=== PATIENT | male | born 1945 | race Caucasian/White ===

== ENCOUNTER 2016-07-30 14:30 | Emergency (ER) | payer MEDICARE, BC ==
--- NOTE | 2016-07-30 16:21 | ER Document Report ---
ED Medical Screen (RME) - General Chief Complaint: Shortness Of Breath Stated Complaint: SHORT OF BREATH Time Seen by Provider: 07/30/16 16:15 Mode of Arrival: Wheelchair Information source: Patient TRAVEL OUTSIDE OF THE [place] IN LAST 30 DAYS: No - HPI Patient complains to provider of: Breathing, generalized weakness, nausea, headache, shortness of breath Notes: 07/30/16 16:20 Patient is a 70-year-old male who presents to the emergency room complaining of generalized weakness, headache, dizziness, chest tightness, shortness of breath , with nausea, symptoms started this morning, feels as though he was outside working too hard in the sun in the garden yesterday and may have over worked himself - Related Data Allergies/Adverse Reactions: No Known Allergies Allergy (Verified 07/30/16 14:35) Past Medical History - Past Medical History Cardiac Medical History: Reports: Hx Coronary Artery Disease, Hx Heart Attack, Hx Hypercholesterolemia, Hx Hypertension Pulmonary Medical History: Denies: Hx Asthma, Hx Bronchitis, Hx COPD, Hx Pneumonia, Hx Tuberculosis Neurological Medical History: Denies: Hx Cerebrovascular Accident, Hx Seizures Renal/ Medical History: Denies: Hx Peritoneal Dialysis Musculoskeltal Medical History: Reports Hx Arthritis Psychiatric Medical History: Denies: Hx Depression Past Surgical History: Reports: Hx Cardiac Surgery - Stent, Hx Orthopedic Surgery - Left foot, right ear, Hx Tonsillectomy. Denies: Hx Pacemaker - Immunizations Hx Diphtheria, Pertussis, Tetanus Vaccination: Yes Physical Exam - Vital signs Vitals: Temp Pulse Resp BP Pulse Ox 99.0 F 94 18 138/67 H 97 07/30/16 14:35 07/30/16 14:35 07/30/16 14:35 07/30/16 14:35 07/30/16 14:35 Course - Vital Signs Vital signs: Temp Pulse Resp BP Pulse Ox 99.0 F 94 18 138/67 H 97 07/30/16 14:35 07/30/16 14:35 07/30/16 14:35 07/30/16 14:35 07/30/16 14:35
[2016-07-30] MEDS: NORMAL SALINE 1000 ML 1,000 ML IV PRN ×2 (16:46→20:35)
[2016-07-30 16:57] LABS: ABSOLUTE BASOPHILS # (AUTO) 0.1 10^3/uL (0.0-0.2); ABSOLUTE EOSINOPHILS # (AUTO) 0.2 10^3/uL (0.0-0.6); ABSOLUTE LYMPHOCYTES (AUTO) 3.4 10^3/uL (0.5-4.7); ABSOLUTE MONOCYTES (AUTO) 0.9 10^3/uL (0.1-1.4); ABSOLUTE NEUT (AUTO) 6.4 10^3/uL (1.7-8.2); BASOPHILS % (AUTO) 0.9 % (0-2); EOSINOPHILS % (AUTO) 2.2 % (0-6); HEMATOCRIT 38.4 % (37.9-51.0); HEMOGLOBIN 12.7 g/dL (13.5-17.0); HGB HCT DIFFERENCE -0.3; LYMPHOCYTES % (AUTO) 30.7 % (13-45); MEAN CORPUSCULAR HGB CONC 33.1 g/dL (32.0-36.0); MEAN CORPUSCULAR VOLUME 91 fl (80-97); RED BLOOD COUNT 4.23 10^6/uL (4.35-5.55); SEGMENTED NEUTROPHILS % (AUTO) 58.2 % (42-78)
[2016-07-30 17:01] LABS: APPEARANCE,URINE CLEAR; BILIRUBIN,URINE NEGATIVE (NEGATIVE); GLUCOSE, URINE 50 mg/dL (NEGATIVE); KETONES,URINE NEGATIVE (NEGATIVE); LEUKOCYTE ESTERASE,URINE NEGATIVE (NEGATIVE); NITRITE,URINE NEGATIVE (NEGATIVE); PROTEIN,URINE 100 mg/dL (NEGATIVE); URINE SPECIFIC GRAVITY 1.009; UROBILINOGEN,URINE NEGATIVE mg/dL (<2.0)
[2016-07-30 17:22] LABS: ALANINE AMINOTRANSFERASE 31 U/L (21-72); ALBUMIN 4.2 g/dL (3.5-5.0); ALKALINE PHOSPHATASE 71 U/L (38-126); ANION GAP 13 (5-19); ASPARTATE AMINO TRANSFERASE 25 U/L (17-59); BILIRUBIN,DIRECT 0.3 mg/dL (0.0-0.4); BILIRUBIN,TOTAL 0.3 mg/dL (0.2-1.3); BLOOD UREA NITROGEN 26 mg/dL (7-20); CARBON DIOXIDE 25 mmol/L (22-30); CHLORIDE 101 mmol/L (98-107); CREATINE KINASE 122 U/L (55-170); CREATININE RESULT 1.34 mg/dL (0.52-1.25); GLUCOSE 146 mg/dL (75-110); POTASSIUM 4.7 mmol/L (3.6-5.0); SODIUM 138.7 mmol/L (137-145); TOTAL PROTEIN 7.5 g/dL (6.3-8.2)
--- NOTE | 2016-07-30 17:27 | RADIOLOGY REPORT (SQ) ---
EXAM DESCRIPTION: CHEST PA/LAT COMPLETED DATE/TIME: 07/30/2016 5:00 pm REASON FOR STUDY: db COMPARISON: 09/01/2015 EXAM PARAMETERS: NUMBER OF VIEWS: two views TECHNIQUE: Digital Frontal and Lateral radiographic views of the chest acquired. RADIATION DOSE: NA LIMITATIONS: none FINDINGS: LUNGS AND PLEURA: There is some ill-defined opacity in the right lung compared to the left . The heart size is normal. There is mild pulmonary vascular prominence. There is no pleural effus ion. On the lateral view, no infiltrate is appreciated. MEDIASTINUM AND HILAR STRUCTURES: No masses or contour abnormalities. HEART AND VASCULAR STRUCTURES: Heart normal size. No evidence for failure. BONES: No acute findings. HARDWARE: None in the chest. OTHER: No other significant finding. IMPRESSION: A very limited infiltrate in the right lung cannot be ruled out. TECHNICAL DOCUMENTATION: JOB ID: [id number] [employer]- All Rights Reserved
[2016-07-30 17:31] LABS: CREATINE KINASE MB 2.2 ng/mL (<4.55)
[2016-07-30 17:35] LABS: TROPONIN I 0.112 ng/mL
[2016-07-30] MEDS ORDERED: ASPIRIN 325 MG TABLET PO ONE (17:41)
[2016-07-30] MEDS ORDERED: ENOXAPARIN SODIUM INJ 80 MG/0.8 ML DISP.SYRIN SUBCUT SCH (17:45)
--- NOTE | 2016-07-30 17:57 | EKG REPORT ---
SEVERITY:- ABNORMAL ECG - SINUS RHYTHM NONSPECIFIC INTRAVENTRICULAR CONDUCTION DELAY INFERIOR INFARCT, AGE INDETERMINATE : Confirmed by: Chery Meraz MD 30-Jul-2016 17:55:30
[2016-07-30] MEDS ORDERED: ENOXAPARIN SODIUM INJ 80 MG/0.8 ML DISP.SYRIN SUBCUT ONE (18:30)
[2016-07-30 18:41] LABS: PARTIAL THROMBOPLASTIN TIME 28.6 SEC (23.5-35.8); PROTHROMBIN TIME 11.9 SEC (11.4-15.4)
--- NOTE | 2016-07-30 19:29 | ER Document Report ---
ED General - General Chief Complaint: Shortness Of Breath Stated Complaint: SHORT OF BREATH Time Seen by Provider: 07/30/16 16:15 Mode of Arrival: Wheelchair Notes: Patient is a 70-year-old male, past medical history CAD status post one stent "in the ", hypertension, DM, former smoker, CHF w/ EF (30% on 01/04/2015), presents with 1 day of shortness of breath, generalized weakness and a brief episode of chest pain and epigastric abdominal pain yesterday when he was outside working. The chest pain lasted a few minutes and was a left upper chest wall pressure. He denies any current chest pain, leg swelling, nausea, vomiting , abdominal pain, fevers, back pain, numbness or tingling. TRAVEL OUTSIDE OF THE [place] IN LAST 30 DAYS: No - Related Data Allergies/Adverse Reactions: No Known Allergies Allergy (Verified 07/30/16 14:35) Past Medical History - General Information source: Patient - Social History Smoking Status: Former Smoker Chew tobacco use (# tins/day): No Frequency of alcohol use: None Drug Abuse: None Family History: Reviewed & Not Pertinent Patient has suicidal ideation: No Patient has homicidal ideation: No - Past Medical History Cardiac Medical History: Reports: Hx Coronary Artery Disease, Hx Heart Attack, Hx Hypercholesterolemia, Hx Hypertension Pulmonary Medical History: Denies: Hx Asthma, Hx Bronchitis, Hx COPD, Hx Pneumonia, Hx Tuberculosis Neurological Medical History: Denies: Hx Cerebrovascular Accident, Hx Seizures Renal/ Medical History: Denies: Hx Peritoneal Dialysis Musculoskeltal Medical History: Reports Hx Arthritis Psychiatric Medical History: Denies: Hx Depression Past Surgical History: Reports: Hx Cardiac Surgery - Stent, Hx Orthopedic Surgery - Left foot, right ear, Hx Tonsillectomy. Denies: Hx Pacemaker - Immunizations Hx Diphtheria, Pertussis, Tetanus Vaccination: Yes Review of Systems - Review of Systems Notes: REVIEW OF SYSTEMS: CONSTITUTIONAL: -fevers, -chills EENT: -eye pain, -difficulty swallowing, -nasal congestion CARDIOVASCULAR: +chest pain, -syncope. RESPIRATORY: -cough, +SOB GASTROINTESTINAL: -abdominal pain, -nausea, -vomiting, -diarrhea GENITOURINARY: -dysuria, -hematuria MUSCULOSKELETAL: -back pain, -neck pain SKIN: -rash or skin lesions. HEMATOLOGIC: -easy bruising or bleeding. LYMPHATIC: -swollen, enlarged glands. NEUROLOGICAL: -altered mental status or loss of consciousness, -headache, - neurologic symptoms PSYCHIATRIC: -anxiety, -depression. ALL OTHER SYSTEMS REVIEWED AND NEGATIVE. Physical Exam - Vital signs Vitals: Temp Pulse Resp BP Pulse Ox 99.0 F 94 18 138/67 H 97 07/30/16 14:35 07/30/16 14:35 07/30/16 14:35 07/30/16 14:35 07/30/16 14:35 - Notes Notes: PHYSICAL EXAMINATION: GENERAL: Well-appearing, well-nourished and in no acute distress. HEAD: Atraumatic, normocephalic. EYES: Pupils equal round and reactive to light, extraocular movements intact, sclera anicteric, conjunctiva are normal. ENT: nares patent, oropharynx clear without exudates. Moist mucous membranes. NECK: Normal range of motion, supple without lymphadenopathy LUNGS: Breath sounds clear to auscultation bilaterally and equal. No wheezes rales or rhonchi. HEART: Regular rate and rhythm without murmurs ABDOMEN: Soft, nontender, normoactive bowel sounds. No guarding, no rebound. No masses appreciated. EXTREMITIES: Normal range of motion, no pitting or edema. No cyanosis. NEUROLOGICAL: Cranial nerves grossly intact. Normal speech, normal gait. Normal sensory and motor exams. PSYCH: Normal mood, normal affect. SKIN: Warm, Dry, normal turgor, no rashes or lesions noted. Course - Re-evaluation Re-evalutation: Pt with chest pain yesterday, but no chest pain today. He does not appear to be in any respiratory distress. His first troponin is 0.112 and his prior troponins were negative. EKG is unchanged from her EKG 09/02/2015. CTA chest done to assess for presence of PE, but no large PE is seen. Patient provided with aspirin and Lovenox. His network architect is Dr. Garcia at [facility]. Placed call for transfer at 21:00 for evaluation by Interventional Cardiology. Pt is HD stable at this time. 07/30/16 21:[address] George ([facility] Hospitalist) and he has accepted the patient. - Vital Signs Vital signs: Temp Pulse Resp BP Pulse Ox 97.6 F 94 18 162/79 H 99 07/30/16 20:30 07/30/16 14:35 07/30/16 14:35 07/30/16 19:01 07/30/16 19:01 - Laboratory Result Diagrams: 07/30/16 16:35 07/30/16 16:35 Laboratory results interpreted by me: 07/30/16 07/30/16 07/30/16 16:35 16:35 16:35 WBC 11.0 H RBC 4.23 L Hgb 12.7 L BUN 26 H Creatinine 1.34 H Est GFR (Non-Af Amer) 52 L Glucose 146 H Urine Protein 100 H Urine Glucose (UA) 50 H - Diagnostic Test Radiology reviewed: Image reviewed, Reports reviewed Radiology results interpreted by me: CXR: NAD CTA Chest: No PE. - EKG Interpretation by Me EKG shows normal: Sinus rhythm, [place], Intervals, QRS Complexes When compared to previous EKG there are: No significant change - 09/02/15 Additional EKG results interpreted by me: ST depressions in inferior leads, unchanged from 09/02/2015 EKG Discharge - Discharge Clinical Impression: NSTEMI (non-ST elevated myocardial infarction) Dyspnea Qualifiers: Dyspnea type: unspecified Qualified Code(s): R06.00 - Dyspnea, unspecified Chest pain Qualifiers: Chest pain type: unspecified Qualified Code(s): R07.9 - Chest pain, unspecified Condition: Stable Disposition: [facility]
--- NOTE | 2016-07-30 20:58 | RADIOLOGY REPORT (SQ) ---
EXAM DESCRIPTION: CTA CHEST COMPLETED DATE/TIME: 07/30/2016 8:37 pm REASON FOR STUDY: SOB, elevated troponin COMPARISON: None. TECHNIQUE: CT scan of the chest performed using helical scanning technique with dynamic intravenous contrast injection. Images reviewed with lung, soft tissue and bone windows. Reconstructed coronal and sagittal MPR images reviewed. Additional 3 dimensional post-processing performed to develop Maximal Intensity Projection images (HI P). All images stored on PACS. All CT scanners at this facility use dose modulation, iterative reconstruction, and/or weight based d osing when appropriate to reduce radiation dose to as low as reasonably achievable (ALARA). [facility]: Dose Right [facility]: CareDose [facility]: Dose Right [facility]: Teradose 4D [facility]: BlogHer CONTRAST TYPE AND DOSE: contrast/concentration: Isovue 370.00 mg/ml; Total Contrast Delivered: 70.0 ml; Total Saline Delivered: 100.0 ml RENAL FUNCTION: GFR > 60. RADIATION DOSE: 27.55 . LIMITATIONS: Systemic phase of the contrast bolus and mild breathing motion artifact. FINDINGS: LUNGS AND PLEURA: No dense consolidation. Bilateral subpleural interstitial thickening an d nodularity. Small fibrotic changes are present in both lung bases. No pneumothorax. No pleural effusions, calcifications. AORTA AND GREAT VESSELS: No aneurysm or dissection. HEART: No pericardial effusion. PULMONARY ARTERIES: No emboli visualized in the main pulmonary arteries. Bolus timing and breathing motion artifact limits evaluation of the segmental branches. HILAR AND MEDIASTINAL STRUCTURES: No identified masses or abnormal nodes. HARDWARE: None in the chest. UPPER ABDOMEN: Right renal cyst. Limited exam. THYROID AND OTHER SOFT TISSUES: No masses. No adenopathy. BONES: No acute or significant finding. 3D MIPS: Confirm above findings. OTHER: No other significant finding. IMPRESSION: No emboli visualized in the main pulmonary arteries. Bolus timing and breathing motion artifact limits evaluation of the segmental branches. No dense consolidation. Bilateral subpleural interstitial thickening and nodularity. Small fibrotic changes are present in both lung bases. No pneumothorax. No pleural effusions. TECHNICAL DOCUMENTATION: JOB ID: [id number] Quality ID # [id number]: Final reports with documentation of one or more dose reduction techniques (e.g., Au tomated exposure control, adjustment of the mA and/or kV according to patient size, use of iterative reconstruction technique) 2010 [employer]- All Rights Reserved
[2016-07-31 01:19] VITALS: BP 169/74
[2016-07-31] MEDS ORDERED: ENOXAPARIN SODIUM INJ 80 MG/0.8 ML DISP.SYRIN SUBCUT SCH (06:00)
== END 2016-07-31 01:18 | disposition short-term general hospital (02) ==
LOC: ER 14:30
DX: I21.4 Non-ST elevation (NSTEMI) myocardial infarction (principal); R07.9 Chest pain, unspecified; R06.00 Dyspnea, unspecified; R06.02 Shortness of breath; I25.10 Atherosclerotic heart disease of native coronary artery without angina pectoris; I10 Essential (primary) hypertension; E11.9 Type 2 diabetes mellitus without complications; Z87.891 Personal history of nicotine dependence; I50.9 Heart failure, unspecified; R53.1 Weakness; R10.13 Epigastric pain
CPT/HCPCS: 93005; 99285; 36415; 87086; 82553; 82550; 85025; 85610; 85730; 80053; 81001; 84484; 83880; 71020; 71275; 93010; A9270; J7030; J1650

== ENCOUNTER 2016-10-28 04:08 | Emergency (ER) | payer MEDICARE, BC ==
--- NOTE | 2016-10-28 04:50 | ER Document Report ---
ED Extremity Problem, Upper - General Chief Complaint: Shoulder Pain Stated Complaint: SHOULDER PAIN Time Seen by Provider: 10/28/16 04:42 Mode of Arrival: Ambulatory Information source: Patient TRAVEL OUTSIDE OF THE [place] IN LAST 30 DAYS: No - HPI Patient complains to provider of: Pain, Right, Left, Shoulder Recent injury: No Quality of pain: Achy Severity of pain: Moderate Pain Level: 3 Associated symptoms: None Exacerbated by: Movement Relieved by: Nothing Notes: Patient is a 70-year-old male presenting to the emergency room complaining of bilateral shoulder pain, the right shoulder has been bothering him for several months and started after he was pulling weeds in the garden, the left shoulder has been bothering him for the past week and he denies any specific injury, he reports that the shoulders are painful to move, he took acetaminophen prior to coming to the emergency room which relieved his pain slightly, he denies any chest pain or shortness of breath - Related Data Allergies/Adverse Reactions: No Known Allergies Allergy (Verified 10/28/16 04:23) Past Medical History - General Information source: Patient - Social History Smoking Status: Former Smoker Family History: Reviewed & Not Pertinent - Past Medical History Cardiac Medical History: Reports: Hx Coronary Artery Disease, Hx Heart Attack, Hx Hypercholesterolemia, Hx Hypertension Pulmonary Medical History: Denies: Hx Asthma, Hx Bronchitis, Hx COPD, Hx Pneumonia, Hx Tuberculosis Neurological Medical History: Denies: Hx Cerebrovascular Accident, Hx Seizures Renal/ Medical History: Denies: Hx Peritoneal Dialysis Musculoskeltal Medical History: Reports Hx Arthritis Psychiatric Medical History: Denies: Hx Depression Past Surgical History: Reports: Hx Cardiac Surgery - Stent, Hx Orthopedic Surgery - Left foot, right ear, Hx Tonsillectomy. Denies: Hx Pacemaker - Immunizations Hx Diphtheria, Pertussis, Tetanus Vaccination: Yes Review of Systems - Review of Systems Constitutional: No symptoms reported EENT: No symptoms reported Cardiovascular: No symptoms reported Respiratory: No symptoms reported Gastrointestinal: No symptoms reported Genitourinary: No symptoms reported Male Genitourinary: No symptoms reported Musculoskeletal: See HPI Skin: No symptoms reported Hematologic/Lymphatic: No symptoms reported Neurological/Psychological: No symptoms reported -: Yes All other systems reviewed and negative Physical Exam - Vital signs Vitals: Temp Pulse Resp BP Pulse Ox 97.6 F 80 21 H 171/77 H 93 10/28/16 04:23 10/28/16 04:10/28/16 04:10/28/16 04:10/28/16 04:23 - Notes Notes: - General General appearance: Appears well, Alert In distress: None - HEENT Head: Normocephalic, Atraumatic Eyes: Normal Conjunctiva: Normal Extraocular movements intact: Yes Eyelashes: Normal Pupils: PERRL - Respiratory Respiratory status: No respiratory distress - Cardiovascular Rhythm: Regular - Abdominal Inspection: Normal - Back Back: Normal - Extremities General upper extremity: Tenderness to palpate in bilateral trapezius muscles radiating down to the deltoids and anteriorly over the biceps, patient reports pain with range of motion testing, distal sensation and motor is intact with 2+ radial pulses bilaterally General lower extremity: Normal inspection - Neurological Neuro grossly intact: Yes Orientation: AAOx4 [place] Coma Scale Eye Opening: Spontaneous [place]na Coma Scale Verbal: Oriented Amna Coma Scale Motor: Obeys Commands [place] Coma Scale Total: 15 - Psychological Associated symptoms: Normal affect, Normal mood - Skin Skin Temperature: Warm Skin Moisture: Dry Skin Color: Normal Course - Re-evaluation Re-evalutation: 10/28/16 05:42 Imaging findings were discussed with patient at bedside which are consistent with tendinitis, he was given a prescription for a small amount of pain medication and advised to follow-up with his primary care provider and an orthopedic surgeon, or return if symptoms worsen, patient acknowledges understanding and agreement with this plan - Vital Signs Vital signs: Temp Pulse Resp BP Pulse Ox 97.6 F 80 21 H 171/77 H 93 10/28/16 04:10/28/16 04:10/28/16 04:10/28/16 04:10/28/16 04:23 - Diagnostic Test Radiology reviewed: Image reviewed, Reports reviewed Discharge - Discharge Clinical Impression: Tendinitis Shoulder pain, bilateral Qualifiers: Chronicity: chronic Qualified Code(s): M25.512 - Pain in left shoulder Condition: Stable Disposition: HOME, SELF-CARE Instructions: Ice Packs ([facility]), Tendonitis ([facility]) Additional Instructions: Follow up with your primary care provider and an orthopedic surgeon in one to 2 days. Return to the emergency room immediately if symptoms worsen or any additional concerns. Prescriptions: Hydrocodone/Acetaminophen [Hydrocodon-Acetaminophen 5-325] 1 each PO Q6 #10 tablet Referrals: EDY NICOLE DO [Primary Care Provider] - Follow up as needed JULIAN DO MD [ACTIVE STAFF] - Follow up as needed
--- NOTE | 2016-10-28 05:34 | RADIOLOGY REPORT (SQ) ---
EXAM DESCRIPTION: SHOULDER BILAT 2 OR MORE VIEWS COMPLETED DATE/TIME: 10/28/2016 5:05 am REASON FOR STUDY: pain . Pain at the bilateral shoulder joints. COMPARISON: None. NUMBER OF VIEWS: Six views. TECHNIQUE: Internal rotation, external rotation, and Y view images acquired of the right and left sh oulders. LIMITATIONS: None. FINDINGS: RIGHT SHOULDER: MINERALIZATION: Normal. BONES: No acute fracture or dislocation. No worrisome bone lesions. JOINTS: No dislocation. Small calcification at the insertion of the supraspinatus tendon. VISUALIZED LUNGS AND RIBS: No pneumothorax. No displaced rib fracture. SOFT TISSUES: No radiopaque foreign body. LEFT SHOULDER: MINERALIZATION: Normal. BONES: No acute fracture or dislocation. No worrisome bone lesions. JOINTS: No dislocation. VISUALIZED LUNGS AND RIBS: No pneumothorax. No displaced rib fracture. SOFT TISSUES: No radiopaque foreign body. IMPRESSION: No radiographic evidence of acute injury. Small calcification at the right supraspinatu s tendon, suggestive of calcific tendinitis. TECHNICAL DOCUMENTATION: JOB ID: [id number] [place]- All Rights Reserved
[2016-10-28] MEDS ORDERED: HYDROCODONE/ACETAMINOPHEN 5-325 MG 6 TAB/DSPK PO PRN (05:40)
[2016-10-28 05:53] VITALS: BP 168/110
== END 2016-10-28 05:55 | disposition home or self-care (01) ==
LOC: ER 04:08
DX: M75.92 Shoulder lesion, unspecified, left shoulder (principal); M25.512 Pain in left shoulder; M25.511 Pain in right shoulder; Z87.891 Personal history of nicotine dependence
CPT/HCPCS: 99283; 73030; A9270

== ENCOUNTER → 2016-11-15 | Outpatient (CLI) | payer MEDICARE, BC ==
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
--- NOTE | 2016-11-15 16:43 | RADIOLOGY REPORT (SQ) ---
EXAM DESCRIPTION: CHEST PA/LATERAL COMPLETED DATE/TIME: 11/15/2016 3:22 pm REASON FOR STUDY: COUGH COMPARISON: 07/30/2016 EXAM PARAMETERS: NUMBER OF VIEWS: two views TECHNIQUE: Digital Frontal and Lateral radiographic views of the chest acquired. RADIATION DOSE: NA LIMITATIONS: none FINDINGS: LUNGS AND PLEURA: Chronic interstitial changes are suggested. There is no acute infiltrat e effusion. There is no mass. MEDIASTINUM AND HILAR STRUCTURES: No masses or contour abnormalities. HEART AND VASCULAR STRUCTURES: Heart normal size. No evidence for failure. BONES: No acute findings. HARDWARE: None in the chest. OTHER: No other significant finding. IMPRESSION: Chronic lung changes with no acute cardiopulmonary disease. TECHNICAL DOCUMENTATION: JOB ID: [id number] [employer]- All Rights Reserved
--- NOTE | 2016-11-15 16:46 | RADIOLOGY REPORT (SQ) ---
EXAM DESCRIPTION: FOOT RIGHT COMPLETE COMPLETED DATE/TIME: 11/15/2016 3:22 pm REASON FOR STUDY: PAIN IN RIGHT FOOT M25.561 PAIN IN RIGHT KNEE M25.562 PAIN IN LEFT KNEE R05 COU GH COMPARISON: None. NUMBER OF VIEWS: Three views. TECHNIQUE: AP, lateral and oblique radiographic images acquired of the right foot. LIMITATIONS: None. FINDINGS: MINERALIZATION: Normal. BONES: No acute fracture or dislocation. No worrisome bone lesions. JOINTS: No effusions. SOFT TISSUES: No soft tissue swelling. No foreign body. OTHER: No other significant finding. IMPRESSION: NEGATIVE STUDY OF THE RIGHT FOOT. NO RADIOGRAPHIC EVIDENCE OF ACUTE INJURY. TECHNICAL DOCUMENTATION: JOB ID: [id number] [employer]- All Rights Reserved
--- NOTE | 2016-11-15 16:46 | RADIOLOGY REPORT (SQ) ---
EXAM DESCRIPTION: FOOT LEFT COMPLETE COMPLETED DATE/TIME: 11/15/2016 3:22 pm REASON FOR STUDY: PAIN IN LEFT FOOT M25.561 PAIN IN RIGHT KNEE M25.562 PAIN IN LEFT KNEE R05 COUG H COMPARISON: 09/30/2011 NUMBER OF VIEWS: Three views. TECHNIQUE: AP, lateral and oblique radiographic images acquired of the left foot. LIMITATIONS: None. FINDINGS: MINERALIZATION: Normal. BONES: No acute fracture or dislocation. No worrisome bone lesions. JOINTS: No effusions. SOFT TISSUES: No soft tissue swelling. No foreign body. OTHER: No other significant finding. IMPRESSION: NEGATIVE STUDY OF THE LEFT FOOT. NO RADIOGRAPHIC EVIDENCE OF ACUTE INJURY. TECHNICAL DOCUMENTATION: JOB ID: [id number] [employer] All Rights Reserved
== END ==
LOC: OD 14:50
PROVIDERS: ATTEND Family Medicine
DX: M25.561 Pain in right knee (principal); M25.562 Pain in left knee; R05 Cough; M79.671 Pain in right foot; M79.672 Pain in left foot
CPT/HCPCS: 71020

== ENCOUNTER 2017-03-26 18:29 | Emergency (ER) | payer MEDICARE, BC ==
[2017-03-26] MEDS ORDERED: NORMAL SALINE 1000 ML 500 ML IV ONE (18:57)
--- NOTE | 2017-03-26 18:59 | ER Document Report ---
ED Medical Screen (RME) - General Chief Complaint: Pain All Over Stated Complaint: WEAKNESS Time Seen by Provider: 03/26/17 18:47 Notes: 71-year-old male here with complaints of generalized weakness and joint pains ongoing for the past few weeks. He states that it has gotten to the point where he is having difficulty getting up and getting around the house. He can normally get up, move, and ambulate fairly well his reports and she states this is unusual for him. He has been eating appropriately but has not been drinking as much as usual. He denies any chest pain shortness of breath cough vomiting diarrhea abdominal pain. He complains of joint pains but denies any falls or traumatic injury. TRAVEL OUTSIDE OF THE [place] IN LAST 30 DAYS: No - Related Data Allergies/Adverse Reactions: No Known Allergies Allergy (Verified 10/28/16 04:23) Past Medical History - Past Medical History Cardiac Medical History: Reports: Hx Coronary Artery Disease, Hx Heart Attack, Hx Hypercholesterolemia, Hx Hypertension Pulmonary Medical History: Denies: Hx Asthma, Hx Bronchitis, Hx COPD, Hx Pneumonia, Hx Tuberculosis Neurological Medical History: Denies: Hx Cerebrovascular Accident, Hx Seizures Renal/ Medical History: Denies: Hx Peritoneal Dialysis Musculoskeltal Medical History: Reports Hx Arthritis Psychiatric Medical History: Denies: Hx Depression Past Surgical History: Reports: Hx Cardiac Surgery - Stent, Hx Orthopedic Surgery - Left foot, right ear, Hx Tonsillectomy. Denies: Hx Pacemaker - Immunizations Hx Diphtheria, Pertussis, Tetanus Vaccination: Yes Physical Exam - Vital signs Vitals: Temp Pulse Resp BP Pulse Ox 97.7 F 84 18 153/73 H 99 03/26/17 18:41 03/26/17 18:41 03/26/17 18:41 03/26/17 18:41 03/26/17 18:41 Course - Vital Signs Vital signs: Temp Pulse Resp BP Pulse Ox 97.7 F 84 18 153/73 H 99 03/26/17 18:41 03/26/17 18:41 03/26/17 18:41 03/26/17 18:41 03/26/17 18:41
[2017-03-26 19:21] LABS: ABSOLUTE BASOPHILS # (AUTO) 0.1 10^3/uL (0.0-0.2); ABSOLUTE EOSINOPHILS # (AUTO) 0.1 10^3/uL (0.0-0.6); ABSOLUTE LYMPHOCYTES (AUTO) 2.5 10^3/uL (0.5-4.7); ABSOLUTE NEUT (AUTO) 14.3 10^3/uL (1.7-8.2); BASOPHILS % (AUTO) 0.6 % (0-2); EOSINOPHILS % (AUTO) 0.7 % (0-6); HEMATOCRIT 34.8 % (37.9-51.0); HEMOGLOBIN 11.7 g/dL (13.5-17.0); LYMPHOCYTES % (AUTO) 13.9 % (13-45); MEAN CORPUSCULAR HEMOGLOBIN 30.1 pg (27.0-33.4); MEAN CORPUSCULAR HGB CONC 33.5 g/dL (32.0-36.0); MEAN CORPUSCULAR VOLUME 90 fl (80-97); MONOCYTES % (AUTO) 5.6 % (3-13); PLATELET COUNT 542 10^3/uL (150-450); RED BLOOD COUNT 3.88 10^6/uL (4.35-5.55); RED CELL DISTRIBUTION WIDTH 13.6 % (11.5-14.0); SEGMENTED NEUTROPHILS % (AUTO) 79.2 % (42-78); TOTAL CELLS COUNTED % (AUTO) 100 %; WHITE BLOOD COUNT 18.1 10^3/uL (4.0-10.5)
--- NOTE | 2017-03-26 19:21 | RADIOLOGY REPORT (SQ) ---
EXAM DESCRIPTION: CHEST PA/LAT COMPLETED DATE/TIME: 03/26/2017 7:14 pm REASON FOR STUDY: weakness; eval for pneumonia COMPARISON: 07/30/2016 EXAM PARAMETERS: NUMBER OF VIEWS: two views TECHNIQUE: Digital Frontal and Lateral radiographic views of the chest acquired. RADIATION DOSE: NA LIMITATIONS: none FINDINGS: LUNGS AND PLEURA: No opacities, masses or pneumothorax. No pleural effusion. MEDIASTINUM AND HILAR STRUCTURES: No masses or contour abnormalities. HEART AND VASCULAR STRUCTURES: Heart normal size. No evidence for failure. BONES: No acute findings. HARDWARE: None in the chest. OTHER: No other significant finding. IMPRESSION: No acute pulmonary disease. TECHNICAL DOCUMENTATION: JOB ID: [id number] [employer]- All Rights Reserved
[2017-03-26 19:32] LABS: APPEARANCE,URINE SLIGHTLY-CLOUDY; BILIRUBIN,URINE NEGATIVE (NEGATIVE); COLOR,URINE YELLOW; GLUCOSE, URINE >=500 mg/dL (NEGATIVE); KETONES,URINE NEGATIVE (NEGATIVE); LEUKOCYTE ESTERASE,URINE NEGATIVE (NEGATIVE); NITRITE,URINE NEGATIVE (NEGATIVE); PROTEIN,URINE >=500 mg/dL (NEGATIVE); URINE SPECIFIC GRAVITY 1.024; UROBILINOGEN,URINE NEGATIVE mg/dL (<2.0)
[2017-03-26 19:39] LABS: ANION GAP 15 (5-19); BLOOD UREA NITROGEN 28 mg/dL (7-20); CARBON DIOXIDE 24 mmol/L (22-30); CHLORIDE 97 mmol/L (98-107); GLUCOSE 309 mg/dL (75-110); MAGNESIUM 1.7 mg/dL (1.6-2.3); PHOSPHORUS 3.6 mg/dL (2.5-4.5); POTASSIUM 5.6 mmol/L (3.6-5.0); SODIUM 135.9 mmol/L (137-145)
[2017-03-26 20:59] LABS: A TYPE INFLUENZA AG NEGATIVE (NEGATIVE)
[2017-03-26 21:00] LABS: B INFLUENZA AG NEGATIVE (NEGATIVE)
[2017-03-26] MEDS ORDERED: HYDROCODONE/ACETAMINOPHEN 5-325 MG TABLET PO ONE (21:01)
--- NOTE | 2017-03-26 21:16 | ER Document Report ---
ED General - General Chief Complaint: Pain All Over Stated Complaint: WEAKNESS Time Seen by Provider: 03/26/17 18:47 Mode of Arrival: Ambulatory Information source: Patient Notes: 71-year-old male presents with complaints of generalized joint pain. Patient notes is worsened over the past 3 weeks, denies any fevers or chills, patient states is only his joints that hurt he has been seen twice for this and was told that it is arthritic patient has follow-up again in a few days TRAVEL OUTSIDE OF THE [place] IN LAST 30 DAYS: No - HPI Onset: Other Onset/Duration: Persistent Quality of pain: Achy Severity: Mild Pain Level: 1 Associated symptoms: Body/muscle aches Exacerbated by: Movement Relieved by: Denies Similar symptoms previously: Yes Recently seen / treated by doctor: Yes - Related Data Allergies/Adverse Reactions: ibuprofen Adverse Reaction (Verified 03/26/17 20:02) Past Medical History - Social History Smoking Status: Never Smoker Cigarette use (# per day): No Chew tobacco use (# tins/day): No Smoking Education Provided: No Family History: Reviewed & Not Pertinent Patient has suicidal ideation: No Patient has homicidal ideation: No - Past Medical History Cardiac Medical History: Reports: Hx Coronary Artery Disease, Hx Heart Attack, Hx Hypercholesterolemia, Hx Hypertension Pulmonary Medical History: Denies: Hx Asthma, Hx Bronchitis, Hx COPD, Hx Pneumonia, Hx Tuberculosis Neurological Medical History: Denies: Hx Cerebrovascular Accident, Hx Seizures Endocrine Medical History: Reports: Hx Diabetes Mellitus Type 2 Renal/ Medical History: Denies: Hx Peritoneal Dialysis Musculoskeltal Medical History: Reports Hx Arthritis Psychiatric Medical History: Denies: Hx Depression Past Surgical History: Reports: Hx Cardiac Surgery - Stent, Hx Orthopedic Surgery - Left foot, right ear, Hx Tonsillectomy. Denies: Hx Pacemaker - Immunizations Hx Diphtheria, Pertussis, Tetanus Vaccination: Yes Review of Systems - Review of Systems Notes: REVIEW OF SYSTEMS: CONSTITUTIONAL : Denies fever, chills, or sweats. Denies recent illness. EENT: Denies eye, ear, throat, or mouth pain or symptoms. Denies nasal or sinus congestion or discharge. Denies throat, tongue, or mouth swelling or difficulty swallowing. CARDIOVASCULAR: Denies chest pain. Denies palpitations or racing or irregular heart beat. Denies ankle edema. RESPIRATORY: Denies cough, cold, or chest congestion. Denies shortness of breath, difficulty breathing, or wheezing. GASTROINTESTINAL: Denies abdominal pain or distention. Denies nausea, vomiting , or diarrhea. Denies blood in vomitus, stools, or per rectum. Denies black, tarry stools. Denies constipation. GENITOURINARY: Denies difficulty urinating, painful urination, burning, frequency, blood in urine, or discharge. MUSCULOSKELETAL: Admits joint pain SKIN: Denies rash, lesions or sores. HEMATOLOGIC : Denies easy bruising or bleeding. LYMPHATIC: Denies swollen, enlarged glands. NEUROLOGICAL: Denies confusion or altered mental status. Denies passing out or loss of consciousness. Denies dizziness or lightheadedness. Denies headache. Denies weakness or paralysis or loss of use of either side. Denies problems with gait or speech. Denies sensory loss, numbness, or tingling. Denies seizures. PSYCHIATRIC: Denies anxiety or stress. Denies depression, suicidal ideation, or homicidal ideation. ALL OTHER SYSTEMS REVIEWED AND NEGATIVE. Dictation was performed using [email or web address] voice recognition software PHYSICAL EXAMINATION: GENERAL: Well-appearing, well-nourished and in no acute distress. HEAD: Atraumatic, normocephalic. EYES: Pupils equal round and reactive to light, extraocular movements intact, sclera anicteric, conjunctiva are normal. ENT: Nares patent, oropharynx clear without exudates. Moist mucous membranes. NECK: Normal range of motion, supple without lymphadenopathy LUNGS: Breath sounds clear to auscultation bilaterally and equal. No wheezes rales or rhonchi. HEART: Regular rate and rhythm without murmurs ABDOMEN: Soft, nontender, nondistended abdomen. No guarding, no rebound. No masses appreciated. Musculoskeletal: Arthritic changes noted in the joints NEUROLOGICAL: Cranial nerves grossly intact. Normal speech, normal gait. Normal sensory, motor exams PSYCH: Normal mood, normal affect. SKIN: Warm, Dry, normal turgor, no rashes or lesions noted. Physical Exam - Vital signs Vitals: Temp Pulse Resp BP Pulse Ox 97.7 F 84 18 153/73 H 99 03/26/17 18:41 03/26/17 18:41 03/26/17 18:41 03/26/17 18:41 03/26/17 18:41 Course - Re-evaluation Re-evalutation: 03/26/17 22:09 Patient upon arrival was noted to be hyperglycemic, he has been made aware of this, insulin givem pt rf was positive, i eugene ltreat with pain control and have pcp do further testing 03/26/17 22:13 Patient is afebrile does have an elevated white count which I believe is secondary to the pain, After performing a Medical Screening Examination, I estimate there is LOW risk for ACUTE CORONARY SYNDROME, PULMONARY EMBOLI, RESPIRATORY FAILURE, SEPSIS OR MENINGITIS, thus I consider the discharge disposition reasonable. I have reevaluated this patient multiple times and no significant life threatening changes are noted. The patient and I have discussed the diagnosis and risks, and we agree with discharging home with close follow-up. We also discussed returning to the Emergency Department immediately if new or worsening symptoms occur. We have discussed the symptoms which are most concerning (e.g., changing or worsening pain, trouble swallowing or breathing, neck stiffness, fever) that necessitate immediate return. - Vital Signs Vital signs: Temp Pulse Resp BP Pulse Ox 97.5 F 76 16 164/74 H 98 03/26/17 20:07 03/26/17 20:07 03/26/17 20:07 03/26/17 20:07 03/26/17 20:07 - Laboratory Result Diagrams: 03/26/17 19:08 03/26/17 19:08 Laboratory results interpreted by me: 03/26/17 03/26/17 03/26/17 19:00 19:08 19:08 WBC 18.1 H RBC 3.88 L Hgb 11.7 L Hct 34.8 L Plt Count 542 H Seg Neutrophils % 79.2 H Absolute Neutrophils 14.3 H Sodium 135.9 L Potassium 5.6 H Chloride 97 L BUN 28 H Glucose 309 H Calcium 11.0 H Urine Protein >=500 H Urine Glucose (UA) >=500 H Rheumatoid Factor 03/26/17 19:08 WBC RBC Hgb Hct Plt Count Seg Neutrophils % Absolute Neutrophils Sodium Potassium Chloride BUN Glucose Calcium Urine Protein Urine Glucose (UA) Rheumatoid Factor POSITIVE 1:256 H - Diagnostic Test Radiology reviewed: Image reviewed, Reports reviewed Discharge - Discharge Clinical Impression: Hyperglycemia Rheumatoid arthritis Qualifiers: Rheumatoid arthritis location: multiple sites Rheumatoid factor presence: with rheumatoid factor Qualified Code(s): M05.79 - Rheumatoid arthritis with rheumatoid factor of multiple sites without organ or systems involvement Joint pain Qualifiers: Joint pain location: unspecified Qualified Code(s): M25.50 - Pain in unspecified joint Hypertension Qualifiers: Hypertension type: essential hypertension Qualified Code(s): I10 - Essential ( primary) hypertension Condition: Stable Disposition: HOME, SELF-CARE Instructions: Rheumatoid Arthritis ([facility]) Prescriptions: Hydrocodone/Acetaminophen [[place] 5-325 mg Tablet] 1 tab PO Q6 #20 tablet Referrals: EYD NICOLE DO [Primary Care Provider] - Follow up tomorrow
--- NOTE | 2017-03-26 22:03 | RADIOLOGY REPORT (SQ) ---
EXAM DESCRIPTION: KNEE LEFT 4 VIEW COMPLETED DATE/TIME: 03/26/2017 9:48 pm REASON FOR STUDY: bony spurs? COMPARISON: None. NUMBER OF VIEWS: Four views. TECHNIQUE: AP, lateral, and both oblique radiographic images acquired of the left knee. LIMITATIONS: None. FINDINGS: MINERALIZATION: Normal. BONES: No acute fracture or dislocation. No worrisome bone lesions. No significant osteophytes. JOINT: No effusion. No chondrocalcinosis. OTHER: Multiple metallic foreign bodies. IMPRESSION: NEGATIVE STUDY OF THE LEFT KNEE. NO EXPLANATION FOR PAIN. TECHNICAL DOCUMENTATION: JOB ID: [id number] [employer]- All Rights Reserved
[2017-03-26] MEDS ORDERED: INSULIN REG, HUMAN 100 UNIT/ML 3 ML VIAL (PYX) SUBCUT ONE (22:09)
[2017-03-26 22:50] VITALS: BP 145/71
== END 2017-03-26 22:54 | disposition home or self-care (01) ==
LOC: ER 18:29
DX: M05.79 Rheumatoid arthritis with rheumatoid factor of multiple sites without organ or systems involvement (principal); E11.65 Type 2 diabetes mellitus with hyperglycemia; D72.829 Elevated white blood cell count, unspecified; I10 Essential (primary) hypertension; I25.10 Atherosclerotic heart disease of native coronary artery without angina pectoris; I25.2 Old myocardial infarction; Z95.5 Presence of coronary angioplasty implant and graft
CPT/HCPCS: 99285; 96360; 36415; 83735; 84100; 85025; 86430; 80048; 81001; 87804; 71046; 73562; A9270 ×2; J7030; J1815

== ENCOUNTER → 2017-05-30 | Outpatient (CLI) | payer MEDICARE, BC ==
--- NOTE | 2017-05-30 15:37 | RADIOLOGY REPORT (SQ) ---
EXAM DESCRIPTION: FOOT RIGHT COMPLETE COMPLETED DATE/TIME: 05/30/2017 12:28 pm REASON FOR STUDY: PAIN IN RIGHT FOOT M79.671 PAIN IN RIGHT FOOT COMPARISON: 11/15/2016 NUMBER OF VIEWS: Three views. TECHNIQUE: AP, lateral and oblique radiographic images acquired of the right foot. LIMITATIONS: None. FINDINGS: MINERALIZATION: Normal. BONES: No acute fracture or dislocation. No worrisome bone lesions. JOINTS: No effusions. SOFT TISSUES: No soft tissue swelling. No foreign body. OTHER: No other significant finding. IMPRESSION: NEGATIVE STUDY OF THE RIGHT FOOT. NO RADIOGRAPHIC EVIDENCE OF ACUTE INJURY. TECHNICAL DOCUMENTATION: JOB ID: [id number] [employer]- All Rights Reserved Reading location - IP/workstation name: [email or web address]
== END ==
LOC: OD 12:02
PROVIDERS: ATTEND Family Medicine
DX: M79.671 Pain in right foot (principal)

== ENCOUNTER 2017-11-12 21:45 | Emergency (ER) | payer MEDICARE, BC ==
--- NOTE | 2017-11-12 22:53 | ER Document Report ---
ED General - General Chief Complaint: Accidental Overdose Stated Complaint: DIFFICULTY BREATHING,DIZZINESS Time Seen by Provider: 11/12/17 22:41 Notes: Patient is a 71-year-old male who presents with complaint of multiple different complaints. Patient says that he has some dizziness. Says sometimes the dizziness is a spinning type sensation. Sometimes it is more just feeling dizzy and lightheaded. He says it is usually when he stands up. He says he has been diagnosed with vertigo in the past but says is a little bit worse now than it has been the past. Patient second complaint is just overall feeling weak. Says he is just felt fatigued. Is also felt that the timeline will be short of breath that is worse when he gets up and walks around. No associated chest pain. Patient's third complaint is of having urinary frequency. Says when he goes to urinate small amount of urine comes out and does not feel that he fully empties his bladder. He says he also has chronic diarrhea. He has had some mild intermittent abdominal pain. No new leg edema. On exam he does have what appears to be petechial lesions in arms and legs but he says these are old from previous bedbug bites. He has some chronic intermittent neck pain and arthritis in his neck. He has some intermittent headaches. He says he thinks headaches are related to his arthritis. 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 He does have a previous history of cardiac stent. He is on Plavix. He has most of his symptoms have been ongoing for a month. Is not yet yet seen his doctor in regards to the symptoms. TRAVEL OUTSIDE OF THE [place] IN LAST 30 DAYS: No - Related Data Allergies/Adverse Reactions: ibuprofen Adverse Reaction (Verified 03/26/17 20:02) Past Medical History - Social History Smoking Status: Never Smoker Frequency of alcohol use: None Drug Abuse: None Family History: Reviewed & Not Pertinent Patient has suicidal ideation: No Patient has homicidal ideation: No - Past Medical History Cardiac Medical History: Reports: Hx Coronary Artery Disease, Hx Heart Attack, Hx Hypercholesterolemia, Hx Hypertension Pulmonary Medical History: Denies: Hx Asthma, Hx Bronchitis, Hx COPD, Hx Pneumonia, Hx Tuberculosis Neurological Medical History: Denies: Hx Cerebrovascular Accident, Hx Seizures Endocrine Medical History: Reports: Hx Diabetes Mellitus Type 2 Renal/ Medical History: Denies: Hx Peritoneal Dialysis Musculoskeletal Medical History: Reports Hx Arthritis Psychiatric Medical History: Denies: Hx Depression Past Surgical History: Reports: Hx Cardiac Surgery - Stent, Hx Orthopedic Surgery - Left foot, right ear, Hx Tonsillectomy. Denies: Hx Pacemaker - Immunizations Hx Diphtheria, Pertussis, Tetanus Vaccination: Yes Review of Systems - Review of Systems Notes: My Normal Review Basic REVIEW OF SYSTEMS: CONSTITUTIONAL : Denies fever, chills, or sweats. Denies recent illness. EENT: Denies eye, ear, throat, or mouth pain or symptoms. Denies nasal or sinus congestion. CARDIOVASCULAR: Denies chest pain. RESPIRATORY: Some shortness of breath is worse with exertion. GASTROINTESTINAL: Denies abdominal pain. Denies nausea, vomiting, or diarrhea. Denies constipation. Last BM: GENITOURINARY: Urinary frequency. MUSCULOSKELETAL: Chronic neck pain. SKIN: No rash and extremities which patient says is chronic from previous bedbug bites. NEUROLOGICAL: Denies altered mental status or loss of consciousness. Intermittent headaches denies weakness or paralysis or loss of use of either side. Denies problems with gait or speech. Denies sensory or motor loss. ALL OTHER SYSTEMS REVIEWED AND NEGATIVE. Physical Exam - Vital signs Vitals: Temp Pulse Resp BP Pulse Ox 98.4 F 86 22 H 162/70 H 97 11/12/17 21:58 11/12/17 21:58 11/12/17 21:58 11/12/17 21:58 11/12/17 21:58 - Notes Notes: General Appearance: Well nourished, alert, cooperative, no acute distress, no obvious discomfort. Vitals: reviewed, See vital signs table. Head: no swelling or tenderness to the head Eyes: PERRL, EOMI, Conjuctiva clear Mouth: No decreasd moisture Throat: No tonsillar inflammation, No airway obstruction, Ears: Large amount of wax in the right ear. Left TM is normal-appearing. Neck: Supple, no neck tenderness, No thyromegaly Lungs: No wheezing, No rales, No rhonci, No accessory muscle use, good air exchange bilaterally. Heart: Normal rate, Regular rythm, No murmur, no rub Abdomen: Normal BS, soft, No rigidity, No abdominal tenderness, No guarding, no rebound, no abdominal masses, no organomegaly Extremities: strength 5/5 in all extremities, good pulses in all extremities, no swelling or tenderness in the extremities, no edema. Skin: warm, dry, appropriate color, no rash Neuro: speech clear, oriented x 3, normal affect, responds appropriately to questions. Cranial nerves II through XII are intact. Distal sensation intact. Patient moves all extremities without difficulty. Course - Re-evaluation Re-evalutation: 11/13/17 01:57 I used a curette and removed large amounts of hard wax in the patient's right ear. TM is now visualized and is normal-appearing. 11/13/17 05:14 Patient says after removing the wax from his ear he actually feels a lot better. I think a large amount of wax pushing into the eardrum is probably his recurring chronic vertigo even worse. Patient shows no signs of mastoid distress. Lung kinney are clear. His vital signs are normal. His chest x-ray is normal. His cardiac workup is negative. Is not had any chest pain. Feel that he is safe to be discharged home with close follow-up with his primary care doctor. I encouraged her return to ER if he has chest pain, difficulty breathing, worsening dizziness, or she feels that he is worsening in any way. Patient agrees with plan will be discharged home. Dictation of this chart was performed using voice recognition software; therefore, there may be some unintended grammatical errors. - Vital Signs Vital signs: Temp Pulse Resp BP Pulse Ox 98.4 F 86 19 146/81 H 98 11/12/17 21:58 11/12/17 21:58 11/13/17 02:01 11/13/17 02:01 11/13/17 02:01 - Laboratory Result Diagrams: 11/12/17 23:12 11/12/17 23:12 Laboratory results interpreted by me: 11/12/17 11/12/17 11/13/17 23:12 23:12 01:10 RBC 3.80 L Hgb 11.3 L Hct 34.1 L Potassium 5.1 H BUN 43 H Creatinine 1.53 H Est GFR ( Amer) 54 L Est GFR (Non-Af Amer) 45 L Urine Protein >=500 H - EKG Interpretation by Me Additional EKG results interpreted by me: 11/12/17 22:52 EKG is reviewed and interpreted by me. EKG shows sinus rhythm with a rate of [address] segment elevation or depression. No ischemic T wave inversions. ND bolus within normal range. QRS duration and QT intervals are prolonged. Old EKG for comparison is from December 20, 2016. Discharge - Discharge Clinical Impression: Dizziness Dyspnea Qualifiers: Dyspnea type: unspecified Qualified Code(s): R06.00 - Dyspnea, unspecified Condition: Good Disposition: HOME, SELF-CARE Additional Instructions: Please follow up with your doctor this week for reevaluation. Please return to the ER if you have increasing weakness, worsening difficulty breathing, any chest pain, fevers, or if you feel that you are worsening in any way. I have prescribed a medication called Meclizine. take this if you develop dizziness consistent with a spinning sensation. Prescriptions: Meclizine HCl 25 mg PO Q8 PRN #20 tablet PRN Reason: Dizziness Referrals: EDY NICOLE DO [Primary Care Provider] - 11/15/17
[2017-11-12 23:34] LABS: ABSOLUTE BASOPHILS # (AUTO) 0.1 10^3/uL (0.0-0.2); ABSOLUTE EOSINOPHILS # (AUTO) 0.2 10^3/uL (0.0-0.6); ABSOLUTE LYMPHOCYTES (AUTO) 2.6 10^3/uL (0.5-4.7); ABSOLUTE MONOCYTES (AUTO) 0.8 10^3/uL (0.1-1.4); ABSOLUTE NEUT (AUTO) 6.4 10^3/uL (1.7-8.2); BASOPHILS % (AUTO) 0.7 % (0-2); HEMATOCRIT 34.1 % (37.9-51.0); HEMOGLOBIN 11.3 g/dL (13.5-17.0); LYMPHOCYTES % (AUTO) 26.2 % (13-45); MEAN CORPUSCULAR HEMOGLOBIN 29.9 pg (27.0-33.4); MEAN CORPUSCULAR HGB CONC 33.3 g/dL (32.0-36.0); MEAN CORPUSCULAR VOLUME 90 fl (80-97); MONOCYTES % (AUTO) 7.7 % (3-13); PLATELET COUNT 334 10^3/uL (150-450); SEGMENTED NEUTROPHILS % (AUTO) 63.4 % (42-78); TOTAL CELLS COUNTED % (AUTO) 100 %; WHITE BLOOD COUNT 10.1 10^3/uL (4.0-10.5)
[2017-11-12 23:42] LABS: ALANINE AMINOTRANSFERASE 22 U/L (21-72); ALBUMIN 4.3 g/dL (3.5-5.0); ALKALINE PHOSPHATASE 60 U/L (38-126); ANION GAP 13 (5-19); ASPARTATE AMINO TRANSFERASE 20 U/L (17-59); BILIRUBIN,DIRECT 0.3 mg/dL (0.0-0.4); BILIRUBIN,TOTAL 0.3 mg/dL (0.2-1.3); BLOOD UREA NITROGEN 43 mg/dL (7-20); CALCIUM 10.1 mg/dL (8.4-10.2); CARBON DIOXIDE 25 mmol/L (22-30); CHLORIDE 103 mmol/L (98-107); GLUCOSE 98 mg/dL (75-110); POTASSIUM 5.1 mmol/L (3.6-5.0); SODIUM 141.4 mmol/L (137-145); TOTAL PROTEIN 7.5 g/dL (6.3-8.2)
--- NOTE | 2017-11-13 00:35 | RADIOLOGY REPORT (SQ) ---
PROCEDURE: XR CHEST 1 VIEW HISTORY: dyspnea COMPARISON: 03/26/2017 TECHNIQUE: The study was done on 11/13/2017 at 12:21 AM Single projection of the chest was done. FINDINGS: Underlying changes of COPD are noted . There are no discrete airspace infiltrates, pneumothoraces or pleural effusions. The pulmonary vascularity is normal. The cardiomediastinal silhouette is unremarkable for patient's age and sex. IMPRESSION: There is no acute pleural-parenchymal process seen in the imaged lung kinney. Location of Interpretation: [facility]
--- NOTE | 2017-11-13 00:39 | RADIOLOGY REPORT (SQ) ---
CLINICAL DATA: 71-year-old male with intermittent headaches. TECHNICAL DATA: Multiple axial CT images of the brain were performed followed by sagittal and coronal reconstructed images. The CT study is performed according to ALARA (as low as reasonably achievable) or ALARA/IMAGE GENTLY, with automatic adjustment of mA and/or kV according to patient size. Comparisons: Prior head CT performed on 12/20/2016.. FINDINGS: There is no evidence of mass, acute mass effect or midline shift. There are no acute extra-axial fluid collections. There is no evidence of acute intracranial hemorrhage. The cerebral sulci and ventricles are prominent consistent with mild to moderate cerebral volume loss. There are scattered patchy areas of decreased subcortical and periventricular attenuation most consistent with mild chronic microangiopathy.. There are old bilateral lacunar infarcts.. There is no significant mucosal thickening of the paranasal sinuses. There are postsurgical changes of the right mastoid cavity consistent with a mastoidectomy. There is incomplete pneumatization of the left mastoid air cells. The orbital contents are grossly unremarkable. No acute osseous abnormalities are identified. Soft tissues. IMPRESSION: 1. There is no evidence of acute intracranial pathology or significant change since the prior study. 2. Mild to moderate cerebral atrophy with findings compatible with chronic microangiopathy and old bilateral lacunar infarcts. 3. Prior right mastoidectomy.
[2017-11-13 01:27] LABS: APPEARANCE,URINE CLEAR; BILIRUBIN,URINE NEGATIVE (NEGATIVE); COLOR,URINE YELLOW; GLUCOSE, URINE NEGATIVE (NEGATIVE); KETONES,URINE NEGATIVE (NEGATIVE); LEUKOCYTE ESTERASE,URINE NEGATIVE (NEGATIVE); NITRITE,URINE NEGATIVE (NEGATIVE); PROTEIN,URINE >=500 mg/dL (NEGATIVE); URINE SPECIFIC GRAVITY 1.026; UROBILINOGEN,URINE NEGATIVE mg/dL (<2.0)
[2017-11-13] MEDS ORDERED: NORMAL SALINE 500 ML IV ONE (01:38)
[2017-11-13 02:49] VITALS: BP 146/81
--- NOTE | 2017-11-13 11:11 | EKG REPORT ---
SEVERITY:- ABNORMAL ECG - SINUS RHYTHM NONSPECIFIC INTRAVENTRICULAR CONDUCTION DELAY INFERIOR INFARCT, AGE INDETERMINATE : Confirmed by: Pavel Alcocer 13-Nov-2017 11:11:07
== END 2017-11-13 03:02 | disposition home or self-care (01) ==
LOC: ER 21:45
DX: R42 Dizziness and giddiness (principal); R06.00 Dyspnea, unspecified; R35.0 Frequency of micturition; R53.83 Other fatigue; I25.10 Atherosclerotic heart disease of native coronary artery without angina pectoris; I25.2 Old myocardial infarction; E78.00 Pure hypercholesterolemia, unspecified; I10 Essential (primary) hypertension
CPT/HCPCS: 36415; 70450; 71045; 80053; 81001; 84484; 85025; 93005; 93010; 96360; 99285

== ENCOUNTER 2019-03-26 06:45 | Inpatient (IN) | payer MEDICARE, BC ==
[2019-03-26 08:23] LABS: APPEARANCE,URINE CLEAR; BILIRUBIN,URINE NEGATIVE (NEGATIVE); COLOR,URINE YELLOW; GLUCOSE, URINE >=500 mg/dL (NEGATIVE); KETONES,URINE TRACE mg/dL (NEGATIVE); LEUKOCYTE ESTERASE,URINE NEGATIVE (NEGATIVE); NITRITE,URINE NEGATIVE (NEGATIVE); PROTEIN,URINE >=500 mg/dL (NEGATIVE); URINE SPECIFIC GRAVITY 1.014; UROBILINOGEN,URINE NEGATIVE mg/dL (<2.0)
[2019-03-26 08:31] LABS: ABSOLUTE BASOPHILS # (AUTO) 0.1 10^3/uL (0.0-0.2); ABSOLUTE LYMPHOCYTES (AUTO) 1.1 10^3/uL (0.5-4.7); ABSOLUTE MONOCYTES (AUTO) 0.8 10^3/uL (0.1-1.4); ABSOLUTE NEUT (AUTO) 16.3 10^3/uL (1.7-8.2); BASOPHILS % (AUTO) 0.3 % (0-2); EOSINOPHILS % (AUTO) 0.1 % (0-6); HEMATOCRIT 33.7 % (37.9-51.0); LYMPHOCYTES % (AUTO) 6.2 % (13-45); MEAN CORPUSCULAR HGB CONC 32.5 g/dL (32.0-36.0); MEAN CORPUSCULAR VOLUME 89 fl (80-97); MONOCYTES % (AUTO) 4.3 % (3-13); PLATELET COUNT 375 10^3/uL (150-450); RED BLOOD COUNT 3.78 10^6/uL (4.35-5.55); SEGMENTED NEUTROPHILS % (AUTO) 89.1 % (42-78); TOTAL CELLS COUNTED % (AUTO) 100 %; WHITE BLOOD COUNT 18.3 10^3/uL (4.0-10.5)
[2019-03-26 08:39] LABS: INTERNATIONAL RATION (INR) 0.99; PROTHROMBIN TIME 13.1 SEC (11.4-15.4)
[2019-03-26 08:56] LABS: ALBUMIN 4.3 g/dL (3.5-5.0); ALKALINE PHOSPHATASE 66 U/L (38-126); ANION GAP 11 (5-19); ASPARTATE AMINO TRANSFERASE 27 U/L (17-59); BILIRUBIN,TOTAL 0.4 mg/dL (0.2-1.3); BLOOD UREA NITROGEN 23 mg/dL (7-20); CALCIUM 9.6 mg/dL (8.4-10.2); CARBON DIOXIDE 22 mmol/L (22-30); CHLORIDE 105 mmol/L (98-107); CREATINE KINASE 127 U/L (55-170); GLUCOSE 240 mg/dL (75-110); TOTAL PROTEIN 7.6 g/dL (6.3-8.2)
[2019-03-26 09:00] LABS: POTASSIUM 6.1 mmol/L (3.6-5.0)
--- NOTE | 2019-03-26 09:32 | RADIOLOGY REPORT (SQ) ---
EXAM DESCRIPTION: HIP RIGHT AP/LATERAL COMPLETED DATE/TIME: 03/26/2019 9:21 am REASON FOR STUDY: fall and on blood thinners COMPARISON: None. NUMBER OF VIEWS: Two views. TECHNIQUE: AP pelvis and additional frog-leg view of the right hip. LIMITATIONS: None. FINDINGS: MINERALIZATION: Normal. RIGHT HIP: Mild irregularity of the femoral neck. LEFT HIP: No fracture or dislocation. No worrisome bone lesions. PUBIS AND ISCHIUM: No fracture. PELVIS: No fracture. SACRUM: No fracture or dislocation. No worrisome bone lesions. LOWER LUMBAR SPINE: No fracture or dislocation. No worrisome bone lesions. No significant disc disea se. SOFT TISSUES: Numerous metallic fragments in the soft tissues of the upper right leg. OTHER: No other significant finding. IMPRESSION: MILD IRREGULARITY OF THE RIGHT FEMORAL NECK, SUSPICIOUS FOR MINIMALLY DISPLACED FRACTURE . TECHNICAL DOCUMENTATION: JOB ID: [id number] 2011 [employer]- All Rights Reserved Reading location - IP/workstation name: [email or web address]
--- NOTE | 2019-03-26 10:01 | RADIOLOGY REPORT (SQ) ---
EXAM DESCRIPTION: SHOULDER RIGHT 2 OR MORE VIEWS COMPLETED DATE/TIME: 03/26/2019 9:52 am REASON FOR STUDY: fall and on blood thinners COMPARISON: None. NUMBER OF VIEWS: Three views. TECHNIQUE: Internal rotation, external rotation, and Y view images acquired of the right shoulder. LIMITATIONS: None. FINDINGS: MINERALIZATION: Normal. BONES: No acute fracture. No worrisome bone lesions. JOINTS: No dislocation. VISUALIZED LUNGS AND RIBS: No pneumothorax. No rib fracture. SOFT TISSUES: No radiopaque foreign body. OTHER: No other significant finding. IMPRESSION: NEGATIVE STUDY OF THE RIGHT SHOULDER. NO RADIOGRAPHIC EVIDENCE OF ACUTE INJURY. TECHNICAL DOCUMENTATION: JOB ID: [id number] 2010 [employer]- All Rights Reserved Reading location - IP/workstation name: [email or web address]
[2019-03-26] MEDS ORDERED: NORMAL SALINE 1000 ML 500 ML IV ONE (11:41)
[2019-03-26] MEDS ORDERED: FENTANYL CITRATE INJ/PF 100 MCG/2 ML AMPUL IV ONE ×2 (11:42→16:00)
--- NOTE | 2019-03-26 12:58 | RADIOLOGY REPORT (SQ) ---
EXAM DESCRIPTION: CT CERVICAL SPINE WITHOUT COMPLETED DATE/TIME: 03/26/2019 12:28 pm REASON FOR STUDY: fall, neck pain COMPARISON: None. TECHNIQUE: Axial images acquired through the cervical spine without intravenous contrast. Images re viewed with lung, soft tissue and bone windows. Reconstructed coronal and sagittal MPR images review ed. Images stored on PACS. All CT scanners at this facility use dose modulation, iterative reconstruction, and/or weight based d osing when appropriate to reduce radiation dose to as low as reasonably achievable (ALARA). [facility]: Dose Right [facility]: CareDose [facility]: Dose Right [facility]: Teradose 4D [facility]: Phraxis RADIATION DOSE: CT Rad equipment meets quality standard of care and radiation dose reduction techniq ues were employed. CTDIvol: 21.7 mGy. DLP: 430 mGy-cm. mGy. LIMITATIONS: None. FINDINGS: ALIGNMENT: Anatomic. MINERALIZATION: Normal. VERTEBRAL BODIES: No fractures or dislocation. DISCS: Multilevel disc space narrowing with osteophytes. FACETS, LATERAL MASSES, POSTERIOR ELEMENTS: Facet arthropathy. No fractures. No dislocation. No ac niraj findings. HARDWARE: None in the spine. VISUALIZED RIBS: No fractures. LUNG APICES AND SOFT TISSUES: No significant or acute findings. OTHER: No other significant finding. IMPRESSION: CHRONIC DEGENERATIVE CHANGES. NO ACUTE FINDINGS. TECHNICAL DOCUMENTATION: JOB ID: [id number] Quality ID # [id number]: Final reports with documentation of one or more dose reduction techniques (e.g., Au tomated exposure control, adjustment of the mA and/or kV according to patient size, use of iterative reconstruction technique) 2010 [employer]- All Rights Reserved Reading location - IP/workstation name: [email or web address]
--- NOTE | 2019-03-26 13:01 | RADIOLOGY REPORT (SQ) ---
EXAM DESCRIPTION: CT RT LOWER EXTREMITY WITHOUT COMPLETED DATE/TIME: 03/26/2019 12:28 pm REASON FOR STUDY: r/o hip fx COMPARISON: X-ray dated 03/26/2019. TECHNIQUE: CT scan of the right hip performed without intravenous or oral contrast. Images reviewed with soft tissue and bone windows. Reconstructed coronal and sagittal MPR images reviewed. All erika ges stored on PACS. All CT scanners at this facility use dose modulation, iterative reconstruction, and/or weight based d osing when appropriate to reduce radiation dose to as low as reasonably achievable (ALARA). [facility]: Dose Right [facility]: CareDose [facility]: Dose Right [facility]: Teradose 4D [facility]: [employer] RADIATION DOSE: CT Rad equipment meets quality standard of care and radiation dose reduction techniq ues were employed. CTDIvol: 4.1 mGy. DLP: 116 mGy-cm. mGy. LIMITATIONS: None. FINDINGS: VISUALIZED PELVIC BONES: No acute fracture. No worrisome bone lesions. RIGHT HIP: Impacted fracture of the femoral neck. PELVIC SOFT TISSUES: No significant findings. EXTRAPELVIC SOFT TISSUES: No significant findings. OTHER: No other significant finding. IMPRESSION: IMPACTED FRACTURE OF THE RIGHT FEMORAL NECK. TECHNICAL DOCUMENTATION: JOB ID: [id number] Quality ID # [id number]: Final reports with documentation of one or more dose reduction techniques (e.g., Au tomated exposure control, adjustment of the mA and/or kV according to patient size, use of iterative reconstruction technique) 2010 [employer]- All Rights Reserved Reading location - IP/workstation name: [email or web address]
--- NOTE | 2019-03-26 13:29 | EKG REPORT ---
SEVERITY:- ABNORMAL ECG - SINUS RHYTHM NONSPECIFIC INTRAVENTRICULAR CONDUCTION DELAY PROBABLE INFERIOR INFARCT, AGE INDETERMINATE : Confirmed by: Vijay Galaviz MD 26-Mar-2019 13:28:38
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
[2019-03-26] MEDS ORDERED: ONDANSETRON HCL INJ/PF 4 MG/2 ML SDV IV PRN (15:18)
[2019-03-26] MEDS ORDERED: GLUCAGON,HUMAN RECOMB 1 MG INJ SUBCUT PRN (15:18)
[2019-03-26] MEDS ORDERED: DEXTROSE 40% GEL 15 GM TUBE PO PRN ×2 (15:18)
[2019-03-26] MEDS ORDERED: DEXTROSE 50%-WATER 25 GM/50 ML DISP.SYRIN IV PRN ×2 (15:18)
[2019-03-26] MEDS ORDERED: MAG HYDROX/AL HYDROX/SIMETH SUSP 30 ML UDCUP PO PRN (15:18)
[2019-03-26] MEDS ORDERED: PROMETHAZINE HCL INJ 25 MG/1 ML VIAL IV PRN (15:18)
--- NOTE | 2019-03-26 15:39 | RADIOLOGY REPORT (SQ) ---
EXAM DESCRIPTION: CHEST SINGLE VIEW COMPLETED DATE/TIME: 03/26/2019 2:31 pm REASON FOR STUDY: Fall, right rib pain COMPARISON: 03/26/2017 EXAM PARAMETERS: NUMBER OF VIEWS: One view. TECHNIQUE: Single frontal radiographic view of the chest acquired. RADIATION DOSE: NA LIMITATIONS: None. FINDINGS: LUNGS AND PLEURA: No opacities, masses or pneumothorax. No pleural effusion. MEDIASTINUM AND HILAR STRUCTURES: No masses. Contour normal. HEART AND VASCULAR STRUCTURES: The heart size is borderline. There is no pulmonary edema. BONES: No acute findings. HARDWARE: None in the chest. OTHER: No other significant finding. IMPRESSION: Borderline cardiomegaly without pulmonary edema. TECHNICAL DOCUMENTATION: JOB ID: [id number] 2010 [employer]- All Rights Reserved Reading location - IP/workstation name: [email or web address]
[2019-03-26 16:34] LABS: ANION GAP 12 (5-19); BLOOD UREA NITROGEN 21 mg/dL (7-20); CALCIUM 9.4 mg/dL (8.4-10.2); CARBON DIOXIDE 21 mmol/L (22-30); CHLORIDE 102 mmol/L (98-107); GLUCOSE 203 mg/dL (75-110)
[2019-03-26] MEDS: INSULIN LISPRO 100 UNIT/ML 3 ML VIAL SUBCUT SCH ×2 (16:59→21:19)
[2019-03-26] MEDS ORDERED: FUROSEMIDE INJ/PF 20 MG/2 ML SDV IV ONE (17:07)
[2019-03-26] MEDS ORDERED: LACTULOSE SYRUP 20 GM/30 ML UDCUP PO ONE (17:07)
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
[2019-03-26] MEDS: NORMAL SALINE 1000 ML 1,000 ML IV PRN (18:41)
[2019-03-26] MEDS: PATIROMER 8.4 GM SUSP PACKET PO SCH (19:47)
[2019-03-26] MEDS: HEPARIN SOD (PORCINE) 5,000 UNIT/ML 1 ML VIAL SUBCUT SCH (21:14)
[2019-03-26] MEDS ORDERED: FAMOTIDINE 20 MG TABLET PO SCH (22:00)
[2019-03-26] MEDS: ACETAMINOPHEN 325 MG TABLET PO PRN (22:12)
[2019-03-27] MEDS: MORPHINE SULFATE 10 MG/ML INJ IV PRN ×3 (02:36→22:14)
[2019-03-27] MEDS: NORMAL SALINE 1000 ML 1,000 ML IV PRN (04:45)
[2019-03-27] MEDS: HEPARIN SOD (PORCINE) 5,000 UNIT/ML 1 ML VIAL SUBCUT SCH ×2 (05:10→15:59)
[2019-03-27] MEDS: PANTOPRAZOLE SODIUM 40 MG TABLET.DR PO SCH (05:10)
[2019-03-27 05:40] LABS: HEMOGLOBIN 10.5 g/dL (13.5-17.0); MEAN CORPUSCULAR HEMOGLOBIN 29.1 pg (27.0-33.4); MEAN CORPUSCULAR HGB CONC 32.7 g/dL (32.0-36.0); MEAN CORPUSCULAR VOLUME 89 fl (80-97); PLATELET COUNT 355 10^3/uL (150-450); RED CELL DISTRIBUTION WIDTH 14.1 % (11.5-14.0); WHITE BLOOD COUNT 14.2 10^3/uL (4.0-10.5)
[2019-03-27 05:57] LABS: ANION GAP 10 (5-19); BLOOD UREA NITROGEN 18 mg/dL (7-20); CALCIUM 9.3 mg/dL (8.4-10.2); CARBON DIOXIDE 21 mmol/L (22-30); CHLORIDE 105 mmol/L (98-107); GLUCOSE 186 mg/dL (75-110); POTASSIUM 5.2 mmol/L (3.6-5.0)
[2019-03-27] MEDS ORDERED: (PENDING PHARMACY ID) (Sertraline Hcl [Zoloft] 25 MG) PO SCH (10:00)
[2019-03-27] MEDS: INSULIN LISPRO 100 UNIT/ML 3 ML VIAL SUBCUT SCH ×4 (10:42→22:15)
[2019-03-27] MEDS: DOCUSATE SODIUM 100 MG CAPSULE PO SCH (10:43)
--- NOTE | 2019-03-27 10:48 | XCELERA REPORT ---
[address] [address] Transthoracic Echocardiogram Report Name: FLORENTINO HAMEED JR, JR Age: 73 yrs Gender: Male : 1945 Patient Status: Inpatient Patient Location: [facility]^A Study Date: 03/26/2019 06:46 PM History: CHF Pre-op PAH Height: 72 in Weight: 169 lb BSA: 2.0 m2 Procedure: A complete two-dimensional transthoracic echocardiogram was performed (2D, M-mode, spectral and color flow Doppler). The study was technically difficult with many images being suboptimal in quality. Reason For Study: CHF, Pulm HTN. (Pre-Op) Previous Evaluation: No previous studies were available. History: CHF. Ordering Physician: SMITA SCHUSTER Performed By: Nancy Negrete Interpretation Summary The study was technically difficult with many images being suboptimal in quality. Left ventricular systolic function is mildly reduced. The Ejection Fraction estimate is 40-45% The right ventricle is normal in size and function. There is a trace amount of mitral regurgitation There is no aortic valve stenosis There is a mild amount of tricuspid regurgitation There is mild pulmonary hypertension by echo There is no pericardial effusion. MMode/2D Measurements & Calculations RVDd: 2.4 cm LVIDd: 5.4 cm FS: 25.8 % Ao root diam: IVSd: 1.0 cm LVIDs: 4.0 cm EDV(Teich): 2.3 cm LVPWd: 1.2 cm 142.7 ml Ao root area: ESV(Teich): 4.2 cm2 70.9 ml LA dimension: EF(Teich): 50.3 % 4.4 cm LVLd ap4: 8.7 cm SV(MOD-sp4): 60.0 ml EDV(MOD-sp4): 114.0 ml LVLs ap4: 7.5 cm ESV(MOD-sp4): 54.0 ml EF(MOD-sp4): 52.6 % Doppler Measurements & Calculations MV E max leslie: MV P1/2t max leslie: Ao V2 max: LV V1 max P.2 cm/sec 71.2 cm/sec 152.0 cm/sec 3.2 mmHg MV A max leslie: MV P1/2t: 40.2 msec Ao max PG: LV V1 max: 119.0 cm/sec MVA(P1/2t): 5.5 cm2 9.2 mmHg 89.9 cm/sec MV E/A: 0.45 MV dec slope: 518.4 cm/sec2 MV dec time: 0.13 sec PA V2 max: PI end-d leslie: TR max leslie: MV P1/2t-pr_phl: 110.2 cm/sec 122.7 cm/sec 283.7 cm/sec 40.2 msec PA max P.9 mmHg TR max P.2 mmHg Left Ventricle The left ventricle is grossly normal size. There is mild concentric left ventricular hypertrophy. Left ventricular systolic function is mildly reduced. The Ejection Fraction estimate is 40-45%. Doppler measurements suggest impaired left ventricular relaxation, which is associated with grade I/IV or mild diastolic dysfunction. Regional wall motion abnormalities cannot be excluded due to limited visualization. Right Ventricle The right ventricle is normal in size and function. Atria The left atrium is mildly dilated. Mitral Valve The mitral valve is grossly normal. There is a trace amount of mitral regurgitation. Aortic Valve The aortic valve opens well. There is no aortic valve stenosis. No aortic regurgitation is present. Tricuspid Valve The tricuspid valve is normal in structure and function. There is a mild amount of tricuspid regurgitation. Right ventricular systolic pressure is estimated to be elevated at 40-50mmHg. There is mild pulmonary hypertension by echo. Pulmonic Valve The pulmonic valve is not well visualized. There is a mild amount of pulmonic regurgitation. Great Vessels The aortic root is normal size. The inferior vena cava appeared normal and decreased > 50% with respiration (RAP 5-10 mmHg). Effusions There is no pericardial effusion. : SMITA SCHUSTER Anil
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
--- NOTE | 2019-03-27 14:49 | PDOC PROGRESS REPORT ---
Subjective Progress Note for:: 03/27/19 Subjective:: FLORENTINO HAMEED JR is a 73 year old male with a past medical history of hypertension, non-STEMI, CHF, pulmonary hypertension, hyperlipidemia, DM 2, TIA, weakness with frequent falls at home who was admitted 03/26/2019 with right hip fracture. Patient was seen on morning rounds. He is found resting in bed, comfortably, on room air. He reports that his pain is well controlled with pain medication regiment; he is actually pain-free if he is now moving. Otherwise, he reports fatigue; did not sleep well due to pain in hospital environment. He has no other complaints today. He denies fever, chills, chest pain, palpitations, dyspnea, orthopnea, cough, abdominal pain, nausea vomiting and diarrhea. He has no questions or concerns at this time. No concerns per nursing. Reason For Visit: RT HIP FRACTURE Physical Exam Vital Signs: Temp Pulse Resp BP Pulse Ox 98.2 F 82 16 164/68 H 85 L 03/27/19 11:22 03/27/19 14:08 03/27/19 14:08 03/27/19 11:22 03/27/19 14:08 Intake & Output 03/26/19 03/27/19 03/28/19 06:59 06:59 06:59 Intake Total 1770 Output Total 975 150 Balance 795 -150 Weight 82 kg 82 kg General appearance: PRESENT: no acute distress, cooperative, well-developed, well-nourished Head exam: PRESENT: atraumatic, normocephalic Eye exam: PRESENT: conjunctiva pink, EOMI, PERRLA. ABSENT: scleral icterus Mouth exam: PRESENT: moist, tongue midline Respiratory exam: PRESENT: clear to auscultation blank, symmetrical, unlabored. ABSENT: rales, rhonchi, wheezes Cardiovascular exam: PRESENT: RRR, +S1, +S2. ABSENT: diastolic murmur, rubs, systolic murmur Pulses: PRESENT: normal dorsalis pedis pul Vascular exam: PRESENT: normal capillary refill GI/Abdominal exam: PRESENT: normal bowel sounds, soft. ABSENT: distended, guarding, mass, organolmegaly, rebound, tenderness Rectal exam: PRESENT: deferred Extremities exam: PRESENT: tenderness - RLE. ABSENT: calf tenderness, clubbing, full ROM, pedal edema Neurological exam: PRESENT: alert, awake, oriented to person, oriented to place, oriented to time, oriented to situation, CN II-XII grossly intact. ABSENT: motor sensory deficit Psychiatric exam: PRESENT: appropriate affect, normal mood. ABSENT: homicidal ideation, suicidal ideation Skin exam: PRESENT: dry, intact, warm. ABSENT: cyanosis, rash Results Laboratory Results: 03/27/19 04:37 03/27/19 04:37 03/26/19 03/27/19 03/27/19 16:05 04:37 04:37 WBC 14.2 H RBC 3.60 L Hgb 10.5 L Hct 32.0 L MCV 89 MCH 29.1 MCHC 32.7 RDW 14.1 H Plt Count 355 Sodium 135.4 L 136.0 L Potassium 6.0 H* 5.2 H Chloride 102 105 Carbon Dioxide 21 L 21 L Anion Gap 12 10 BUN 21 H 18 Creatinine 1.14 1.19 Est GFR ( Amer) > 60 > 60 Glucose 203 H 186 H Calcium 9.4 9.3 03/26/19 03/26/19 07:06 07:06 Creatine Kinase 127 Troponin I < 0.012 Impressions: Hip/Pelvis X-Ray 03/26/19 00:00 IMPRESSION: MILD IRREGULARITY OF THE RIGHT FEMORAL NECK, SUSPICIOUS FOR MINIMALLY DISPLACED FRACTURE. Shoulder X-Ray 03/26/19 00:00 IMPRESSION: NEGATIVE STUDY OF THE RIGHT SHOULDER. NO RADIOGRAPHIC EVIDENCE OF ACUTE INJURY. Cervical Spine CT 03/26/19 11:43 IMPRESSION: CHRONIC DEGENERATIVE CHANGES. NO ACUTE FINDINGS. Lower Extremity CT 03/26/19 11:43 IMPRESSION: IMPACTED FRACTURE OF THE RIGHT FEMORAL NECK. Chest X-Ray 03/26/19 14:13 IMPRESSION: Borderline cardiomegaly without pulmonary edema. Assessment and Plan - Diagnosis (1) Hip fracture, right Qualifiers: Encounter type: initial encounter Is this a current diagnosis for this admission?: Yes Plan: Following mechanical fall at home. CT imaging reveals impacted right femoral hip fracture. Patient is admitted to the medical floor. Currently n.p.o. for planned surgical repair today Analgesics as needed. Orthopedics is consulted; appreciate Dr. Kate's assistance. Postoperative prophylaxis per orthopedics expertise. Holding his daily aspirin and Plavix therapy. Patient is a home ambulator utilizing a walker. He reports he is able to walk from one end of the house to the other without dyspnea, palpitations, or chest pain. He does occasionally have to rest but states this is due to frequent loss of balance. Echocardiogram revealed LVEF 40 to 45% with mild pulmonary hypertension. On exam today, the patient appears to be well compensated. There are no immediately modifiable risk factors that would prohibit operative intervention at this time. (2) CHF (congestive heart failure) Qualifiers: Heart failure type: combined systolic and diastolic Heart failure chronicity: chronic Qualified Code(s): I50.42 - Chronic combined systolic (congestive) and diastolic (congestive) heart failure Is this a current diagnosis for this admission?: Yes Plan: Not in exacerbation. CXR is negative for pulmonary edema. Echocardiogram revealed LVEF 40 to 45% with mild pulmonary hypertension. Lung sounds are clear. Maintaining oxygen saturations at rest on room air. He does not have any dependent edema. We will continue the patient's home medication regiment of isosorbide, losartan, Toprol-XL, amlodipine. Holding home dose aspirin and Plavix due to surgical needs. Daily weights, strict I&O's. (3) Diabetes mellitus type 2 in nonobese Is this a current diagnosis for this admission?: Yes Plan: Holding oral antihyperglycemic medications. Patient is placed on Accu-Cheks before meals and at bedtime with Humalog for sliding scale coverage. Hypoglycemia protocol in place. (4) Hypertension Qualifiers: Hypertension type: essential hypertension Qualified Code(s): I10 - Essential (primary) hypertension Is this a current diagnosis for this admission?: Yes Plan: Continuing home medication regiment. (5) Hyperkalemia Is this a current diagnosis for this admission?: Yes Plan: Possibly related to prolonged time on the floor after the patient's fall. Improved; 6.1-> 6.0-> 5.2 Continue IV fluids He received 1 time dose of IV furosemide, veltassa, and lactulose yesterday. Follow-up chemistry in the morning. EKG is reviewed; he is not found to have peaked T waves. We will continue to monitor on telemetry. - Time Time Spent with patient: 25-34 minutes Medications reviewed and adjusted accordingly: Yes Anticipated discharge: SNF Within: within 72 hours
[2019-03-27] MEDS ORDERED: BUPIVACAINE HCL 0.5 % INJ/PF 30 ML SDV ONE (15:08)
[2019-03-27] MEDS ORDERED: ONDANSETRON HCL INJ/PF 4 MG/2 ML SDV ONE (15:25)
[2019-03-27] MEDS ORDERED: LIDOCAINE 2% INJ-PF (20 MG/ML) 10 ML AMPUL ONE (15:25)
[2019-03-27] MEDS ORDERED: PROPOFOL INJ 200 MG/20 ML VIAL IV ONE (15:26)
[2019-03-27] MEDS: LOSARTAN POTASSIUM 25 MG TABLET PO SCH (15:51)
[2019-03-27] MEDS: TAMSULOSIN HCL 0.4 MG CAP.SR.24H PO SCH (15:52)
[2019-03-27] MEDS: METOPROLOL SUCCINATE 25 MG TAB.SR.24H PO SCH (15:52)
[2019-03-27] MEDS: AMLODIPINE BESYLATE 5 MG TABLET PO SCH (15:52)
[2019-03-27] MEDS: ISOSORBIDE MONONITRATE 60 MG TAB.ER.24H PO SCH (15:52)
[2019-03-27] MEDS: CETIRIZINE 10 MG TABLET PO SCH (15:53)
[2019-03-27] MEDS: SERTRALINE HCL 50 MG TABLET PO SCH (15:53)
[2019-03-27] MEDS ORDERED: CEFAZOLIN INJ 1 GM VIAL ONE (16:16)
[2019-03-27] MEDS ORDERED: DIPHENHYDRAMINE HCL 50 MG/ML VIAL IV PRN (17:01)
[2019-03-27] MEDS ORDERED: ONDANSETRON HCL INJ/PF 4 MG/2 ML SDV IV PRN (17:01)
[2019-03-27] MEDS ORDERED: OXYCODONE-ACETAMINOPHEN 5-325 MG TABLET PO PRN ×2 (17:01)
[2019-03-27] MEDS ORDERED: FENTANYL CITRATE INJ/PF 100 MCG/2 ML AMPUL IV PRN ×2 (17:01)
[2019-03-27] MEDS ORDERED: MORPHINE SULFATE 10 MG/ML INJ IV PRN (17:01)
[2019-03-27] MEDS ORDERED: ESMOLOL HCL INJ/PF 100 MG/10 ML SDV IV ONE (17:19)
--- NOTE | 2019-03-27 17:36 | Operative Report ---
Operative Report DATE OF SURGERY: 03/27/19 PREOPERATIVE DIAGNOSIS: Valgus impacted right femoral neck fracture POSTOPERATIVE DIAGNOSIS: Same OPERATION: Closed reduction percutaneous pinning right femoral neck fracture SURGEON: PATRICK MCKEON ANESTHESIA: Spinal COMPLICATIONS: None ESTIMATED BLOOD LOSS: Minimal PROCEDURE: Indication for above procedure: 73-year-old male who sustained a fall onto his right hip. Patient was later found by the family and brought to the emergency room. CT and radiographs were obtained demonstrating impacted femoral neck fracture. At that point decision was made to proceed with operative intervention. Risks and benefits were explained patient verbalized understanding consented for surgical procedure. Procedure In Detail: Patient was seen and evaluated in the preoperative holding area. The RIGHT lower extremity was initialized and marked. Patient received 2g of Ancef IV for bacterial prophylaxis. Patient was taken back to the operative room where transferred to the operative table and placed under general anesthesia. Once they were adequately anesthetized the right lower extremity is placed in a flexed adducted external rotated position and carefully padded. The left lower extremity was placed in traction. A surgical team debriefing was performed ensuring all instrumentation was available, the surgical procedure was discussed with possible concerns reviewed. Traction, adduction and internal rotation of the lower extremity was done C-arm fluoroscopy was used confirming anatomic red uction of the femoral neck fracture. The lower extremity was prepped with ChloraPrep and draped in a sterile fashion. A timeout was done identifying correct patient, procedure and extremity everyone in attendance agree with this and verbalized no concerns. Surgical incision was made careful dissection was done through the fascia down to the lateral cortex of the femur. With the use of a threaded K wire I drilled along the more superior anterior aspect of the neck crossing the fracture line. Lateral projection was then done confirming an anterior superior placed wire. I then used the aiming device and placed a second wire posterior and superior and lastly a wire was placed along the inferior aspect of the neck along the calcar. This gave me a inverse triangular configuration. AP and lateral projections were done confirming appropriate placement of my guidewires. I then placed 3 partially-threaded 6.5 mm cannulated screws lengths being in 95, 100, 110 I got adequate fixation across the fracture into the subchondral bone. AP lateral radiographs were done demonstrating no evidence of interarticular screw penetration. Then under live fluoroscopy the hip was ranged to confirm there is no evidence of intra-articular penetration. I then copiously irrigated the wound with normal saline. A peripheral vasculature was carefully coagulated. The deep fascia was closed with interrupted 0 Vicryl suture. Skin was closed with a running subcuticular 3-0 Monocryl suture which was reinforced with Dermabond and Steri-Strips. A OpSite dressing was then placed. Postoperative plan: Patient will follow in the office in 10-14 days which point we will obtain radiographs. Patient will begin 50% WB right lower extremity postoperatively. Patient will be started on Lovenox postoperative day begin Plavix immediately additional DVT prophylaxis as per hospitalist discretion
[2019-03-27] MEDS: FENTANYL CITRATE INJ/PF 100 MCG/2 ML AMPUL IV PRN ×2 (17:47→18:02)
[2019-03-27] MEDS ORDERED: FENTANYL CITRATE INJ/PF 100 MCG/2 ML AMPUL ONE (17:50)
[2019-03-27] MEDS ORDERED: ACETAMINOPHEN 1,000 MG/100 ML RTUPB IV ONE (17:50)
[2019-03-27] MEDS: PATIROMER 8.4 GM SUSP PACKET PO SCH (22:32)
[2019-03-28] MEDS: MORPHINE SULFATE 10 MG/ML INJ IV PRN (04:28)
[2019-03-28] MEDS: NORMAL SALINE 1000 ML 1,000 ML IV PRN ×2 (04:35→23:51)
[2019-03-28 05:37] LABS: HEMATOCRIT 26.7 % (37.9-51.0); HEMOGLOBIN 8.9 g/dL (13.5-17.0); MEAN CORPUSCULAR HEMOGLOBIN 29.7 pg (27.0-33.4); MEAN CORPUSCULAR HGB CONC 33.4 g/dL (32.0-36.0); MEAN CORPUSCULAR VOLUME 89 fl (80-97); PLATELET COUNT 286 10^3/uL (150-450); RED BLOOD COUNT 3.01 10^6/uL (4.35-5.55)
[2019-03-28 06:03] LABS: ANION GAP 12 (5-19); BLOOD UREA NITROGEN 19 mg/dL (7-20); CALCIUM 8.4 mg/dL (8.4-10.2); CARBON DIOXIDE 20 mmol/L (22-30); CHLORIDE 101 mmol/L (98-107); GLUCOSE 232 mg/dL (75-110); POTASSIUM 4.8 mmol/L (3.6-5.0)
[2019-03-28] MEDS: PANTOPRAZOLE SODIUM 40 MG TABLET.DR PO SCH (06:39)
--- NOTE | 2019-03-28 08:06 | RADIOLOGY REPORT (SQ) ---
EXAM DESCRIPTION: NO CHG FLUORO; HIP RIGHT AP/LATERAL COMPLETED DATE/TIME: 03/27/2019 7:59 pm REASON FOR STUDY: CANNULATED SCREWS COMPARISON: Recent radiographs. FLUOROSCOPY TIME: 1 minutes 4 images saved to PACS. TECHNIQUE: Intra-operative images acquired during surgical procedure to evaluate progress. NUMBER OF IMAGES: 4 LIMITATIONS: None. FINDINGS: Images reveal open reduction internal fixation of hip fracture. IMPRESSION: IMAGE(S) OBTAINED DURING PROCEDURE. COMMENT: Quality ID 145: Final reports for procedures using fluoroscopy that document radiation exp osure indices, or exposure time and number of fluorographic images (if radiation exposure indices are not available) Please consult full operative report of the attending physician for description of the procedure. TECHNICAL DOCUMENTATION: JOB ID: [id number] 2010 [employer]- All Rights Reserved Reading location - IP/workstation name: [email or web address]
--- NOTE | 2019-03-28 08:06 | RADIOLOGY REPORT (SQ) ---
EXAM DESCRIPTION: NO CHG FLUORO; HIP RIGHT AP/LATERAL COMPLETED DATE/TIME: 03/27/2019 7:59 pm REASON FOR STUDY: CANNULATED SCREWS COMPARISON: Recent radiographs. FLUOROSCOPY TIME: 1 minutes 4 images saved to PACS. TECHNIQUE: Intra-operative images acquired during surgical procedure to evaluate progress. NUMBER OF IMAGES: 4 LIMITATIONS: None. FINDINGS: Images reveal open reduction internal fixation of hip fracture. IMPRESSION: IMAGE(S) OBTAINED DURING PROCEDURE. COMMENT: Quality ID 145: Final reports for procedures using fluoroscopy that document radiation exp osure indices, or exposure time and number of fluorographic images (if radiation exposure indices are not available) Please consult full operative report of the attending physician for description of the procedure. TECHNICAL DOCUMENTATION: JOB ID: [id number] 2010 [employer]- All Rights Reserved Reading location - IP/workstation name: [email or web address]
--- NOTE | 2019-03-28 09:32 | PDOC PROGRESS REPORT ---
Subjective Progress Note for:: 03/28/19 Reason For Visit: RT HIP FRACTURE 73-year-old white male now postop day 1 status post percutaneous internal fixation of a valgus impacted right femoral neck fracture. The patient sitting up in bed this morning alert and oriented. He is complaining of contralateral hip pain. Physical Exam Vital Signs: Temp Pulse Resp BP Pulse Ox 37.2 C 107 H 18 146/80 H 98 03/28/19 07:56 03/28/19 07:56 03/28/19 07:56 03/28/19 07:56 03/28/19 07:56 Intake & Output 03/27/19 03/28/19 03/29/19 06:59 06:59 06:59 Intake Total 1770 2360 Output Total 975 1775 Balance 795 585 Weight 82 kg 84.5 kg General appearance: PRESENT: no acute distress, mild distress Head exam: PRESENT: normocephalic - Amenorrhea Respiratory exam: PRESENT: unlabored - Doing the grind Cardiovascular exam: PRESENT: RRR Pulses: PRESENT: +1 pedal pulses bilateral Vascular exam: PRESENT: normal capillary refill Extremities exam: PRESENT: other - Right hip dressing clean dry and intact. Leg lengths equal. Distal neurovascular examination is intact. Neurological exam: PRESENT: alert, awake, oriented to person, oriented to place, oriented to time, oriented to situation. ABSENT: motor sensory deficit Psychiatric exam: PRESENT: appropriate affect, normal mood. ABSENT: homicidal ideation, suicidal ideation Skin exam: PRESENT: dry, intact, warm. ABSENT: cyanosis, rash Results Laboratory Results: 03/28/19 05:06 03/28/19 05:06 03/28/19 03/28/19 05:06 05:06 WBC 13.0 H RBC 3.01 L Hgb 8.9 L Hct 26.7 L MCV 89 MCH 29.7 MCHC 33.4 RDW 14.0 Plt Count 286 Sodium 132.8 L Potassium 4.8 Chloride 101 Carbon Dioxide 20 L Anion Gap 12 BUN 19 Creatinine 1.24 Est GFR ( Amer) > 60 Glucose 232 H Calcium 8.4 03/26/19 03/26/19 07:06 07:06 Creatine Kinase 127 Troponin I < 0.012 Impressions: Shoulder X-Ray 03/26/19 00:00 IMPRESSION: NEGATIVE STUDY OF THE RIGHT SHOULDER. NO RADIOGRAPHIC EVIDENCE OF ACUTE INJURY. Cervical Spine CT 03/26/19 11:43 IMPRESSION: CHRONIC DEGENERATIVE CHANGES. NO ACUTE FINDINGS. Lower Extremity CT 03/26/19 11:43 IMPRESSION: IMPACTED FRACTURE OF THE RIGHT FEMORAL NECK. Chest X-Ray 03/26/19 14:13 IMPRESSION: Borderline cardiomegaly without pulmonary edema. Fluoroscopy 03/27/19 00:00 IMPRESSION: IMAGE(S) OBTAINED DURING PROCEDURE. Hip/Pelvis X-Ray 03/27/19 00:00 IMPRESSION: IMAGE(S) OBTAINED DURING PROCEDURE. Status: Imported from PACS Assessment & Plan - Diagnosis (1) Closed displaced fracture of right femoral neck Is this a current diagnosis for this admission?: Yes Plan: Mobilized with physical therapy on a touchdown weightbearing restriction on the right lower extremity. Anticipate the need for fdc facility placement. - Time Time Spent with patient: 15-24 minutes Anticipated discharge: SNF Within: when bed available
[2019-03-28] MEDS: INSULIN LISPRO 100 UNIT/ML 3 ML VIAL SUBCUT SCH ×4 (09:51→23:40)
[2019-03-28] MEDS: ISOSORBIDE MONONITRATE 60 MG TAB.ER.24H PO SCH (09:56)
[2019-03-28] MEDS: SERTRALINE HCL 50 MG TABLET PO SCH (09:56)
[2019-03-28] MEDS: TAMSULOSIN HCL 0.4 MG CAP.SR.24H PO SCH (09:57)
[2019-03-28] MEDS: DOCUSATE SODIUM 100 MG CAPSULE PO SCH (09:57)
[2019-03-28] MEDS: LOSARTAN POTASSIUM 25 MG TABLET PO SCH (09:57)
[2019-03-28] MEDS: AMLODIPINE BESYLATE 5 MG TABLET PO SCH (09:57)
[2019-03-28] MEDS: CETIRIZINE 10 MG TABLET PO SCH (09:57)
[2019-03-28] MEDS: ENOXAPARIN SODIUM INJ 30 MG/0.3 ML DISP.SYRIN SUBCUT SCH (09:57)
[2019-03-28] MEDS: METOPROLOL SUCCINATE 25 MG TAB.SR.24H PO SCH (09:57)
[2019-03-28] MEDS ORDERED: OXYCODONE-ACETAMINOPHEN 5-325 MG TABLET PO PRN (12:17)
--- NOTE | 2019-03-28 13:45 | PDOC PROGRESS REPORT ---
Subjective Progress Note for:: 03/28/19 Subjective:: FLORENTINO HAMEED JR is a 73 year old male with a past medical history of hypertension, non-STEMI, CHF, pulmonary hypertension, hyperlipidemia, DM 2, TIA, weakness with frequent falls at home who was admitted 03/26/2019 with right hip fracture. Patient was seen on morning rounds. He is found resting in bed, comfortably, on supplemental oxygen via nasal cannula. He reports that his pain is well controlled with pain medication regiment; he is actually pain-free if he is now moving. He reports that he did work with physical therapy; was able to stand briefly today with assistance. He denies fever, chills, chest pain, palpitations, dyspnea, orthopnea, cough, abdominal pain, nausea vomiting and diarrhea. He has no questions or concerns at this time. Per nursing, patient had reported that he was seeing small black dots on the floor (visual hallucination). Otherwise he has had normal mentation and remains oriented x4. Reason For Visit: RT HIP FRACTURE Physical Exam Vital Signs: Temp Pulse Resp BP Pulse Ox 97.9 F 101 H 18 138/64 H 93 03/28/19 11:40 03/28/19 11:40 03/28/19 11:40 03/28/19 11:40 03/28/19 11:40 Intake & Output 03/27/19 03/28/19 03/29/19 06:59 06:59 06:59 Intake Total 1770 2360 120 Output Total 975 1775 200 Balance 795 585 -80 Weight 82 kg 84.5 kg General appearance: PRESENT: no acute distress, cooperative, well-developed, well-nourished Head exam: PRESENT: atraumatic, normocephalic Eye exam: PRESENT: conjunctiva pink, EOMI, PERRLA. ABSENT: scleral icterus Ear exam: PRESENT: normal external ear exam Mouth exam: PRESENT: moist, tongue midline Respiratory exam: PRESENT: clear to auscultation blank, symmetrical, unlabored. ABSENT: rales, rhonchi, wheezes Cardiovascular exam: PRESENT: RRR, +S1, +S2. ABSENT: diastolic murmur, rubs, systolic murmur Pulses: PRESENT: normal dorsalis pedis pul Vascular exam: PRESENT: normal capillary refill Extremities exam: PRESENT: tenderness - RLE. ABSENT: calf tenderness, clubbing, full ROM - Limited RLE, pedal edema Neurological exam: PRESENT: alert, awake, oriented to person, oriented to place, oriented to time, oriented to situation, CN II-XII grossly intact. ABSENT: motor sensory deficit Psychiatric exam: PRESENT: appropriate affect, normal mood. ABSENT: homicidal ideation, suicidal ideation Skin exam: PRESENT: dry, warm. ABSENT: cyanosis, intact - Right postop dressing, rash Results Laboratory Results: 03/28/19 05:06 03/28/19 05:06 03/28/19 03/28/19 05:06 05:06 WBC 13.0 H RBC 3.01 L Hgb 8.9 L Hct 26.7 L MCV 89 MCH 29.7 MCHC 33.4 RDW 14.0 Plt Count 286 Sodium 132.8 L Potassium 4.8 Chloride 101 Carbon Dioxide 20 L Anion Gap 12 BUN 19 Creatinine 1.24 Est GFR ( Amer) > 60 Glucose 232 H Calcium 8.4 03/26/19 03/26/19 07:06 07:06 Creatine Kinase 127 Troponin I < 0.012 Impressions: Shoulder X-Ray 03/26/19 00:00 IMPRESSION: NEGATIVE STUDY OF THE RIGHT SHOULDER. NO RADIOGRAPHIC EVIDENCE OF ACUTE INJURY. Cervical Spine CT 03/26/19 11:43 IMPRESSION: CHRONIC DEGENERATIVE CHANGES. NO ACUTE FINDINGS. Lower Extremity CT 03/26/19 11:43 IMPRESSION: IMPACTED FRACTURE OF THE RIGHT FEMORAL NECK. Chest X-Ray 03/26/19 14:13 IMPRESSION: Borderline cardiomegaly without pulmonary edema. Fluoroscopy 03/27/19 00:00 IMPRESSION: IMAGE(S) OBTAINED DURING PROCEDURE. Hip/Pelvis X-Ray 03/27/19 00:00 IMPRESSION: IMAGE(S) OBTAINED DURING PROCEDURE. Assessment and Plan - Diagnosis (1) Hip fracture, right Qualifiers: Right postop dressing clean dry and intact Encounter type: initial encounter Is this a current diagnosis for this admission?: Yes Plan: Following mechanical fall at home. CT imaging reveals impacted right femoral hip fracture. Postop day 1 Percutaneous pinning. Patient is admitted to the medical floor. Analgesics as needed. Have discontinued IV morphine; sliding scale oxycodone as needed for pain. Orthopedics is consulted. Postoperative prophylaxis per orthopedics expertise. Holding his daily aspirin and Plavix therapy. PT/OT consulted. Discharge planning consulted. (2) CHF (congestive heart failure) Qualifiers: Heart failure type: combined systolic and diastolic Heart failure chronicity: chronic Qualified Code(s): I50.42 - Chronic combined systolic (congestive) and diastolic (congestive) heart failure Is this a current diagnosis for this admission?: Yes Plan: Not in exacerbation. CXR is negative for pulmonary edema. Echocardiogram revealed LVEF 40 to 45% with mild pulmonary hypertension. Lung sounds are clear. Maintaining oxygen saturations at rest on room air. He does not have any dependent edema. We will continue the patient's home medication regiment of isosorbide, losartan, Toprol-XL, amlodipine. Holding home dose aspirin and Plavix due to surgical needs. Daily weights, strict I&O's. (3) Diabetes mellitus type 2 in nonobese Is this a current diagnosis for this admission?: Yes Plan: Holding oral antihyperglycemic medications. Patient is placed on Accu-Cheks before meals and at bedtime with Humalog for sliding scale coverage. Hypoglycemia protocol in place. We will check A1c with a.m. lab work due to frequent blood sugars in the 300s. (4) Hypertension Qualifiers: Hypertension type: essential hypertension Qualified Code(s): I10 - Essential (primary) hypertension Is this a current diagnosis for this admission?: Yes Plan: Continuing home medication regiment. (5) Hyperkalemia Is this a current diagnosis for this admission?: Yes Plan: Resolved. Possibly related to prolonged time on the floor after the patient's fall. Improved; 6.1-> 6.0-> 5.2->4.8 He received 1 time dose of IV furosemide, veltassa, and lactulose Follow-up chemistry. - Time Time Spent with patient: 25-34 minutes Medications reviewed and adjusted accordingly: Yes Anticipated discharge: SNF Within: within 72 hours
[2019-03-28] MEDS: OXYCODONE-ACETAMINOPHEN 5-325 MG TABLET PO PRN ×2 (15:49→23:41)
[2019-03-28] MEDS: PATIROMER 8.4 GM SUSP PACKET PO SCH (17:44)
[2019-03-29] MEDS: PANTOPRAZOLE SODIUM 40 MG TABLET.DR PO SCH (05:20)
[2019-03-29] MEDS: OXYCODONE-ACETAMINOPHEN 5-325 MG TABLET PO PRN ×2 (05:20→22:05)
[2019-03-29 05:57] LABS: HEMATOCRIT 28.1 % (37.9-51.0); HEMOGLOBIN 9.2 g/dL (13.5-17.0); MEAN CORPUSCULAR HEMOGLOBIN 29.3 pg (27.0-33.4); MEAN CORPUSCULAR HGB CONC 32.9 g/dL (32.0-36.0); MEAN CORPUSCULAR VOLUME 89 fl (80-97); PLATELET COUNT 285 10^3/uL (150-450); RED BLOOD COUNT 3.15 10^6/uL (4.35-5.55); WHITE BLOOD COUNT 12.9 10^3/uL (4.0-10.5)
[2019-03-29 06:17] LABS: ANION GAP 13 (5-19); BLOOD UREA NITROGEN 24 mg/dL (7-20); CALCIUM 8.5 mg/dL (8.4-10.2); CARBON DIOXIDE 20 mmol/L (22-30); CHLORIDE 98 mmol/L (98-107); GLUCOSE 328 mg/dL (75-110); POTASSIUM 4.7 mmol/L (3.6-5.0)
[2019-03-29] MEDS: INSULIN LISPRO 100 UNIT/ML 3 ML VIAL SUBCUT SCH ×4 (08:06→22:06)
[2019-03-29] MEDS: LOSARTAN POTASSIUM 25 MG TABLET PO SCH (10:06)
[2019-03-29] MEDS: TAMSULOSIN HCL 0.4 MG CAP.SR.24H PO SCH (10:06)
[2019-03-29] MEDS: CETIRIZINE 10 MG TABLET PO SCH (10:06)
[2019-03-29] MEDS: DOCUSATE SODIUM 100 MG CAPSULE PO SCH (10:06)
[2019-03-29] MEDS: SERTRALINE HCL 50 MG TABLET PO SCH (10:06)
[2019-03-29] MEDS: METOPROLOL SUCCINATE 25 MG TAB.SR.24H PO SCH (10:06)
[2019-03-29] MEDS: AMLODIPINE BESYLATE 5 MG TABLET PO SCH (10:07)
[2019-03-29] MEDS: ISOSORBIDE MONONITRATE 60 MG TAB.ER.24H PO SCH (10:07)
[2019-03-29] MEDS: ENOXAPARIN SODIUM INJ 30 MG/0.3 ML DISP.SYRIN SUBCUT SCH (10:07)
[2019-03-29] MEDS: ACETAMINOPHEN 325 MG TABLET PO PRN (11:37)
--- NOTE | 2019-03-29 11:46 | RADIOLOGY REPORT (SQ) ---
EXAM DESCRIPTION: CHEST SINGLE VIEW COMPLETED DATE/TIME: 03/29/2019 11:34 am REASON FOR STUDY: dyspnea COMPARISON: 03/26/2019. EXAM PARAMETERS: NUMBER OF VIEWS: One view. TECHNIQUE: Single frontal radiographic view of the chest acquired. RADIATION DOSE: NA LIMITATIONS: None. FINDINGS: LUNGS AND PLEURA: Chronic interstitial changes. Faint airspace disease in the right upper lobe and possibly left costophrenic angle. MEDIASTINUM AND HILAR STRUCTURES: No masses. Contour normal. HEART AND VASCULAR STRUCTURES: Heart normal in size. Normal vasculature. BONES: No acute findings. HARDWARE: None in the chest. OTHER: No other significant finding. IMPRESSION: CHRONIC INTERSTITIAL CHANGES. POSSIBLE DEVELOPING INFILTRATE/ PNEUMONIA IN THE RIGHT UP PER LOBE. SIMILAR FINDING IN THE LEFT COSTOPHRENIC ANGLE. TECHNICAL DOCUMENTATION: JOB ID: [id number] 2010 [employer]- All Rights Reserved Reading location - IP/workstation name: [email or web address]
--- NOTE | 2019-03-29 12:24 | PDOC PROGRESS REPORT ---
Subjective Progress Note for:: 03/29/19 Subjective:: Patient lying in bed comfortably. No issues overnight. According to his son the pain has been improving and he has seen improvement with therapy. Reason For Visit: RT HIP FRACTURE Physical Exam Vital Signs: Temp Pulse Resp BP Pulse Ox 100.2 F 105 H 19 157/64 H 93 03/29/19 11:24 03/29/19 11:24 03/29/19 11:24 03/29/19 11:24 03/29/19 11:24 Intake & Output 03/28/19 03/29/19 03/30/19 06:59 06:59 06:59 Intake Total 2360 1360 Output Total 1775 600 Balance 585 760 Weight 84.5 kg 84 kg Musculoskeletal exam: PRESENT: other - Right hip: Dressing clean/dry/intact no erythema or drainage. Moderate thigh swelling without change, intact plantarflexion/dorsiflexion. No sensory deficits. No calf tenderness. Results Laboratory Results: 03/29/19 05:40 03/29/19 05:40 03/29/19 03/29/19 05:40 05:40 WBC 12.9 H RBC 3.15 L Hgb 9.2 L Hct 28.1 L MCV 89 MCH 29.3 MCHC 32.9 RDW 14.0 Plt Count 285 Sodium 131.3 L Potassium 4.7 Chloride 98 Carbon Dioxide 20 L Anion Gap 13 BUN 24 H Creatinine 1.86 H Est GFR ( Amer) 43 L Glucose 328 H Calcium 8.5 03/26/19 03/26/19 07:06 07:06 Creatine Kinase 127 Troponin I < 0.012 Impressions: Shoulder X-Ray 03/26/19 00:00 IMPRESSION: NEGATIVE STUDY OF THE RIGHT SHOULDER. NO RADIOGRAPHIC EVIDENCE OF ACUTE INJURY. Cervical Spine CT 03/26/19 11:43 IMPRESSION: CHRONIC DEGENERATIVE CHANGES. NO ACUTE FINDINGS. Lower Extremity CT 03/26/19 11:43 IMPRESSION: IMPACTED FRACTURE OF THE RIGHT FEMORAL NECK. Fluoroscopy 03/27/19 00:00 IMPRESSION: IMAGE(S) OBTAINED DURING PROCEDURE. Hip/Pelvis X-Ray 03/27/19 00:00 IMPRESSION: IMAGE(S) OBTAINED DURING PROCEDURE. Chest X-Ray 03/29/19 00:00 IMPRESSION: CHRONIC INTERSTITIAL CHANGES. POSSIBLE DEVELOPING INFILTRATE/ PNEUMONIA IN THE RIGHT UPPER LOBE. SIMILAR FINDING IN THE LEFT COSTOPHRENIC ANGLE. Assessment & Plan - Diagnosis (1) Closed displaced fracture of right femoral neck Is this a current diagnosis for this admission?: Yes Plan: Postop day #2 status post right hip closed reduction percutaneous pinning 1. Physical therapy weightbearing as tolerated 2. Pain control 3. Lovenox for DVT prophylaxis 4 discharge planning: Patient will require long-term facility when bed available - Time Time Spent with patient: Less than 15 minutes
[2019-03-29] MEDS ORDERED: HYDRALAZINE HCL INJ/PF 20 MG/1 ML SDV IV PRN (12:29)
--- NOTE | 2019-03-29 12:32 | PDOC PROGRESS REPORT ---
Subjective Progress Note for:: 03/29/19 Subjective:: FLORENTINO HAMEED JR is a 73 year old male with a past medical history of hypertension, non-STEMI, CHF, pulmonary hypertension, hyperlipidemia, DM 2, TIA, weakness with frequent falls at home who was admitted 03/26/2019 with right hip fracture. Patient was seen on morning rounds. He is found resting in bed, comfortably, on supplemental oxygen via nasal cannula. He reports that his pain is well controlled with pain medication regimen. However, he is having generalized body aches, fatigue, dyspnea, and nonproductive cough. He denies chest pain, palpitations, orthopnea, abdominal pain, nausea vomiting and diarrhea. He has no other questions or concerns at this time. Nursing reports low grade temperature. Reason For Visit: RT HIP FRACTURE Physical Exam Vital Signs: Temp Pulse Resp BP Pulse Ox 100.2 F 105 H 19 157/64 H 93 03/29/19 11:24 03/29/19 11:24 03/29/19 11:24 03/29/19 11:24 03/29/19 11:24 Intake & Output 03/28/19 03/29/19 03/30/19 06:59 06:59 06:59 Intake Total 2360 1360 Output Total 1775 600 Balance 585 760 Weight 84.5 kg 84 kg General appearance: PRESENT: no acute distress, cooperative, well-developed, well-nourished, other - acutely ill appering Head exam: PRESENT: atraumatic, normocephalic Eye exam: PRESENT: conjunctiva pink, EOMI, PERRLA. ABSENT: scleral icterus Mouth exam: PRESENT: moist, tongue midline Respiratory exam: PRESENT: prolonged expiratory phas, rhonchi - throughout, symmetrical, tachypnea, other - supplemental oxygen via NC. ABSENT: rales, wheezes Cardiovascular exam: PRESENT: RRR, +S1, +S2, tachycardia - HR 80-105. ABSENT: diastolic murmur, rubs, systolic murmur Pulses: PRESENT: normal dorsalis pedis pul Vascular exam: PRESENT: normal capillary refill Extremities exam: PRESENT: tenderness - RLE. ABSENT: calf tenderness, clubbing, pedal edema Neurological exam: PRESENT: alert, awake, oriented to person, oriented to place, oriented to time, oriented to situation, CN II-XII grossly intact. ABSENT: motor sensory deficit Psychiatric exam: PRESENT: appropriate affect, normal mood. ABSENT: homicidal ideation, suicidal ideation Skin exam: PRESENT: dry, warm. ABSENT: cyanosis, rash Results Laboratory Results: 03/29/19 05:40 03/29/19 05:40 03/29/19 03/29/19 05:40 05:40 WBC 12.9 H RBC 3.15 L Hgb 9.2 L Hct 28.1 L MCV 89 MCH 29.3 MCHC 32.9 RDW 14.0 Plt Count 285 Sodium 131.3 L Potassium 4.7 Chloride 98 Carbon Dioxide 20 L Anion Gap 13 BUN 24 H Creatinine 1.86 H Est GFR ( Amer) 43 L Glucose 328 H Calcium 8.5 03/26/19 03/26/19 07:06 07:06 Creatine Kinase 127 Troponin I < 0.012 Impressions: Shoulder X-Ray 03/26/19 00:00 IMPRESSION: NEGATIVE STUDY OF THE RIGHT SHOULDER. NO RADIOGRAPHIC EVIDENCE OF ACUTE INJURY. Cervical Spine CT 03/26/19 11:43 IMPRESSION: CHRONIC DEGENERATIVE CHANGES. NO ACUTE FINDINGS. Lower Extremity CT 03/26/19 11:43 IMPRESSION: IMPACTED FRACTURE OF THE RIGHT FEMORAL NECK. Fluoroscopy 03/27/19 00:00 IMPRESSION: IMAGE(S) OBTAINED DURING PROCEDURE. Hip/Pelvis X-Ray 03/27/19 00:00 IMPRESSION: IMAGE(S) OBTAINED DURING PROCEDURE. Chest X-Ray 03/29/19 00:00 IMPRESSION: CHRONIC INTERSTITIAL CHANGES. POSSIBLE DEVELOPING INFILTRATE/ PNEUMONIA IN THE RIGHT UPPER LOBE. SIMILAR FINDING IN THE LEFT COSTOPHRENIC ANGLE. Assessment and Plan - Diagnosis (1) Hip fracture, right Qualifiers: Encounter type: initial encounter Is this a current diagnosis for this admission?: Yes Plan: Following mechanical fall at home. CT imaging reveals impacted right femoral hip fracture. Postop day 2 Percutaneous pinning. Patient is admitted to the medical floor. Analgesics as needed. Sliding scale oxycodone as needed for pain. Orthopedics is consulted. Postoperative prophylaxis per orthopedics expertise. Holding his daily aspirin and Plavix therapy. PT/OT consulted. Discharge planning consulted. (2) CHF (congestive heart failure) Qualifiers: Heart failure type: combined systolic and diastolic Heart failure chronicity: chronic Qualified Code(s): I50.42 - Chronic combined systolic (congestive) and diastolic (congestive) heart failure Is this a current diagnosis for this admission?: Yes Plan: Not in exacerbation. CXR is negative for pulmonary edema. Echocardiogram revealed LVEF 40 to 45% with mild pulmonary hypertension. Lung sounds are clear. Maintaining oxygen saturations at rest on room air. He does not have any dependent edema. We will continue the patient's home medication regiment of isosorbide, losartan, Toprol-XL, amlodipine. Holding home dose aspirin and Plavix; resume tomorrow. Daily weights, strict I&O's. (3) Diabetes mellitus type 2 in nonobese Is this a current diagnosis for this admission?: Yes Plan: A1C 7.4% Holding oral antihyperglycemic medications. Patient is placed on Accu-Cheks before meals and at bedtime with Humalog for sliding scale coverage. Hypoglycemia protocol in place. Cardiac/consistent carb diet. (4) Hypertension Qualifiers: Hypertension type: essential hypertension Qualified Code(s): I10 - Essential (primary) hypertension Is this a current diagnosis for this admission?: Yes Plan: Continuing home medication regiment. IV hydralazine as needed for BP control. (5) Hyperkalemia Is this a current diagnosis for this admission?: Yes Plan: Resolved. Possibly related to prolonged time on the floor after the patient's fall. Improved; 6.1-> 6.0-> 5.2->4.8 He received 1 time dose of IV furosemide, veltassa, and lactulose Follow-up chemistry. (6) Pneumonia Qualifiers: Pneumonia type: due to unspecified organism Laterality: bilateral Lung location: unspecified part of lung Qualified Code(s): J18.9 - Pneumonia, unspecified organism Is this a current diagnosis for this admission?: Yes Plan: Healthcare associated pneumonia. Patient with low-grade temperature, persistent leukocytosis, increased oxygen ne eds, tachypnea, and adventitious lung sounds. Chest x-ray on admission was clear. Follow-up chest x-ray today shows developing right upper lobe and left lingula consolidations. Continue supplemental oxygen. Scheduled and as needed nebulizer treatments Blood and sputum cultures pending. Empirically placed on IV cefepime and Levaquin. Pulmonary toilet. - Time Time Spent with patient: 35 or more minutes Medications reviewed and adjusted accordingly: Yes Anticipated discharge: SNF Within: within 72 hours
[2019-03-29] MEDS: LEVOFLOXACIN 750 MG/D5W RTU 750 MG/150 ML RTUPB IV SCH (13:11)
[2019-03-29] MEDS: IPRATROPIUM/ALBUTEROL 0.5-2.5 MG/3 ML AMPUL NEB SCH ×2 (16:57→23:51)
[2019-03-29] MEDS: CEFEPIME HCL 2 GM in DEXTROSE 5%-WATER 50 ML IV SCH (17:20)
[2019-03-29] MEDS: PATIROMER 8.4 GM SUSP PACKET PO SCH (17:21)
[2019-03-29] MEDS ORDERED: CEFEPIME 2 GM/D5W RTU 50 ML IV SCH (22:00)
[2019-03-29] MEDS: NORMAL SALINE 1000 ML 1,000 ML IV PRN (23:40)
[2019-03-30] MEDS: OXYCODONE-ACETAMINOPHEN 5-325 MG TABLET PO PRN ×2 (02:41→06:47)
[2019-03-30] MEDS: CEFEPIME HCL 2 GM in DEXTROSE 5%-WATER 50 ML IV SCH ×2 (05:52→17:40)
[2019-03-30] MEDS: PANTOPRAZOLE SODIUM 40 MG TABLET.DR PO SCH (06:47)
[2019-03-30 07:18] LABS: HEMATOCRIT 22.4 % (37.9-51.0); MEAN CORPUSCULAR HEMOGLOBIN 29.6 pg (27.0-33.4); MEAN CORPUSCULAR HGB CONC 33.4 g/dL (32.0-36.0); MEAN CORPUSCULAR VOLUME 89 fl (80-97); PLATELET COUNT 271 10^3/uL (150-450); RED BLOOD COUNT 2.53 10^6/uL (4.35-5.55); RED CELL DISTRIBUTION WIDTH 13.8 % (11.5-14.0); WHITE BLOOD COUNT 11.3 10^3/uL (4.0-10.5)
[2019-03-30 07:24] LABS: HEMOGLOBIN 7.5 g/dL (13.5-17.0)
[2019-03-30 07:44] LABS: ANION GAP 11 (5-19); BLOOD UREA NITROGEN 23 mg/dL (7-20); CALCIUM 8.2 mg/dL (8.4-10.2); CARBON DIOXIDE 19 mmol/L (22-30); CHLORIDE 100 mmol/L (98-107); GLUCOSE 290 mg/dL (75-110); POTASSIUM 5.1 mmol/L (3.6-5.0)
[2019-03-30] MEDS: INSULIN LISPRO 100 UNIT/ML 3 ML VIAL SUBCUT SCH ×4 (08:16→21:48)
[2019-03-30] MEDS: IPRATROPIUM/ALBUTEROL 0.5-2.5 MG/3 ML AMPUL NEB SCH ×2 (08:59→16:03)
[2019-03-30] MEDS: LOSARTAN POTASSIUM 25 MG TABLET PO SCH (10:07)
[2019-03-30] MEDS: DOCUSATE SODIUM 100 MG CAPSULE PO SCH (10:07)
[2019-03-30] MEDS: TAMSULOSIN HCL 0.4 MG CAP.SR.24H PO SCH (10:07)
[2019-03-30] MEDS: SERTRALINE HCL 50 MG TABLET PO SCH (10:07)
[2019-03-30] MEDS: AMLODIPINE BESYLATE 5 MG TABLET PO SCH (10:07)
[2019-03-30] MEDS: METOPROLOL SUCCINATE 25 MG TAB.SR.24H PO SCH (10:07)
[2019-03-30] MEDS: ISOSORBIDE MONONITRATE 60 MG TAB.ER.24H PO SCH (10:07)
[2019-03-30] MEDS: CETIRIZINE 10 MG TABLET PO SCH (10:07)
[2019-03-30] MEDS: ENOXAPARIN SODIUM INJ 30 MG/0.3 ML DISP.SYRIN SUBCUT SCH (10:08)
--- NOTE | 2019-03-30 11:43 | PDOC PROGRESS REPORT ---
Subjective Progress Note for:: 03/30/19 Subjective:: Patient lying in bed comfortably. No issues overnight. Patient states pain is currently controlled. Denies chest pain or shortness of breath. Reason For Visit: RT HIP FRACTURE Physical Exam Vital Signs: Temp Pulse Resp BP Pulse Ox 99.0 F 106 H 20 149/71 H 89 L 03/30/19 08:09 03/30/19 09:02 03/30/19 09:02 03/30/19 08:09 03/30/19 09:02 Intake & Output 03/29/19 03/30/19 03/31/19 06:59 06:59 06:59 Intake Total 1360 1901 Output Total 600 1250 Balance 760 651 Weight 84 kg 165.1 kg Musculoskeletal exam: PRESENT: other - Right hip: Dressing clean/dry/intact no erythema or drainage. Moderate thigh swelling without change, intact plantarflexion/dorsiflexion. No sensory deficits. No calf tenderness. Results Laboratory Results: 03/30/19 06:46 03/30/19 06:46 03/30/19 03/30/19 06:46 06:46 WBC 11.3 H RBC 2.53 L Hgb 7.5 L Hct 22.4 L MCV 89 MCH 29.6 MCHC 33.4 RDW 13.8 Plt Count 271 Sodium 129.8 L Potassium 5.1 H Chloride 100 Carbon Dioxide 19 L Anion Gap 11 BUN 23 H Creatinine 1.43 H Est GFR ( Amer) 58 L Glucose 290 H Calcium 8.2 L 03/26/19 03/26/19 07:06 07:06 Creatine Kinase 127 Troponin I < 0.012 Impressions: Shoulder X-Ray 03/26/19 00:00 IMPRESSION: NEGATIVE STUDY OF THE RIGHT SHOULDER. NO RADIOGRAPHIC EVIDENCE OF ACUTE INJURY. Cervical Spine CT 03/26/19 11:43 IMPRESSION: CHRONIC DEGENERATIVE CHANGES. NO ACUTE FINDINGS. Lower Extremity CT 03/26/19 11:43 IMPRESSION: IMPACTED FRACTURE OF THE RIGHT FEMORAL NECK. Fluoroscopy 03/27/19 00:00 IMPRESSION: IMAGE(S) OBTAINED DURING PROCEDURE. Hip/Pelvis X-Ray 03/27/19 00:00 IMPRESSION: IMAGE(S) OBTAINED DURING PROCEDURE. Chest X-Ray 03/29/19 00:00 IMPRESSION: CHRONIC INTERSTITIAL CHANGES. POSSIBLE DEVELOPING INFILTRATE/ PNEUMONIA IN THE RIGHT UPPER LOBE. SIMILAR FINDING IN THE LEFT COSTOPHRENIC ANGLE. Assessment & Plan - Diagnosis (1) Closed displaced fracture of right femoral neck Is this a current diagnosis for this admission?: Yes Plan: Postop day #3 status post right hip closed reduction percutaneous pinning 1. Physical therapy weightbearing as tolerated 2. Pain control 3. Lovenox for DVT prophylaxis 4 discharge planning: Patient will require senior living facility when bed available - Time Time Spent with patient: Less than 15 minutes
[2019-03-30] MEDS: LEVOFLOXACIN 750 MG/D5W RTU 750 MG/150 ML RTUPB IV SCH (12:15)
[2019-03-30] MEDS: NORMAL SALINE 1000 ML 1,000 ML IV PRN (12:16)
[2019-03-30 13:18] LABS: HEMATOCRIT 26.7 % (37.9-51.0); HEMOGLOBIN 8.8 g/dL (13.5-17.0); MEAN CORPUSCULAR HEMOGLOBIN 29.3 pg (27.0-33.4); MEAN CORPUSCULAR HGB CONC 32.8 g/dL (32.0-36.0); MEAN CORPUSCULAR VOLUME 89 fl (80-97); PLATELET COUNT 339 10^3/uL (150-450); RED BLOOD COUNT 2.99 10^6/uL (4.35-5.55); RED CELL DISTRIBUTION WIDTH 13.8 % (11.5-14.0); WHITE BLOOD COUNT 15.2 10^3/uL (4.0-10.5)
--- NOTE | 2019-03-30 15:09 | PDOC PROGRESS REPORT ---
Subjective Progress Note for:: 03/30/19 Subjective:: FLORENTINO HAMEED JR is a 73 year old male with a past medical history of hypertension, non-STEMI, CHF, pulmonary hypertension, hyperlipidemia, DM 2, TIA, weakness with frequent falls at home who was admitted 03/26/2019 with right hip fracture. Patient was seen on morning rounds. He is found resting in bed, comfortably, on supplemental oxygen via nasal cannula. He reports that his pain is well controlled with pain medication regimen. He is very tired at the moment; just finished working with physical therapy. He reports his dyspnea and cough are improved. He denies chest pain, palpitations, orthopnea, abdominal pain, nausea vomiting and diarrhea. He has no other questions or concerns at this time. Reason For Visit: RT HIP FRACTURE Physical Exam Vital Signs: Temp Pulse Resp BP Pulse Ox 98.9 F 102 H 17 162/74 H 96 03/30/19 10:53 03/30/19 10:53 03/30/19 10:53 03/30/19 10:53 03/30/19 10:53 Intake & Output 03/29/19 03/30/19 03/31/19 06:59 06:59 06:59 Intake Total 1360 1901 585 Output Total 600 1250 350 Balance 760 651 235 Weight 84 kg 165.1 kg General appearance: PRESENT: no acute distress, cooperative, well-developed, well-nourished Head exam: PRESENT: atraumatic, normocephalic Eye exam: PRESENT: conjunctiva pink, EOMI, PERRLA. ABSENT: scleral icterus Mouth exam: PRESENT: moist, tongue midline Respiratory exam: PRESENT: clear to auscultation blank, symmetrical, unlabored, other - Supplemental oxygen via nasal cannula. ABSENT: rales, rhonchi, wheezes Cardiovascular exam: PRESENT: RRR, +S1, +S2. ABSENT: diastolic murmur, rubs, systolic murmur Pulses: PRESENT: normal dorsalis pedis pul Vascular exam: PRESENT: normal capillary refill Extremities exam: PRESENT: tenderness - Right hip. ABSENT: calf tenderness, clubbing, pedal edema Neurological exam: PRESENT: alert, awake, oriented to person, oriented to place, oriented to time, oriented to situation, CN II-XII grossly intact, other - Fatigued. ABSENT: motor sensory deficit Psychiatric exam: PRESENT: appropriate affect, normal mood. ABSENT: homicidal ideation, suicidal ideation Skin exam: PRESENT: dry, warm. ABSENT: cyanosis, rash Results Laboratory Results: 03/30/19 12:53 03/30/19 06:46 03/30/19 03/30/19 03/30/19 06:46 06:46 12:53 WBC 11.3 H 15.2 H RBC 2.53 L 2.99 L Hgb 7.5 L 8.8 L Hct 22.4 L 26.7 L MCV 89 89 MCH 29.6 29.3 MCHC 33.4 32.8 RDW 13.8 13.8 Plt Count 271 339 Sodium 129.8 L Potassium 5.1 H Chloride 100 Carbon Dioxide 19 L Anion Gap 11 BUN 23 H Creatinine 1.43 H Est GFR ( Amer) 58 L Glucose 290 H Calcium 8.2 L 03/26/19 03/26/19 07:06 07:06 Creatine Kinase 127 Troponin I < 0.012 Impressions: Shoulder X-Ray 03/26/19 00:00 IMPRESSION: NEGATIVE STUDY OF THE RIGHT SHOULDER. NO RADIOGRAPHIC EVIDENCE OF ACUTE INJURY. Cervical Spine CT 03/26/19 11:43 IMPRESSION: CHRONIC DEGENERATIVE CHANGES. NO ACUTE FINDINGS. Lower Extremity CT 03/26/19 11:43 IMPRESSION: IMPACTED FRACTURE OF THE RIGHT FEMORAL NECK. Fluoroscopy 03/27/19 00:00 IMPRESSION: IMAGE(S) OBTAINED DURING PROCEDURE. Hip/Pelvis X-Ray 03/27/19 00:00 IMPRESSION: IMAGE(S) OBTAINED DURING PROCEDURE. Chest X-Ray 03/29/19 00:00 IMPRESSION: CHRONIC INTERSTITIAL CHANGES. POSSIBLE DEVELOPING INFILTRATE/ PNEUMONIA IN THE RIGHT UPPER LOBE. SIMILAR FINDING IN THE LEFT COSTOPHRENIC ANGLE. Assessment and Plan - Diagnosis (1) Hip fracture, right Qualifiers: Encounter type: initial encounter Is this a current diagnosis for this admission?: Yes Plan: Following mechanical fall at home. CT imaging reveals impacted right femoral hip fracture. Postop day 3 Percutaneous pinning. Patient is admitted to the medical floor. Analgesics as needed. Oxycodone as needed for pain. Orthopedics is consulted. Postoperative prophylaxis per orthopedics expertise. PT/OT consulted. Discharge planning consulted. (2) CHF (congestive heart failure) Qualifiers: Heart failure type: combined systolic and diastolic Heart failure chronicity: chronic Qualified Code(s): I50.42 - Chronic combined systolic (congestive) and diastolic (congestive) heart failure Is this a current diagnosis for this admission?: Yes Plan: Not in exacerbation. CXR is negative for pulmonary edema. Echocardiogram revealed LVEF 40 to 45% with mild pulmonary hypertension. We will continue the patient's home medication regiment of isosorbide, losartan, Toprol-XL, amlodipine. Resuming home dose aspirin and Plavix today Daily weights, strict I&O's. (3) Diabetes mellitus type 2 in nonobese Is this a current diagnosis for this admission?: Yes Plan: A1C 7.4% Holding oral antihyperglycemic medications. Lantus 6 units nightly Patient is placed on Accu-Cheks before meals and at bedtime with Humalog for sliding scale coverage. Hypoglycemia protocol in place. Cardiac/consistent carb diet. (4) Hypertension Qualifiers: Hypertension type: essential hypertension Qualified Code(s): I10 - Essential (primary) hypertension Is this a current diagnosis for this admission?: Yes Plan: Continuing home medication regiment. IV hydralazine as needed for BP control. (5) Hyperkalemia Is this a current diagnosis for this admission?: Yes Plan: Improved; 6.1-> 6.0-> 5.2->4.8-> 5.1 Resume home dose furosemide Continue daily [place] Follow-up chemistry. (6) Pneumonia Qualifiers: Pneumonia type: due to unspecified organism Laterality: bilateral Lung location: unspecified part of lung Qualified Code(s): J18.9 - Pneumonia, unspecified organism Is this a current diagnosis for this admission?: Yes Plan: Healthcare associated pneumonia. Patient with low-grade temperature, persistent leukocytosis, increased oxygen needs, tachypnea, and adventitious lung sounds. Chest x-ray on admission was clear. Follow-up chest x-ray shows developing right upper lobe and left lingula consolidations. Blood cultures have no growth at 24 hours. Sputum cultures pending. Continue supplemental oxygen. Scheduled and as needed nebulizer treatments Empirically placed on IV cefepime and Levaquin. Pulmonary toilet. (7) Hyponatremia Is this a current diagnosis for this admission?: Yes Plan: Sodium trending down; 137-> 135-> 131.3-> 129.9 Urine Na and Osmo pending. Continue IVF; decreased rate today Resumed home dose furosemide Follow up chemistry - Time Time Spent with patient: 25-34 minutes Medications reviewed and adjusted accordingly: Yes Anticipated discharge: SNF Within: within 48 hours
[2019-03-30] MEDS: PATIROMER 8.4 GM SUSP PACKET PO SCH (17:40)
[2019-03-30] MEDS: CLOPIDOGREL BISULFATE 75 MG TABLET PO SCH (17:40)
[2019-03-30 18:10] LABS: URINE SODIUM 55 mmol/L (30-90)
[2019-03-30 18:24] LABS: OSMOLALITY,URINE 523 mOsm/kg (300-900)
[2019-03-30] MEDS: INSULIN GLARGINE,HUM.REC.ANLOG 1,000 UNIT/10 ML VIAL SUBCUT SCH (21:48)
[2019-03-31] MEDS: IPRATROPIUM/ALBUTEROL 0.5-2.5 MG/3 ML AMPUL NEB SCH ×3 (00:53→16:40)
[2019-03-31] MEDS: OXYCODONE-ACETAMINOPHEN 5-325 MG TABLET PO PRN ×5 (01:45→22:06)
[2019-03-31] MEDS: NORMAL SALINE 1000 ML 1,000 ML IV PRN ×2 (01:46→05:36)
[2019-03-31] MEDS: LEVALBUTEROL HCL NEB 0.63 MG/3 ML AMPUL NEB PRN ×2 (03:13→20:17)
[2019-03-31] MEDS ORDERED: METOPROLOL TARTRATE PF/INJ 5 MG/5 ML SDV IV ONE ×2 (03:44→03:51)
[2019-03-31 04:20] LABS: CREATINE KINASE MB 1.03 ng/mL (<4.55)
[2019-03-31 04:26] LABS: TROPONIN I 0.342 ng/mL
--- NOTE | 2019-03-31 04:38 | RADIOLOGY REPORT (SQ) ---
AP Portable chest: 03/31/2019 3:36 AM RECREATIONAL SPECIALIST History: 73-year old patient with dyspnea. Comparison: Chest radiograph performed 03/31/2019. Findings: The cardiomediastinal silhouette is enlarged. No pneumothorax is seen. There are asymmetric airspace opacities at the apices, left greater than right. Airspace opacities are also seen at the left lung base. There is blunting of both costophrenic angles, suggestive of trace effusions. Atherosclerotic calcifications are seen at the aortic arch. Impression: There are increasing bilateral airspace opacities, most pronounced within the apices and left lung base. These may reflect edema or infection.
[2019-03-31] MEDS ORDERED: NORMAL SALINE 250 ML IV PRN ×2 (04:39)
[2019-03-31] MEDS: PANTOPRAZOLE SODIUM 40 MG TABLET.DR PO SCH (05:35)
[2019-03-31] MEDS: CEFEPIME HCL 2 GM in DEXTROSE 5%-WATER 50 ML IV SCH ×2 (06:08→17:26)
[2019-03-31 06:13] LABS: CREATINE KINASE MB 1.23 ng/mL (<4.55); TROPONIN I 0.376 ng/mL
[2019-03-31] MEDS ORDERED: INSULIN LISPRO 100 UNIT/ML 3 ML VIAL SUBCUT ONE (06:30)
[2019-03-31 09:05] LABS: ABSOLUTE LYMPHOCYTES (AUTO) 1.1 10^3/uL (0.5-4.7); ABSOLUTE MONOCYTES (AUTO) 1.3 10^3/uL (0.1-1.4); ABSOLUTE NEUT (AUTO) 10.6 10^3/uL (1.7-8.2); BASOPHILS % (AUTO) 0.2 % (0-2); EOSINOPHILS % (AUTO) 0.1 % (0-6); HEMATOCRIT 22.6 % (37.9-51.0); LYMPHOCYTES % (AUTO) 8.3 % (13-45); MEAN CORPUSCULAR HEMOGLOBIN 29.2 pg (27.0-33.4); MEAN CORPUSCULAR HGB CONC 32.9 g/dL (32.0-36.0); MEAN CORPUSCULAR VOLUME 89 fl (80-97); MONOCYTES % (AUTO) 10.2 % (3-13); PLATELET COUNT 331 10^3/uL (150-450); RED BLOOD COUNT 2.55 10^6/uL (4.35-5.55); SEGMENTED NEUTROPHILS % (AUTO) 81.2 % (42-78); TOTAL CELLS COUNTED % (AUTO) 100 %; WHITE BLOOD COUNT 13.1 10^3/uL (4.0-10.5)
[2019-03-31 09:10] LABS: HEMOGLOBIN 7.5 g/dL (13.5-17.0)
[2019-03-31 09:15] LABS: ANION GAP 13 (5-19); BLOOD UREA NITROGEN 28 mg/dL (7-20); CALCIUM 8.4 mg/dL (8.4-10.2); CARBON DIOXIDE 17 mmol/L (22-30); CHLORIDE 99 mmol/L (98-107); GLUCOSE 302 mg/dL (75-110)
[2019-03-31] MEDS: DOCUSATE SODIUM 100 MG CAPSULE PO SCH (09:30)
[2019-03-31] MEDS: INSULIN LISPRO 100 UNIT/ML 3 ML VIAL SUBCUT SCH ×4 (09:35→22:07)
[2019-03-31] MEDS: AMLODIPINE BESYLATE 5 MG TABLET PO SCH (09:36)
[2019-03-31] MEDS: CETIRIZINE 10 MG TABLET PO SCH (09:36)
[2019-03-31] MEDS: ENOXAPARIN SODIUM INJ 30 MG/0.3 ML DISP.SYRIN SUBCUT SCH (09:36)
[2019-03-31] MEDS: LOSARTAN POTASSIUM 25 MG TABLET PO SCH ×2 (09:37→22:06)
[2019-03-31] MEDS: CLOPIDOGREL BISULFATE 75 MG TABLET PO SCH ×2 (09:38→17:25)
[2019-03-31] MEDS: TAMSULOSIN HCL 0.4 MG CAP.SR.24H PO SCH (09:38)
[2019-03-31] MEDS: SERTRALINE HCL 50 MG TABLET PO SCH (09:38)
[2019-03-31] MEDS: FUROSEMIDE 20 MG TABLET PO SCH (09:38)
[2019-03-31] MEDS: METOPROLOL SUCCINATE 25 MG TAB.SR.24H PO SCH ×2 (09:38→22:06)
[2019-03-31] MEDS ORDERED: INSULIN LISPRO 100 UNIT/ML 3 ML VIAL ONE (11:08)
[2019-03-31 11:15] LABS: INTERNATIONAL RATION (INR) 1.21; PROTHROMBIN TIME 15.4 SEC (11.4-15.4)
[2019-03-31] MEDS: ISOSORBIDE MONONITRATE 60 MG TAB.ER.24H PO SCH (11:20)
--- NOTE | 2019-03-31 11:38 | EKG REPORT ---
SEVERITY:- ABNORMAL ECG - SINUS TACHYCARDIA NONSPECIFIC INTRAVENTRICULAR CONDUCTION DELAY BORDERLINE INFERIOR Q WAVES MINIMAL ST DEPRESSION, LATERAL LEADS : Confirmed by: Pavel Alcocer 31-Mar-2019 11:37:00
[2019-03-31 11:43] LABS: CREATINE KINASE MB 1.36 ng/mL (<4.55); TROPONIN I 0.301 ng/mL
[2019-03-31] MEDS: LEVOFLOXACIN 750 MG/D5W RTU 750 MG/150 ML RTUPB IV SCH (13:36)
--- NOTE | 2019-03-31 15:17 | PDOC PROGRESS REPORT ---
Subjective Progress Note for:: 03/31/19 Reason For Visit: STEMI Patient admitted to the hospital on 26 March for right hip pain secondary to a fall that resulted in impacted fracture of the right femoral neck Physical Exam Vital Signs: Temp Pulse Resp BP Pulse Ox 97.8 F 104 H 24 H 133/66 H 94 03/31/19 11:55 03/31/19 14:00 03/31/19 11:55 03/31/19 11:55 03/31/19 11:55 Intake & Output 03/30/19 03/31/19 04/01/19 06:59 06:59 06:59 Intake Total 1901 2422 540 Output Total 1250 1900 Balance 651 522 540 Weight 165.1 kg 93.8 kg General appearance: PRESENT: no acute distress Respiratory exam: PRESENT: clear to auscultation blank. ABSENT: rales, rhonchi, wheezes Cardiovascular exam: PRESENT: RRR. ABSENT: diastolic murmur, rubs, systolic murmur Neurological exam: PRESENT: alert, awake, oriented to person, oriented to place, oriented to time, oriented to situation, CN II-XII grossly intact. ABSENT: motor sensory deficit Psychiatric exam: PRESENT: appropriate affect, normal mood. ABSENT: homicidal ideation, suicidal ideation Results Laboratory Results: 03/31/19 05:20 03/31/19 05:20 03/30/19 03/30/19 03/31/19 06:46 17:23 05:20 WBC RBC Hgb Hct MCV MCH MCHC RDW Plt Count Seg Neutrophils % Sodium Potassium Chloride Carbon Dioxide Anion Gap BUN Creatinine Est GFR ( Amer) Glucose Serum Osmolality 281 Calcium Urine Osmolality 523 Blood Type B NEGATIVE Antibody Screen NEGATIVE 03/31/19 03/31/19 05:20 05:20 WBC 13.1 H RBC 2.55 L Hgb 7.5 L Hct 22.6 L MCV 89 MCH 29.2 MCHC 32.9 RDW 14.0 Plt Count 331 Seg Neutrophils % 81.2 H Sodium 129.1 L Potassium 5.0 Chloride 99 Carbon Dioxide 17 L Anion Gap 13 BUN 28 H Creatinine 1.48 H Est GFR ( Amer) 56 L Glucose 302 H Serum Osmolality Calcium 8.4 Urine Osmolality Blood Type Antibody Screen 03/26/19 03/26/19 03/31/19 07:06 07:06 03:31 Creatine Kinase 127 164 CK-MB (CK-2) Troponin I < 0.012 03/31/19 03/31/19 03/31/19 03:31 05:20 05:20 Creatine Kinase 162 CK-MB (CK-2) 1.03 1.23 Troponin I 0.342 0.376 03/31/19 03/31/19 10:39 10:39 Creatine Kinase 157 CK-MB (CK-2) 1.36 Troponin I 0.301 Impressions: Shoulder X-Ray 03/26/19 00:00 IMPRESSION: NEGATIVE STUDY OF THE RIGHT SHOULDER. NO RADIOGRAPHIC EVIDENCE OF ACUTE INJURY. Cervical Spine CT 03/26/19 11:43 IMPRESSION: CHRONIC DEGENERATIVE CHANGES. NO ACUTE FINDINGS. Lower Extremity CT 03/26/19 11:43 IMPRESSION: IMPACTED FRACTURE OF THE RIGHT FEMORAL NECK. Fluoroscopy 03/27/19 00:00 IMPRESSION: IMAGE(S) OBTAINED DURING PROCEDURE. Hip/Pelvis X-Ray 03/27/19 00:00 IMPRESSION: IMAGE(S) OBTAINED DURING PROCEDURE. Assessment and Plan - Diagnosis (1) Closed displaced fracture of right femoral neck Is this a current diagnosis for this admission?: Yes (2) Shoulder contusion Qualifiers: Encounter type: initial encounter Laterality: right Qualified Code(s): S40.011A - Contusion of right shoulder, initial encounter Is this a current diagnosis for this admission?: Yes (3) CAD (coronary artery disease) Qualifiers: Coronary Disease-Associated Artery/Lesion type: [place] artery [place] vs. transplanted heart: [place] heart Associated angina: with stable angina Qualified Code(s): I25.118 - Atherosclerotic heart disease of [place] coronary artery with other forms of angina pectoris Is this a current diagnosis for this admission?: Yes (4) Hypertension Qualifiers: Hypertension type: essential hypertension Qualified Code(s): I10 - Essential (primary) hypertension Is this a current diagnosis for this admission?: Yes (5) Elevated troponin Is this a current diagnosis for this admission?: Yes - Plan Summary Summary: 03/31/2019 Temperature 97.6 pulse 100 blood pressure 122/67 oxygen saturation 93% on 3 L nasal cannula Chest x-ray shows probable edema left lower lobe Patient underwent a hip pinning on 03/26 he is postop day #5. He working with physical therapy. Weight bearing as tolerated On 213 on admission his troponin was normal however early this morning troponin was elevated at 0.342 then it went up to .376 and most recently is started trending down to 0.301. CK-MB indexes are normal. Patient is currently on Plavix, aspirin, Lovenox, well as nitrates and beta-blockers. I will order a st atin Patient is also currently on antibiotics Cardiology has seen the patient and ordered a cardiac study rule out ischemia. The patient is a high risk for any type of catheterization or stenting process. Patient is not having any chest pain. Will follow cardiology's recommendations. Continue physical therapy as tolerated. - Time Time Spent with patient: 35 or more minutes
--- NOTE | 2019-03-31 17:12 | PDOC PROGRESS REPORT ---
Subjective Progress Note for:: 03/31/19 Subjective:: Patient lying in bed comfortably. Patient states pain is currently controlled. Patient had episode of chest pain this morning but no issues since then according to the nursing staff. Reason For Visit: STEMI Physical Exam Vital Signs: Temp Pulse Resp BP Pulse Ox 97.8 F 104 H 24 H 133/66 H 94 03/31/19 11:55 03/31/19 14:00 03/31/19 11:55 03/31/19 11:55 03/31/19 11:55 Intake & Output 03/30/19 03/31/19 04/01/19 06:59 06:59 06:59 Intake Total 1901 2422 540 Output Total 1250 1900 Balance 651 522 540 Weight 165.1 kg 93.8 kg Musculoskeletal exam: PRESENT: other - Right hip: Dressing clean/dry/intact no erythema or drainage. Moderate thigh swelling without change, intact plantarflexion/dorsiflexion. No sensory deficits. No calf tenderness. Neurological exam: PRESENT: alert, awake Results Laboratory Results: 03/31/19 05:20 03/31/19 05:20 03/30/19 03/31/19 03/31/19 17:23 05:20 05:20 WBC RBC Hgb Hct MCV MCH MCHC RDW Plt Count Seg Neutrophils % Sodium 129.1 L Potassium 5.0 Chloride 99 Carbon Dioxide 17 L Anion Gap 13 BUN 28 H Creatinine 1.48 H Est GFR ( Amer) 56 L Glucose 302 H Calcium 8.4 Urine Osmolality 523 Blood Type B NEGATIVE Antibody Screen NEGATIVE 03/31/19 05:20 WBC 13.1 H RBC 2.55 L Hgb 7.5 L Hct 22.6 L MCV 89 MCH 29.2 MCHC 32.9 RDW 14.0 Plt Count 331 Seg Neutrophils % 81.2 H Sodium Potassium Chloride Carbon Dioxide Anion Gap BUN Creatinine Est GFR ( Amer) Glucose Calcium Urine Osmolality Blood Type Antibody Screen 03/26/19 03/26/19 03/31/19 07:06 07:06 03:31 Creatine Kinase 127 164 CK-MB (CK-2) Troponin I < 0.012 03/31/19 03/31/19 03/31/19 03:31 05:20 05:20 Creatine Kinase 162 CK-MB (CK-2) 1.03 1.23 Troponin I 0.342 0.376 03/31/19 03/31/19 10:39 10:39 Creatine Kinase 157 CK-MB (CK-2) 1.36 Troponin I 0.301 Impressions: Shoulder X-Ray 03/26/19 00:00 IMPRESSION: NEGATIVE STUDY OF THE RIGHT SHOULDER. NO RADIOGRAPHIC EVIDENCE OF ACUTE INJURY. Cervical Spine CT 03/26/19 11:43 IMPRESSION: CHRONIC DEGENERATIVE CHANGES. NO ACUTE FINDINGS. Lower Extremity CT 03/26/19 11:43 IMPRESSION: IMPACTED FRACTURE OF THE RIGHT FEMORAL NECK. Fluoroscopy 03/27/19 00:00 IMPRESSION: IMAGE(S) OBTAINED DURING PROCEDURE. Hip/Pelvis X-Ray 03/27/19 00:00 IMPRESSION: IMAGE(S) OBTAINED DURING PROCEDURE. Assessment & Plan - Diagnosis (1) Closed displaced fracture of right femoral neck Is this a current diagnosis for this admission?: Yes Plan: Status post closed reduction percutaneous pinning right femoral neck fracture 1. Physical therapy with partial weightbearing 2. Pain control 3. DVT prophylaxis at discretion of the hospitalist. 4. Patient follow-up in the office as an outpatient in 2 weeks for wound check. - Time Time Spent with patient: Less than 15 minutes
[2019-03-31] MEDS: PATIROMER 8.4 GM SUSP PACKET PO SCH (17:25)
[2019-03-31 17:26] LABS: CREATINE KINASE MB 1.31 ng/mL (<4.55); TROPONIN I 0.323 ng/mL
--- NOTE | 2019-03-31 18:48 | EKG REPORT ---
SEVERITY:- ABNORMAL ECG - SINUS RHYTHM NONSPECIFIC INTRAVENTRICULAR CONDUCTION DELAY BORDERLINE INFERIOR Q WAVES : Confirmed by: Pavel Alcocer 31-Mar-2019 18:47:11
--- NOTE | 2019-03-31 19:12 | PDOC CONSULTATION ---
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 CK-MB (CK-2) Troponin I Total Protein Albumin Urine Color Urine Appearance Urine pH Ur Specific [place] Urine Protein Urine Glucose (UA) Urine Ketones Urine Blood Urine Nitrite Urine Bilirubin Urine Urobilinogen Ur Leukocyte Esterase Urine WBC (Auto) Urine RBC (Auto) U Hyaline Cast (Auto) Squamous Epi Cells Auto Urine Mucus (Auto) Urine Osmolality Urine Sodium Urine Ascorbic Acid Blood Type Blood Type Confirm Antibody Screen Crossmatch 03/29/19 03/29/19 03/29/19 05:40 06:34 11:27 WBC RBC Hgb Hct MCV MCH MCHC RDW Plt Count Lymph % (Auto) [place] % (Auto) Eos % (Auto) Baso % (Auto) Absolute Neuts (auto) Absolute Lymphs (auto) Absolute Monos (auto) Absolute Eos (auto) Absolute Basos (auto) Seg Neutrophils % PT INR APTT Sodium Potassium Chloride Carbon Dioxide Anion Gap BUN Creatinine Est GFR ( Amer) Est GFR (MDRD) Non-Af Glucose POC Glucose 344 H 370 H Hemoglobin A1c % 7.4 H Serum Osmolality Calcium Total Bilirubin Direct Bilirubin Neonat Total Bilirubin Neonat Direct Bilirubin Neonat Indirect Bili AST ALT Alkaline Phosphatase Creatine Kinase CK-MB (CK-2) Troponin I Total Protein Albumin Urine Color Urine Appearance Urine pH Ur Specific [place] Urine Protein Urine Glucose (UA) Urine Ketones Urine Blood Urine Nitrite Urine Bilirubin Urine Urobilinogen Ur Leukocyte Esterase Urine WBC (Auto) Urine RBC (Auto) U Hyaline Cast (Auto) Squamous Epi Cells Auto Urine Mucus (Auto) Urine Osmolality Urine Sodium Urine Ascorbic Acid Blood Type Blood Type Confirm Antibody Screen Crossmatch 03/29/19 03/29/19 03/30/19 15:53 22:02 06:46 WBC 11.3 H RBC 2.53 L Hgb 7.5 L Hct 22.4 L MCV 89 MCH 29.6 MCHC 33.4 RDW 13.8 Plt Count 271 Lymph % (Auto) [place] % (Auto) Eos % (Auto) Baso % (Auto) Absolute Neuts (auto) Absolute Lymphs (auto) Absolute Monos (auto) Absolute Eos (auto) Absolute Basos (auto) Seg Neutrophils % PT INR APTT Sodium Potassium Chloride Carbon Dioxide Anion Gap BUN Creatinine Est GFR ( Amer) Est GFR (MDRD) Non-Af Glucose POC Glucose 345 H 271 H Hemoglobin A1c % Serum Osmolality Calcium Total Bilirubin Direct Bilirubin Neonat Total Bilirubin Neonat Direct Bilirubin Neonat Indirect Bili AST ALT Alkaline Phosphatase Creatine Kinase CK-MB (CK-2) Troponin I Total Protein Albumin Urine Color Urine Appearance Urine pH Ur Specific [place] Urine Protein Urine Glucose (UA) Urine Ketones Urine Blood Urine Nitrite Urine Bilirubin Urine Urobilinogen Ur Leukocyte Esterase Urine WBC (Auto) Urine RBC (Auto) U Hyaline Cast (Auto) Squamous Epi Cells Auto Urine Mucus (Auto) Urine Osmolality Urine Sodium Urine Ascorbic Acid Blood Type Blood Type Confirm Antibody Screen Crossmatch 03/30/19 03/30/19 03/30/19 06:46 06:46 06:51 WBC RBC Hgb Hct MCV MCH MCHC RDW Plt Count Lymph % (Auto) [place] % (Auto) Eos % (Auto) Baso % (Auto) Absolute Neuts (auto) Absolute Lymphs (auto) Absolute Monos (auto) Absolute Eos (auto) Absolute Basos (auto) Seg Neutrophils % PT INR APTT Sodium 129.8 L Potassium 5.1 H Chloride 100 Carbon Dioxide 19 L Anion Gap 11 BUN 23 H Creatinine 1.43 H Est GFR ( Amer) 58 L Est GFR (MDRD) Non-Af 48 L Glucose 290 H POC Glucose 322 H Hemoglobin A1c % Serum Osmolality 281 Calcium 8.2 L Total Bilirubin Direct Bilirubin Neonat Total Bilirubin Neonat Direct Bilirubin Neonat Indirect Bili AST ALT Alkaline Phosphatase Creatine Kinase CK-MB (CK-2) Troponin I Total Protein Albumin Urine Color Urine Appearance Urine pH Ur Specific [place] Urine Protein Urine Glucose (UA) Urine Ketones Urine Blood Urine Nitrite Urine Bilirubin Urine Urobilinogen Ur Leukocyte Esterase Urine WBC (Auto) Urine RBC (Auto) U Hyaline Cast (Auto) Squamous Epi Cells Auto Urine Mucus (Auto) Urine Osmolality Urine Sodium Urine Ascorbic Acid Blood Type Blood Type Confirm Antibody Screen Crossmatch 03/30/19 03/30/19 03/30/19 10:54 12:53 15:49 WBC 15.2 H RBC 2.99 L Hgb 8.8 L Hct 26.7 L MCV 89 MCH 29.3 MCHC 32.8 RDW 13.8 Plt Count 339 Lymph % (Auto) [place] % (Auto) Eos % (Auto) Baso % (Auto) Absolute Neuts (auto) Absolute Lymphs (auto) Absolute Monos (auto) Absolute Eos (auto) Absolute Basos (auto) Seg Neutrophils % PT INR APTT Sodium Potassium Chloride Carbon Dioxide Anion Gap BUN Creatinine Est GFR ( Amer) Est GFR (MDRD) Non-Af Glucose POC Glucose 377 H 341 H Hemoglobin A1c % Serum Osmolality Calcium Total Bilirubin Direct Bilirubin Neonat Total Bilirubin Neonat Direct Bilirubin Neonat Indirect Bili AST ALT Alkaline Phosphatase Creatine Kinase CK-MB (CK-2) Troponin I Total Protein Albumin Urine Color Urine Appearance Urine pH Ur Specific [place] Urine Protein Urine Glucose (UA) Urine Ketones Urine Blood Urine Nitrite Urine Bilirubin Urine Urobilinogen Ur Leukocyte Esterase Urine WBC (Auto) Urine RBC (Auto) U Hyaline Cast (Auto) Squamous Epi Cells Auto Urine Mucus (Auto) Urine Osmolality Urine Sodium Urine Ascorbic Acid Blood Type Blood Type Confirm Antibody Screen Crossmatch 03/30/19 03/30/19 03/31/19 17:23 21:07 03:31 WBC RBC Hgb Hct MCV MCH MCHC RDW Plt Count Lymph % (Auto) [place] % (Auto) Eos % (Auto) Baso % (Auto) Absolute Neuts (auto) Absolute Lymphs (auto) Absolute Monos (auto) Absolute Eos (auto) Absolute Basos (auto) Seg Neutrophils % PT INR APTT Sodium Potassium Chloride Carbon Dioxide Anion Gap BUN Creatinine Est GFR ( Amer) Est GFR (MDRD) Non-Af Glucose POC Glucose 353 H Hemoglobin A1c % Serum Osmolality Calcium Total Bilirubin Direct Bilirubin Neonat Total Bilirubin Neonat Direct Bilirubin Neonat Indirect Bili AST ALT Alkaline Phosphatase Creatine Kinase 164 CK-MB (CK-2) Troponin I Total Protein Albumin Urine Color Urine Appearance Urine pH Ur Specific [place] Urine Protein Urine Glucose (UA) Urine Ketones Urine Blood Urine Nitrite Urine Bilirubin Urine Urobilinogen Ur Leukocyte Esterase Urine WBC (Auto) Urine RBC (Auto) U Hyaline Cast (Auto) Squamous Epi Cells Auto Urine Mucus (Auto) Urine Osmolality 523 Urine Sodium 55 Urine Ascorbic Acid Blood Type Blood Type Confirm Antibody Screen Crossmatch 03/31/19 03/31/19 03/31/19 03:31 05:20 05:20 WBC RBC Hgb Hct MCV MCH MCHC RDW Plt Count Lymph % (Auto) [place] % (Auto) Eos % (Auto) Baso % (Auto) Absolute Neuts (auto) Absolute Lymphs (auto) Absolute Monos (auto) Absolute Eos (auto) Absolute Basos (auto) Seg Neutrophils % PT INR APTT Sodium Potassium Chloride Carbon Dioxide Anion Gap BUN Creatinine Est GFR ( Amer) Est GFR (MDRD) Non-Af Glucose POC Glucose Hemoglobin A1c % Serum Osmolality Calcium Total Bilirubin Direct Bilirubin Neonat Total Bilirubin Neonat Direct Bilirubin Neonat Indirect Bili AST ALT Alkaline Phosphatase Creatine Kinase 162 CK-MB (CK-2) 1.03 Troponin I 0.342 Total Protein Albumin Urine Color Urine Appearance Urine pH Ur Specific [place] Urine Protein Urine Glucose (UA) Urine Ketones Urine Blood Urine Nitrite Urine Bilirubin Urine Urobilinogen Ur Leukocyte Esterase Urine WBC (Auto) Urine RBC (Auto) U Hyaline Cast (Auto) Squamous Epi Cells Auto Urine Mucus (Auto) Urine Osmolality Urine Sodium Urine Ascorbic Acid Blood Type B NEGATIVE Blood Type Confirm Antibody Screen NEGATIVE Crossmatch See Detail 03/31/19 03/31/19 03/31/19 05:20 05:20 05:20 WBC 13.1 H RBC 2.55 L Hgb 7.5 L Hct 22.6 L MCV 89 MCH 29.2 MCHC 32.9 RDW 14.0 Plt Count 331 Lymph % (Auto) 8.3 L [place] % (Auto) 10.2 Eos % (Auto) 0.1 Baso % (Auto) 0.2 Absolute Neuts (auto) 10.6 H Absolute Lymphs (auto) 1.1 Absolute Monos (auto) 1.3 Absolute Eos (auto) 0.0 Absolute Basos (auto) 0.0 Seg Neutrophils % 81.2 H PT INR APTT Sodium 129.1 L Potassium 5.0 Chloride 99 Carbon Dioxide 17 L Anion Gap 13 BUN 28 H Creatinine 1.48 H Est GFR ( Amer) 56 L Est GFR (MDRD) Non-Af 46 L Glucose 302 H POC Glucose Hemoglobin A1c % Serum Osmolality Calcium 8.4 Total Bilirubin Direct Bilirubin Neonat Total Bilirubin Neonat Direct Bilirubin Neonat Indirect Bili AST ALT Alkaline Phosphatase Creatine Kinase CK-MB (CK-2) 1.23 Troponin I 0.376 Total Protein Albumin Urine Color Urine Appearance Urine pH Ur Specific [place] Urine Protein Urine Glucose (UA) Urine Ketones Urine Blood Urine Nitrite Urine Bilirubin Urine Urobilinogen Ur Leukocyte Esterase Urine WBC (Auto) Urine RBC (Auto) U Hyaline Cast (Auto) Squamous Epi Cells Auto Urine Mucus (Auto) Urine Osmolality Urine Sodium Urine Ascorbic Acid Blood Type Blood Type Confirm Antibody Screen Crossmatch 03/31/19 03/31/19 03/31/19 05:25 05:48 07:31 WBC RBC Hgb Hct MCV MCH MCHC RDW Plt Count Lymph % (Auto) [place] % (Auto) Eos % (Auto) Baso % (Auto) Absolute Neuts (auto) Absolute Lymphs (auto) Absolute Monos (auto) Absolute Eos (auto) Absolute Basos (auto) Seg Neutrophils % PT INR APTT Sodium Potassium Chloride Carbon Dioxide Anion Gap BUN Creatinine Est GFR ( Amer) Est GFR (MDRD) Non-Af Glucose POC Glucose 361 H 325 H Hemoglobin A1c % Serum Osmolality Calcium Total Bilirubin Direct Bilirubin Neonat Total Bilirubin Neonat Direct Bilirubin Neonat Indirect Bili AST ALT Alkaline Phosphatase Creatine Kinase CK-MB (CK-2) Troponin I Total Protein Albumin Urine Color Urine Appearance Urine pH Ur Specific [place] Urine Protein Urine Glucose (UA) Urine Ketones Urine Blood Urine Nitrite Urine Bilirubin Urine Urobilinogen Ur Leukocyte Esterase Urine WBC (Auto) Urine RBC (Auto) U Hyaline Cast (Auto) Squamous Epi Cells Auto Urine Mucus (Auto) Urine Osmolality Urine Sodium Urine Ascorbic Acid Blood Type Blood Type Confirm B NEGATIVE Antibody Screen Crossmatch 03/31/19 03/31/19 03/31/19 10:39 10:39 10:39 WBC RBC Hgb Hct MCV MCH MCHC RDW Plt Count Lymph % (Auto) [place] % (Auto) Eos % (Auto) Baso % (Auto) Absolute Neuts (auto) Absolute Lymphs (auto) Absolute Monos (auto) Absolute Eos (auto) Absolute Basos (auto) Seg Neutrophils % PT 15.4 INR 1.21 APTT 32.0 Sodium Potassium Chloride Carbon Dioxide Anion Gap BUN Creatinine Est GFR ( Amer) Est GFR (MDRD) Non-Af Glucose POC Glucose Hemoglobin A1c % Serum Osmolality Calcium Total Bilirubin Direct Bilirubin Neonat Total Bilirubin Neonat Direct Bilirubin Neonat Indirect Bili AST ALT Alkaline Phosphatase Creatine Kinase 157 CK-MB (CK-2) 1.36 Troponin I 0.301 Total Protein Albumin Urine Color Urine Appearance Urine pH Ur Specific [place] Urine Protein Urine Glucose (UA) Urine Ketones Urine Blood Urine Nitrite Urine Bilirubin Urine Urobilinogen Ur Leukocyte Esterase Urine WBC (Auto) Urine RBC (Auto) U Hyaline Cast (Auto) Squamous Epi Cells Auto Urine Mucus (Auto) Urine Osmolality Urine Sodium Urine Ascorbic Acid Blood Type Blood Type Confirm Antibody Screen Crossmatch 03/31/19 03/31/19 03/31/19 10:59 15:42 16:38 WBC RBC Hgb Hct MCV MCH MCHC RDW Plt Count Lymph % (Auto) [place] % (Auto) Eos % (Auto) Baso % (Auto) Absolute Neuts (auto) Absolute Lymphs (auto) Absolute Monos (auto) Absolute Eos (auto) Absolute Basos (auto) Seg Neutrophils % PT INR APTT Sodium Potassium Chloride Carbon Dioxide Anion Gap BUN Creatinine Est GFR ( Amer) Est GFR (MDRD) Non-Af Glucose POC Glucose 329 H 298 H Hemoglobin A1c % Serum Osmolality Calcium Total Bilirubin Direct Bilirubin Neonat Total Bilirubin Neonat Direct Bilirubin Neonat Indirect Bili AST ALT Alkaline Phosphatase Creatine Kinase 115 CK-MB (CK-2) Troponin I Total Protein Albumin Urine Color Urine Appearance Urine pH Ur Specific [place] Urine Protein Urine Glucose (UA) Urine Ketones Urine Blood Urine Nitrite Urine Bilirubin Urine Urobilinogen Ur Leukocyte Esterase Urine WBC (Auto) Urine RBC (Auto) U Hyaline Cast (Auto) Squamous Epi Cells Auto Urine Mucus (Auto) Urine Osmolality Urine Sodium Urine Ascorbic Acid Blood Type Blood Type Confirm Antibody Screen Crossmatch 03/31/19 16:38 WBC RBC Hgb Hct MCV MCH MCHC RDW Plt Count Lymph % (Auto) [place] % (Auto) Eos % (Auto) Baso % (Auto) Absolute Neuts (auto) Absolute Lymphs (auto) Absolute Monos (auto) Absolute Eos (auto) Absolute Basos (auto) Seg Neutrophils % PT INR APTT Sodium Potassium Chloride Carbon Dioxide Anion Gap BUN Creatinine Est GFR ( Amer) Est GFR (MDRD) Non-Af Glucose POC Glucose Hemoglobin A1c % Serum Osmolality Calcium Total Bilirubin Direct Bilirubin Neonat Total Bilirubin Neonat Direct Bilirubin Neonat Indirect Bili AST ALT Alkaline Phosphatase Creatine Kinase CK-MB (CK-2) 1.31 Troponin I 0.323 Total Protein Albumin Urine Color Urine Appearance Urine pH Ur Specific [place] Urine Protein Urine Glucose (UA) Urine Ketones Urine Blood Urine Nitrite Urine Bilirubin Urine Urobilinogen Ur Leukocyte Esterase Urine WBC (Auto) Urine RBC (Auto) U Hyaline Cast (Auto) Squamous Epi Cells Auto Urine Mucus (Auto) Urine Osmolality Urine Sodium Urine Ascorbic Acid Blood Type Blood Type Confirm Antibody Screen Crossmatch Hip/Pelvis X-Ray 03/26/19 00:00 IMPRESSION: MILD IRREGULARITY OF THE RIGHT FEMORAL NECK, SUSPICIOUS FOR MINIMALLY DISPLACED FRACTURE. Shoulder X-Ray 03/26/19 00:00 IMPRESSION: NEGATIVE STUDY OF THE RIGHT SHOULDER. NO RADIOGRAPHIC EVIDENCE OF ACUTE INJURY. Cervical Spine CT 03/26/19 11:43 IMPRESSION: CHRONIC DEGENERATIVE CHANGES. NO ACUTE FINDINGS. Lower Extremity CT 03/26/19 11:43 IMPRESSION: IMPACTED FRACTURE OF THE RIGHT FEMORAL NECK. Chest X-Ray 03/26/19 14:13 IMPRESSION: Borderline cardiomegaly without pulmonary edema. Fluoroscopy 03/27/19 00:00 IMPRESSION: IMAGE(S) OBTAINED DURING PROCEDURE. Hip/Pelvis X-Ray 03/27/19 00:00 IMPRESSION: IMAGE(S) OBTAINED DURING PROCEDURE. Chest X-Ray 03/29/19 00:00 IMPRESSION: CHRONIC INTERSTITIAL CHANGES. POSSIBLE DEVELOPING INFILTRATE/ PNEUMONIA IN THE RIGHT UPPER LOBE. SIMILAR FINDING IN THE LEFT COSTOPHRENIC ANGLE. EKG: Shows sinus tachycardia. Nonspecific IVCD. Diffuse minor nonspecific nondiagnostic ST-T changes. IMPRESSION/RECOMMENDATION: 1. Elevated troponin I: This is a type II supply demand mismatch [place] secondary to the patient's acute anemia, acute renal insufficiency and pneumonia. No definite evidence of non-ST elevation AK. Hence we will treat underlying causs 2. Bibasilar pneumonia: Continue antibiotics. 3. Acute anemia: Most likely secondary to the patient's hip surgery/hip fracture. Agree with blood transfusion to keep the hemoglobin 10 or above. 4. Coronary artery disease and history of old myocardial infarction: No evidence of angina. No definite evidence of nondistention AK. Continue current anti-CAD medication. Hence would increase long-acting beta-khanh to 25 mg p.o. twice daily and also increase losartan to 25 mg p.o. every 12 hours.. Continue aspirin and isosorbide mononitrate. The patient also is on Plavix would continue this. 5. Cardiomyopathy with moderately reduced LV ejection fraction: Seems to be compensated no overt evidence of congestive heart failure. 6. Hypertension: Blood pressure is well controlled continue current medications. 7. Mild acute renal failure. This should improve 8. Diabetes mellitus type 2 [id number]. 9. Status post surgery for right fracture due to accidental falls. Note that the patient's physical and comorbidities make him a very high risk candidate for any interventional or aggressive cardiac approaches. Hence would not recommend cardiac catheterization or percutaneous intervention. Would recommend maximizing the patient's anti-CAD medication. Also would treat the patient's cardiomyopathy. With the hydralazine and Toprol-XL. Discussed the patient's nuclear scan findings with the patient. Try to contact the patient's but no answer. Will try to get in touch with her later on. Medications reviewed. Medical regimen and management plan discussed with attending provider on the case. Medical decision making is of high complexity. Will follow.
[2019-03-31] MEDS: INSULIN GLARGINE,HUM.REC.ANLOG 1,000 UNIT/10 ML VIAL SUBCUT SCH (22:08)
[2019-03-31] MEDS: ATORVASTATIN CALCIUM 20 MG TABLET PO SCH (22:09)
[2019-04-01] MEDS: IPRATROPIUM/ALBUTEROL 0.5-2.5 MG/3 ML AMPUL NEB SCH ×3 (00:01→17:51)
[2019-04-01] MEDS: NORMAL SALINE 1000 ML 1,000 ML IV PRN ×2 (01:54→19:51)
[2019-04-01] MEDS: OXYCODONE-ACETAMINOPHEN 5-325 MG TABLET PO PRN (03:00)
[2019-04-01] MEDS: LEVALBUTEROL HCL NEB 0.63 MG/3 ML AMPUL NEB PRN (04:15)
[2019-04-01] MEDS: PANTOPRAZOLE SODIUM 40 MG TABLET.DR PO SCH (06:55)
[2019-04-01] MEDS: CEFEPIME HCL 2 GM in DEXTROSE 5%-WATER 50 ML IV SCH ×2 (06:55→17:43)
[2019-04-01] MEDS ORDERED: FUROSEMIDE INJ/PF 40 MG/4 ML SDV ONE (08:21)
[2019-04-01] MEDS: INSULIN LISPRO 100 UNIT/ML 3 ML VIAL SUBCUT SCH ×4 (08:26→22:52)
[2019-04-01] MEDS: AMLODIPINE BESYLATE 5 MG TABLET PO SCH (10:39)
[2019-04-01] MEDS: ASPIRIN 81 MG TABLET, CHEWABLE PO SCH (10:39)
[2019-04-01] MEDS: SERTRALINE HCL 50 MG TABLET PO SCH (10:40)
[2019-04-01] MEDS: CLOPIDOGREL BISULFATE 75 MG TABLET PO SCH ×2 (10:40→17:43)
[2019-04-01] MEDS: METOPROLOL SUCCINATE 25 MG TAB.SR.24H PO SCH ×2 (10:40→22:52)
[2019-04-01] MEDS: FUROSEMIDE 20 MG TABLET PO SCH ×2 (10:40→17:43)
[2019-04-01] MEDS: CETIRIZINE 10 MG TABLET PO SCH (10:40)
[2019-04-01] MEDS: LEVOFLOXACIN 750 MG TABLET PO SCH (10:40)
[2019-04-01] MEDS: TAMSULOSIN HCL 0.4 MG CAP.SR.24H PO SCH (10:40)
[2019-04-01] MEDS: DOCUSATE SODIUM 100 MG CAPSULE PO SCH (10:40)
[2019-04-01] MEDS: LOSARTAN POTASSIUM 25 MG TABLET PO SCH ×2 (10:41→22:52)
[2019-04-01] MEDS: ISOSORBIDE MONONITRATE 60 MG TAB.ER.24H PO SCH (10:41)
[2019-04-01] MEDS: ENOXAPARIN SODIUM INJ 30 MG/0.3 ML DISP.SYRIN SUBCUT SCH (10:42)
--- NOTE | 2019-04-01 11:41 | PDOC PROGRESS REPORT ---
Subjective Progress Note for:: 04/01/19 Reason For Visit: STEMI 04/01/2019 Admitted to the hospital for right hip pain secondary to fracture of the right femoral neck. Patient has since admission developed probable pneumonia currently on cefepime and Levaquin Physical Exam Vital Signs: Temp Pulse Resp BP Pulse Ox 97.9 F 103 H 18 151/66 H 86 L 04/01/19 06:59 04/01/19 08:27 04/01/19 08:27 04/01/19 06:59 04/01/19 08:27 Intake & Output 03/31/19 04/01/19 04/02/19 06:59 06:59 06:59 Intake Total 2422 1590 50 Output Total 1900 375 Balance 522 1215 50 Weight 93.8 kg 96 kg General appearance: PRESENT: no acute distress, other - Patient seems confused at times Respiratory exam: PRESENT: rales - Primarily both bases Cardiovascular exam: PRESENT: RRR. ABSENT: diastolic murmur, rubs, systolic murmur Extremities exam: PRESENT: other - No peripheral edema Neurological exam: PRESENT: alert, awake, oriented to person, oriented to place, oriented to time, oriented to situation, CN II-XII grossly intact. ABSENT: motor sensory deficit Psychiatric exam: PRESENT: unusual affect, other - Complaining of being in the hospital Results Laboratory Results: 03/31/19 05:20 03/31/19 05:20 03/26/19 03/26/19 03/31/19 07:06 07:06 03:31 Creatine Kinase 127 164 CK-MB (CK-2) Troponin I < 0.012 03/31/19 03/31/19 03/31/19 03:31 05:20 05:20 Creatine Kinase 162 CK-MB (CK-2) 1.03 1.23 Troponin I 0.342 0.376 03/31/19 03/31/19 03/31/19 10:39 10:39 16:38 Creatine Kinase 157 115 CK-MB (CK-2) 1.36 Troponin I 0.301 03/31/19 16:38 Creatine Kinase CK-MB (CK-2) 1.31 Troponin I 0.323 Impressions: Shoulder X-Ray 03/26/19 00:00 IMPRESSION: NEGATIVE STUDY OF THE RIGHT SHOULDER. NO RADIOGRAPHIC EVIDENCE OF ACUTE INJURY. Cervical Spine CT 03/26/19 11:43 IMPRESSION: CHRONIC DEGENERATIVE CHANGES. NO ACUTE FINDINGS. Lower Extremity CT 03/26/19 11:43 IMPRESSION: IMPACTED FRACTURE OF THE RIGHT FEMORAL NECK. Fluoroscopy 03/27/19 00:00 IMPRESSION: IMAGE(S) OBTAINED DURING PROCEDURE. Hip/Pelvis X-Ray 03/27/19 00:00 IMPRESSION: IMAGE(S) OBTAINED DURING PROCEDURE. Assessment and Plan - Diagnosis (1) Closed displaced fracture of right femoral neck Is this a current diagnosis for this admission?: Yes (2) Shoulder contusion Qualifiers: Encounter type: initial encounter Laterality: right Qualified Code(s): S40.011A - Contusion of right shoulder, initial encounter Is this a current diagnosis for this admission?: Yes (3) CAD (coronary artery disease) Qualifiers: Coronary Disease-Associated Artery/Lesion type: [place] artery [place] vs. transplanted heart: [place] heart Associated angina: with stable angina Qualified Code(s): I25.118 - Atherosclerotic heart disease of [place] coronary artery with other forms of angina pectoris Is this a current diagnosis for this admission?: Yes (4) Hypertension Qualifiers: Hypertension type: essential hypertension Qualified Code(s): I10 - Essential (primary) hypertension Is this a current diagnosis for this admission?: Yes (5) Elevated troponin Is this a current diagnosis for this admission?: Yes (6) Pneumonia Is this a current diagnosis for this admission?: Yes - Plan Summary Summary: 03/31/2019 Temperature 97.6 pulse 100 blood pressure 122/67 oxygen saturation 93% on 3 L nasal cannula Chest x-ray shows probable edema left lower lobe Patient underwent a hip pinning on 03/26 he is postop day #5. He working with physical therapy. Weight bearing as tolerated On 213 on admission his troponin was normal however early this morning troponin was elevated at 0.342 then it went up to .376 and most recently is started trending down to 0.301. CK-MB indexes are normal. Patient is currently on Plavix, aspirin, Lovenox, well as nitrates and beta-blockers. I will order a statin Patient is also currently on antibiotics Cardiology has seen the patient and ordered a cardiac study rule out ischemia. The patient is a high risk for any type of catheterization or stenting process. Patient is not having any chest pain. Will follow cardiology's recommendations. Continue physical therapy as tolerated. 04/01/2019 Today's cardiac work-up shows no evidence of acute ischemia secondary to cardiac disease Patient remains afebrile and has had no temperature for 72 hours Heart rate is averaging around 100, however ever since admission his heart rate is been in the mid to upper 90s Patient's oxygen saturations remain in the low 90s, nasal cannula oxygen between 3 and 4 L/min Patient has what sounds to be crackles in both bases but no peripheral edema Glucose levels are still running high, will increase patient's Lantus to 10 units nightly Hest x-ray from yesterday shows increased bilateral opacities, left greater than right Give patient a one-time dose of 40 of Lasix IV and see how much he diuresis from this Still waiting on placement decision - Time Time Spent with patient: 25-34 minutes
[2019-04-01] MEDS: PATIROMER 8.4 GM SUSP PACKET PO SCH (17:43)
[2019-04-01] MEDS: ACETAMINOPHEN 325 MG TABLET PO PRN (19:48)
--- NOTE | 2019-04-01 21:57 | Progress Note ---
Provider Note Provider Note: CARDIOLOGY PROGRESS NOTE by Dr. Chery Meraz on 04/01/2019. SUBJECTIVE: The patient denies any chest pain or discomfort. There is no shortness of breath. There is no leg edema. There is no PND orthopnea. There is no atrial or ventricular arrhythmia seen on the monitor. There is no TIA CVA symptoms. Patient denies cough or sputum production. PHYSICAL EXAMINATION: The patient appears to be chronically ill and is a frail build. Selected Entries 04/01/19 11:40 Temperature 97.8 F Temperature Oral Source Pulse Rate 97 Respiratory 20 Rate Blood Pressure 139/69 H Blood Pressure 92 Mean BP Location Right Arm BP Position Supine Oxygen Flow 4.00 Rate Oxygen Delivery Nasal Cannula Method HEAD: Is atraumatic normocephalic. EYES: Pupils are equal round regular reactive to light accommodation. Extraocular movements are normal. The patient's conjunctiva shows pallor. There is no scleral icterus. EARS: Tympanic membranes are intact. External auditory canals are clear. NOSE: There is no deviated nasal septum. There is no inflammation nasal mucous membrane. MOUTH: Mucous membranes of mouth are moist. Tongue is moist. There is no ulcers. THROAT: There is no redness of the oropharynx. There is no exudates. SKIN: There is no skin rashes. There is no skin lesions. There is no petechia or ecchymosis. NECK: Is supple. There is no JVD. Carotids are equal there is no bruit. There is no lymphadenopathy. LUNGS: Trachea central. There is no accessory muscle respiration use. There is a few dry crackles in the left base greater than right base. No rales of CHF. HEART: S1-S2 is heard. S1 is of normal intensity. There is no S3 gallop. There is no S4 gallop. There is noes rub. There is systolic murmur left sternal border and the apex there is no rub. ABDOMEN: Soft. Nontender. There is no paraspinal megaly. Bowel sounds are well heard. EXTREMITIES: Femorals are diminished. There is no femoral bruits. Leg pulses are diminished. There is no pedal edema. There is no DVT or cellulitis. There is no calf tenderness. There is no cyanosis or clubbing. 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 PSYCHIATRIC: The patient does not appear to be agitated or depressed. Full psychiatric exam not done. Suspect the patient does have a mild degree of underlying dementia. Labs- All tests 24 hr 04/01/19 04/01/19 04/01/19 07:50 11:42 16:20 POC Glucose 239 H 326 H 318 H 04/01/19 21:07 POC Glucose 266 H Hip/Pelvis X-Ray 03/26/19 00:00 IMPRESSION: MILD IRREGULARITY OF THE RIGHT FEMORAL NECK, SUSPICIOUS FOR MINIMALLY DISPLACED FRACTURE. Shoulder X-Ray 03/26/19 00:00 IMPRESSION: NEGATIVE STUDY OF THE RIGHT SHOULDER. NO RADIOGRAPHIC EVIDENCE OF ACUTE INJURY. Cervical Spine CT 03/26/19 11:43 IMPRESSION: CHRONIC DEGENERATIVE CHANGES. NO ACUTE FINDINGS. Lower Extremity CT 03/26/19 11:43 IMPRESSION: IMPACTED FRACTURE OF THE RIGHT FEMORAL NECK. Chest X-Ray 03/26/19 14:13 IMPRESSION: Borderline cardiomegaly without pulmonary edema. Fluoroscopy 03/27/19 00:00 IMPRESSION: IMAGE(S) OBTAINED DURING PROCEDURE. Hip/Pelvis X-Ray 03/27/19 00:00 IMPRESSION: IMAGE(S) OBTAINED DURING PROCEDURE. Chest X-Ray 03/29/19 00:00 IMPRESSION: CHRONIC INTERSTITIAL CHANGES. POSSIBLE DEVELOPING INFILTRATE/ PNEUMONIA IN THE RIGHT UPPER LOBE. SIMILAR FINDING IN THE LEFT COSTOPHRENIC ANGLE. IMPRESSION/RECOMMENDATION: 1. Elevated troponin I: This is a type II supply demand mismatch OR secondary to the patient's acute anemia, acute renal insufficiency and pneumonia. No definite evidence of non-ST elevation OR. Hence we will treat underlying causs 2. Bibasilar pneumonia: Continue antibiotics. 3. Acute anemia: Most likely secondary to the patient's hip surgery/hip fractur e. Agree with blood transfusion to keep the hemoglobin 10 or above. 4. Coronary artery disease and history of old myocardial infarction: No evidence of angina. No definite evidence of nondistention OR. Continue current anti-CAD medication. Hence would increase long-acting beta-khanh to 25 mg p.o. twice daily and also increase losartan to 25 mg p.o. every 12 hours.. Continue aspirin and isosorbide mononitrate. The patient also is on Plavix would continue this. 5. Cardiomyopathy with moderately reduced LV ejection fraction: Seems to be compensated no overt evidence of congestive heart failure. 6. Hypertension: Blood pressure is well controlled continue current medications. 7. Mild acute renal failure. This should improve 8. Diabetes mellitus type 2 [id number]. 9. Status post surgery for right fracture due to accidental falls. Medications reviewed. Medical regimen and management plan discussed with the attending provider on the case. Medical decision making is of moderate complexity. 40 minutes spent with the patient with more than 50% of time spent in direct patient care.
[2019-04-01] MEDS: ATORVASTATIN CALCIUM 20 MG TABLET PO SCH (22:52)
[2019-04-01] MEDS: INSULIN GLARGINE,HUM.REC.ANLOG 1,000 UNIT/10 ML VIAL SUBCUT SCH (22:53)
[2019-04-02] MEDS: IPRATROPIUM/ALBUTEROL 0.5-2.5 MG/3 ML AMPUL NEB SCH ×3 (00:21→16:47)
[2019-04-02] MEDS: LEVALBUTEROL HCL NEB 0.63 MG/3 ML AMPUL NEB PRN (01:55)
[2019-04-02] MEDS: OXYCODONE-ACETAMINOPHEN 5-325 MG TABLET PO PRN (02:07)
[2019-04-02] MEDS: CEFEPIME HCL 2 GM in DEXTROSE 5%-WATER 50 ML IV SCH ×2 (05:40→17:14)
[2019-04-02] MEDS: PANTOPRAZOLE SODIUM 40 MG TABLET.DR PO SCH (06:14)
[2019-04-02] MEDS: INSULIN LISPRO 100 UNIT/ML 3 ML VIAL SUBCUT SCH ×4 (07:49→21:27)
[2019-04-02] MEDS: AMLODIPINE BESYLATE 5 MG TABLET PO SCH (09:17)
[2019-04-02] MEDS: SERTRALINE HCL 50 MG TABLET PO SCH (09:17)
[2019-04-02] MEDS: TAMSULOSIN HCL 0.4 MG CAP.SR.24H PO SCH (09:17)
[2019-04-02] MEDS: LEVOFLOXACIN 750 MG TABLET PO SCH (09:17)
[2019-04-02] MEDS: ISOSORBIDE MONONITRATE 60 MG TAB.ER.24H PO SCH (09:17)
[2019-04-02] MEDS: METOPROLOL SUCCINATE 25 MG TAB.SR.24H PO SCH ×2 (09:17→21:26)
[2019-04-02] MEDS: CLOPIDOGREL BISULFATE 75 MG TABLET PO SCH ×2 (09:18→17:13)
[2019-04-02] MEDS: FUROSEMIDE 20 MG TABLET PO SCH ×2 (09:18→17:13)
[2019-04-02] MEDS: CETIRIZINE 10 MG TABLET PO SCH (09:18)
[2019-04-02] MEDS: DOCUSATE SODIUM 100 MG CAPSULE PO SCH (09:18)
[2019-04-02] MEDS: LOSARTAN POTASSIUM 25 MG TABLET PO SCH ×2 (09:18→21:26)
[2019-04-02] MEDS: ENOXAPARIN SODIUM INJ 30 MG/0.3 ML DISP.SYRIN SUBCUT SCH (09:19)
[2019-04-02] MEDS: ACETAMINOPHEN 325 MG TABLET PO PRN (12:09)
--- NOTE | 2019-04-02 17:00 | Progress Note ---
Provider Note Provider Note: CARDIOLOGY PROGRESS NOTE by Dr. Chery Meraz on 04/02/2019. SUBJECTIVE: The patient denies any chest pain discomfort although he says he is not short of breath he does appear to be short of breath. He does have some orthopnea but no PND or leg edema. There is no arrhythmia seen on the monitor. There is no TIA CVA symptoms. PHYSICAL EXAMINATION: The patient appears to be chronically ill. At present in no acute distress. Selected Entries 04/02/19 06:54 Temperature 97.6 F Temperature Oral Source Pulse Rate 94 Respiratory 22 H Rate Blood Pressure 134/63 H Blood Pressure 86 Mean BP Location Right Arm BP Position Supine O2 Sat by Pulse 90 L Oximetry Oxygen Flow 5.00 Rate Oxygen Delivery Nasal Cannula Method HEAD: Is atraumatic normocephalic. EYES: Pupils are equal round regular reactive to light accommodation. Extraocular movements are normal. The patient's conjunctiva shows pallor. There is no scleral icterus. EARS: Tympanic membranes are intact. External auditory canals are clear. NOSE: There is no deviated nasal septum. There is no inflammation nasal mucous membrane. MOUTH: Mucous membranes of mouth are moist. Tongue is moist. There is no ulcers. THROAT: There is no redness of the oropharynx. There is no exudates. SKIN: There is no skin rashes. There is no skin lesions. There is no petechia or ecchymosis. NECK: Is supple. There is no JVD. Carotids are equal there is no bruit. There is no lymphadenopathy. LUNGS: Trachea central. There is no accessory muscle respiration use. There is a few dry crackles in the left base greater than right base. No rales of CHF. HEART: S1-S2 is heard. S1 is of normal intensity. There is no S3 gallop. There is no S4 gallop. There is noes rub. There is systolic murmur left sternal border and the apex there is no rub. ABDOMEN: Soft. Nontender. There is no paraspinal megaly. Bowel sounds are well heard. EXTREMITIES: Femorals are diminished. There is no femoral bruits. Leg pulses are diminished. There is no pedal edema. There is no DVT or cellulitis. There is no calf tenderness. There is no cyanosis or clubbing. 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 PSYCHIATRIC: The patient does not appear to be agitated or depressed. Full psychiatric exam not done. Suspect the patient does have a mild degree of underlying dementia. Hip/Pelvis X-Ray 03/26/19 00:00 IMPRESSION: MILD IRREGULARITY OF THE RIGHT FEMORAL NECK, SUSPICIOUS FOR MINIMALLY DISPLACED FRACTURE. Shoulder X-Ray 03/26/19 00:00 IMPRESSION: NEGATIVE STUDY OF THE RIGHT SHOULDER. NO RADIOGRAPHIC EVIDENCE OF ACUTE INJURY. Cervical Spine CT 03/26/19 11:43 IMPRESSION: CHRONIC DEGENERATIVE CHANGES. NO ACUTE FINDINGS. Lower Extremity CT 03/26/19 11:43 IMPRESSION: IMPACTED FRACTURE OF THE RIGHT FEMORAL NECK. Chest X-Ray 03/26/19 14:13 IMPRESSION: Borderline cardiomegaly without pulmonary edema. Fluoroscopy 03/27/19 00:00 IMPRESSION: IMAGE(S) OBTAINED DURING PROCEDURE. Hip/Pelvis X-Ray 03/27/19 00:00 IMPRESSION: IMAGE(S) OBTAINED DURING PROCEDURE. Chest X-Ray 03/29/19 00:00 IMPRESSION: CHRONIC INTERSTITIAL CHANGES. POSSIBLE DEVELOPING INFILTRATE/ PNEUMONIA IN THE RIGHT UPPER LOBE. SIMILAR FINDING IN THE LEFT COSTOPHRENIC ANGLE. IMPRESSION/RECOMMENDATION: 1. Elevated troponin I: This is a type II supply demand mismatch NE secondary to the patient's acute anemia, acute renal insufficiency and pneumonia. No definite evidence of non-ST elevation NE. Hence we will treat underlying causs 2. Bibasilar pneumonia: Continue antibiotics. 3. Acute anemia: Most likely secondary to the patient's hip surgery/hip fracture. Agree with blood transfusion to keep the hemoglobin 10 or above. 4. Coronary artery disease and history of old myocardial infarction: No evidence of angina. No definite evidence of nondistention NE. Continue current anti-CAD medication. Hence would continue long-acting beta-khanh to 25 mg p.o. twice daily and continue losartan to 25 mg p.o. every 12 hours.. Continue aspirin and isosorbide mononitrate. The patient also is on Plavix would continue this. 5. Cardiomyopathy with moderately reduced LV ejection fraction: Seems to be compensated no overt evidence of congestive heart failure. 6. Hypertension: Blood pressure is well controlled continue current medications. 7. Mild acute renal failure. This should improve 8. Diabetes mellitus type 2 [id number]. 9. Status post surgery for right fracture due to accidental falls. Medications continued. Medical regimen and management plan discussed with attending provider. Medical decision making is a moderate complexity. 40 minutes spent as patient more than 50% time spent in direct patient care. Will follow
--- NOTE | 2019-04-02 17:03 | PDOC PROGRESS REPORT ---
Subjective Progress Note for:: 04/02/19 Reason For Visit: STEMI 04/02/2019 Right femoral neck fracture, coronary artery disease, hypertension, elevated troponin, generalized weakness, pneumonia Physical Exam Vital Signs: Temp Pulse Resp BP Pulse Ox 98.2 F 92 22 H 137/67 H 87 L 04/02/19 02:45 04/02/19 14:00 04/02/19 09:00 04/02/19 02:45 04/02/19 09:00 Intake & Output 04/01/19 04/02/19 04/03/19 06:59 06:59 06:59 Intake Total 1590 1870 650 Output Total 375 2125 400 Balance 1215 -255 250 Weight 96 kg 95.6 kg General appearance: PRESENT: no acute distress, other - Patient states he feels tired and is ready to get out of the hospital Respiratory exam: PRESENT: clear to auscultation blank. ABSENT: rales, rhonchi, wheezes Cardiovascular exam: PRESENT: RRR. ABSENT: diastolic murmur, rubs, systolic murmur Musculoskeletal exam: PRESENT: other - Deferred Neurological exam: PRESENT: alert, awake, oriented to person, oriented to place, oriented to time, oriented to situation, CN II-XII grossly intact. ABSENT: motor sensory deficit Psychiatric exam: PRESENT: appropriate affect, normal mood. ABSENT: homicidal ideation, suicidal ideation Results Laboratory Results: 03/31/19 05:20 03/31/19 05:20 03/26/19 03/26/19 03/31/19 07:06 07:06 03:31 Creatine Kinase 127 164 CK-MB (CK-2) Troponin I < 0.012 03/31/19 03/31/19 03/31/19 03:31 05:20 05:20 Creatine Kinase 162 CK-MB (CK-2) 1.03 1.23 Troponin I 0.342 0.376 03/31/19 03/31/19 03/31/19 10:39 10:39 16:38 Creatine Kinase 157 115 CK-MB (CK-2) 1.36 Troponin I 0.301 03/31/19 16:38 Creatine Kinase CK-MB (CK-2) 1.31 Troponin I 0.323 Impressions: Shoulder X-Ray 03/26/19 00:00 IMPRESSION: NEGATIVE STUDY OF THE RIGHT SHOULDER. NO RADIOGRAPHIC EVIDENCE OF ACUTE INJURY. Cervical Spine CT 03/26/19 11:43 IMPRESSION: CHRONIC DEGENERATIVE CHANGES. NO ACUTE FINDINGS. Lower Extremity CT 03/26/19 11:43 IMPRESSION: IMPACTED FRACTURE OF THE RIGHT FEMORAL NECK. Fluoroscopy 03/27/19 00:00 IMPRESSION: IMAGE(S) OBTAINED DURING PROCEDURE. Hip/Pelvis X-Ray 03/27/19 00:00 IMPRESSION: IMAGE(S) OBTAINED DURING PROCEDURE. Assessment and Plan - Diagnosis (1) Closed displaced fracture of right femoral neck Is this a current diagnosis for this admission?: Yes (2) Shoulder contusion Qualifiers: Encounter type: initial encounter Laterality: right Qualified Code(s): S40.011A - Contusion of right shoulder, initial encounter Is this a current diagnosis for this admission?: Yes (3) CAD (coronary artery disease) Qualifiers: Coronary Disease-Associated Artery/Lesion type: [place] artery [place] vs. transplanted heart: [place] heart Associated angina: with stable angina Qualified Code(s): I25.118 - Atherosclerotic heart disease of [place] coronary artery with other forms of angina pectoris Is this a current diagnosis for this admission?: Yes (4) Hypertension Qualifiers: Hypertension type: essential hypertension Qualified Code(s): I10 - Essential (primary) hypertension Is this a current diagnosis for this admission?: Yes (5) Elevated troponin Is this a current diagnosis for this admission?: Yes (6) Pneumonia Is this a current diagnosis for this admission?: Yes - Plan Summary Summary: 03/31/2019 Temperature 97.6 pulse 100 blood pressure 122/67 oxygen saturation 93% on 3 L nasal cannula Chest x-ray shows probable edema left lower lobe Patient underwent a hip pinning on 03/26 he is postop day #5. He working with physical therapy. Weight bearing as tolerated On 213 on admission his troponin was normal however early this morning troponin was elevated at 0.342 then it went up to .376 and most recently is started trending down to 0.301. CK-MB indexes are normal. Patient is currently on Plavix, aspirin, Lovenox, well as nitrates and beta-blockers. I will order a statin Patient is also currently on antibiotics Cardiology has seen the patient and ordered a cardiac study rule out ischemia. The patient is a high risk for any type of catheterization or stenting process. Patient is not having any chest pain. Will follow cardiology's recommendations. Continue physical therapy as tolerated. 04/01/2019 Today's cardiac work-up shows no evidence of acute ischemia secondary to cardiac disease Patient remains afebrile and has had no temperature for 72 hours Heart rate is averaging around 100, however ever since admission his heart rate is been in the mid to upper 90s Patient's oxygen saturations remain in the low 90s, nasal cannula oxygen between 3 and 4 L/min Patient has what sounds to be crackles in both bases but no peripheral edema. Patient received a one-time order of 40 Lasix IV this morning and has diuresed over 600 cc. I have increased his p.o. Lasix to 20 mg twice daily Glucose levels are still running high, will increase patient's Lantus to 10 units nightly Chest x-ray from yesterday shows increased bilateral opacities, left greater than right Continue IV cefepime and Levaquin Still waiting on placement decision 04/02/2019 Patient being seen daily by physical therapy to assist with gait training, bed mobility transfer training. They have recommended continued physical therapy when patient is discharged Patient is medically stable to transfer to rehab/fpc facility. Will continue medications p.o. at the time of discharge Patient remains afebrile 98.2, pulse in the low 90s, blood pressure stable 137/67 Recent labs are stable but we will recheck them in the morning - Time Time Spent with patient: 15-24 minutes
[2019-04-02] MEDS: PATIROMER 8.4 GM SUSP PACKET PO SCH (17:13)
[2019-04-02] MEDS: ATORVASTATIN CALCIUM 20 MG TABLET PO SCH (21:26)
[2019-04-02] MEDS: INSULIN GLARGINE,HUM.REC.ANLOG 1,000 UNIT/10 ML VIAL SUBCUT SCH (21:27)
[2019-04-03] MEDS: IPRATROPIUM/ALBUTEROL 0.5-2.5 MG/3 ML AMPUL NEB SCH ×3 (00:50→15:56)
[2019-04-03] MEDS: PANTOPRAZOLE SODIUM 40 MG TABLET.DR PO SCH (05:24)
[2019-04-03] MEDS: CEFEPIME HCL 2 GM in DEXTROSE 5%-WATER 50 ML IV SCH (05:24)
[2019-04-03] MEDS: NORMAL SALINE 1000 ML 1,000 ML IV PRN (05:31)
--- NOTE | 2019-04-03 06:51 | Progress Note ---
Provider Note Provider Note: Critical care: 04/03/2019 Critical care onset time: 06:03 Critical care issue: Hypoxia Patient's nurse contacted me to inform me that the patient becomes severely hypoxic when any effort is made to remove him from a 15 L/min nonrebreather mask. Patient is also noted to have a significant decline in his oxygen sa turation with any movement or change of position. Patient has dementia and is not able to contribute to his medical care. I evaluated the patient and found his chest to be clear to auscultation with decreased air movement throughout his chest and a prolonged expiratory phase noted. Heart showed a regular rate and rhythm without murmurs clicks gallops or rubs. Abdomen is soft bowel sounds were present in all 4 quadrants. Extremities reveal no clubbing cyanosis or edema. A discussion was held at length with the patient's nursing provider and it was determined that the best course of action would be to place the patient on BiPAP. BiPAP settings will be 12/6 with oxygen at 50% initially with adjustments to be made as appropriate. Critical care end time: 06:51 Total critical care time: 22 minutes
[2019-04-03 07:06] LABS: HEMATOCRIT 24.7 % (37.9-51.0); HEMOGLOBIN 8.1 g/dL (13.5-17.0); MEAN CORPUSCULAR HEMOGLOBIN 28.9 pg (27.0-33.4); MEAN CORPUSCULAR HGB CONC 32.8 g/dL (32.0-36.0); MEAN CORPUSCULAR VOLUME 88 fl (80-97); PLATELET COUNT 428 10^3/uL (150-450); RED CELL DISTRIBUTION WIDTH 14.8 % (11.5-14.0); WHITE BLOOD COUNT 17.9 10^3/uL (4.0-10.5)
[2019-04-03 07:16] LABS: ANION GAP 17 (5-19); BLOOD UREA NITROGEN 52 mg/dL (7-20); CALCIUM 8.6 mg/dL (8.4-10.2); CARBON DIOXIDE 16 mmol/L (22-30); CHLORIDE 98 mmol/L (98-107); GLUCOSE 304 mg/dL (75-110); POTASSIUM 4.9 mmol/L (3.6-5.0)
[2019-04-03 07:29] LABS: ABSOLUTE LYMPHOCYTES# (MANUAL) 0.4 10^3/uL (0.5-4.7); ABSOLUTE MONOCYTES # (MANUAL) 1.3 10^3/uL (0.1-1.4); BASOPHILS % (MANUAL) 0 % (0-2); EOSINOPHILS % (MANUAL) 1 % (0-6); LYMPHOCYTES % (MANUAL) 2 % (13-45); MONOCYTES % (MANUAL) 7 % (3-13); SEGMENTED NEUTROPHILS % (MAN) 90 % (42-78); TOTAL CELLS COUNTED 100
[2019-04-03 07:35] LABS: ANISOCYTOSIS SLIGHT; OVALOCYTES SLIGHT; PLATELET COMMENT ADEQUATE; POLYCHROMASIA SLIGHT
[2019-04-03] MEDS: INSULIN LISPRO 100 UNIT/ML 3 ML VIAL SUBCUT SCH ×4 (07:49→23:25)
--- NOTE | 2019-04-03 09:16 | RADIOLOGY REPORT (SQ) ---
EXAM DESCRIPTION: CHEST SINGLE VIEW COMPLETED DATE/TIME: 04/03/2019 8:51 am REASON FOR STUDY: R/O PNA COMPARISON: 03/31/2019 NUMBER OF VIEWS: One view. TECHNIQUE: Single frontal radiographic image of the chest acquired. LIMITATIONS: None. FINDINGS: LUNGS AND PLEURA: Diffuse airspace disease not significantly changed allowing for differen taylor in technique. MEDIASTINUM AND HEART: Stable heart size and mediastinal structures. BONY STRUCTURES: No acute findings. HARDWARE: None. OTHER: No other significant finding. IMPRESSION: Bilateral pneumonia. No significant change. TECHNICAL DOCUMENTATION: JOB ID: [id number] Reading location - IP/workstation name: [email or web address]
[2019-04-03] MEDS ORDERED: FUROSEMIDE INJ/PF 40 MG/4 ML SDV IV ONE (09:20)
--- NOTE | 2019-04-03 09:34 | PDOC PROGRESS REPORT ---
Subjective Progress Note for:: 04/03/19 Reason For Visit: STEMI 04/03/2019 Fracture of the right femoral neck, CAD, hypertension, pneumonia, generalized weakness, elevated troponin Physical Exam Vital Signs: Temp Pulse Resp BP Pulse Ox 98.1 F 100 25 H 160/74 H 97 04/03/19 07:21 04/03/19 08:27 04/03/19 08:27 04/03/19 07:21 04/03/19 08:27 Intake & Output 04/02/19 04/03/19 04/04/19 06:59 06:59 06:59 Intake Total 1870 2400 Output Total 2125 2075 Balance -255 325 Weight 95.6 kg 96 kg Results Laboratory Results: 04/03/19 06:21 04/03/19 06:21 04/03/19 04/03/19 06:21 06:21 WBC 17.9 H RBC 2.80 L Hgb 8.1 L Hct 24.7 L MCV 88 MCH 28.9 MCHC 32.8 RDW 14.8 H Plt Count 428 Seg Neutrophils % Not Reportable Sodium 131.1 L Potassium 4.9 Chloride 98 Carbon Dioxide 16 L Anion Gap 17 BUN 52 H Creatinine 1.69 H Est GFR ( Amer) 48 L Glucose 304 H Calcium 8.6 03/26/19 03/26/19 03/31/19 07:06 07:06 03:31 Creatine Kinase 127 164 CK-MB (CK-2) Troponin I < 0.012 03/31/19 03/31/19 03/31/19 03:31 05:20 05:20 Creatine Kinase 162 CK-MB (CK-2) 1.03 1.23 Troponin I 0.342 0.376 03/31/19 03/31/19 03/31/19 10:39 10:39 16:38 Creatine Kinase 157 115 CK-MB (CK-2) 1.36 Troponin I 0.301 03/31/19 16:38 Creatine Kinase CK-MB (CK-2) 1.31 Troponin I 0.323 Impressions: Shoulder X-Ray 03/26/19 00:00 IMPRESSION: NEGATIVE STUDY OF THE RIGHT SHOULDER. NO RADIOGRAPHIC EVIDENCE OF ACUTE INJURY. Cervical Spine CT 03/26/19 11:43 IMPRESSION: CHRONIC DEGENERATIVE CHANGES. NO ACUTE FINDINGS. Lower Extremity CT 03/26/19 11:43 IMPRESSION: IMPACTED FRACTURE OF THE RIGHT FEMORAL NECK. Fluoroscopy 03/27/19 00:00 IMPRESSION: IMAGE(S) OBTAINED DURING PROCEDURE. Hip/Pelvis X-Ray 03/27/19 00:00 IMPRESSION: IMAGE(S) OBTAINED DURING PROCEDURE. Chest X-Ray 04/03/19 00:00 IMPRESSION: Bilateral pneumonia. No significant change. Assessment and Plan - Diagnosis (1) Closed displaced fracture of right femoral neck Is this a current diagnosis for this admission?: Yes (2) Shoulder contusion Qualifiers: Encounter type: initial encounter Laterality: right Qualified Code(s): S40.011A - Contusion of right shoulder, initial encounter Is this a current diagnosis for this admission?: Yes (3) CAD (coronary artery disease) Qualifiers: Coronary Disease-Associated Artery/Lesion type: [place] artery [place] vs. transplanted heart: [place] heart Associated angina: with stable angina Qualified Code(s): I25.118 - Atherosclerotic heart disease of [place] coronary artery with other forms of angina pectoris Is this a current diagnosis for this admission?: Yes (4) Hypertension Qualifiers: Hypertension type: essential hypertension Qualified Code(s): I10 - Essential (primary) hypertension Is this a current diagnosis for this admission?: Yes (5) Elevated troponin Is this a current diagnosis for this admission?: Yes (6) Pneumonia Is this a current diagnosis for this admission?: Yes - Plan Summary Summary: 03/31/2019 Temperature 97.6 pulse 100 blood pressure 122/67 oxygen saturation 93% on 3 L nasal cannula Chest x-ray shows probable edema left lower lobe Patient underwent a hip pinning on 03/26 he is postop day #5. He working with physical therapy. Weight bearing as tolerated On 213 on admission his troponin was normal however early this morning troponin was elevated at 0.342 then it went up to .376 and most recently is started trending down to 0.301. CK-MB indexes are normal. Patient is currently on Plavix, aspirin, Lovenox, well as nitrates and beta-blockers. I will order a statin Patient is also currently on antibiotics Cardiology has seen the patient and ordered a cardiac study rule out ischemia. The patient is a high risk for any type of catheterization or stenting process. Patient is not having any chest pain. Will follow cardiology's recommendations. Continue physical therapy as tolerated. 04/01/2019 Today's cardiac work-up shows no evidence of acute ischemia secondary to cardiac disease Patient remains afebrile and has had no temperature for 72 hours Heart rate is averaging around 100, however ever since admission his heart rate is been in the mid to upper 90s Patient's oxygen saturations remain in the low 90s, nasal cannula oxygen between 3 and 4 L/min Patient has what sounds to be crackles in both bases but no peripheral edema. Patient received a one-time order of 40 Lasix IV this morning and has diuresed over 600 cc. I have increased his p.o. Lasix to 20 mg twice daily Glucose levels are still running high, will increase patient's Lantus to 10 units nightly Chest x-ray from yesterday shows increased bilateral opacities, left greater than right Continue IV cefepime and Levaquin Still waiting on placement decision 04/02/2019 Patient being seen daily by physical therapy to assist with gait training, bed mobility transfer training. They have recommended continued physical therapy when patient is discharged Patient is medically stable to transfer to rehab/jail facility. Will continue medications p.o. at the time of discharge Patient remains afebrile 98.2, pulse in the low 90s, blood pressure stable 137/67 Recent labs are stable but we will recheck them in the morning 04/03/2019 Temperature 98.1 pulse 89 blood pressure 160/74 Patient had to be put on BiPAP last night due to hypoxia and respiratory distress currently his saturations are between 7% on 5 L with FiO2 at 45%. Blood gas is pending This x-ray shows increased pneumonia as well as mild pulmonary edema Patient is currently taking 20 of Lasix p.o. twice daily I just given him a one- time dose of 40 mg Lasix IV Is already on cefepime and Levaquin Patient is awake and alert but clearly not doing as well from a respiratory standpoint Patient has been on Lovenox now since surgery. I will discuss with the son the patient's respiratory compromise - Time Time Spent with patient: 25-34 minutes
[2019-04-03 10:35] LABS: ARTERIAL BLOOD FIO2 40%; ARTERIAL BLOOD H2CO3 0.96 mmol/L (1.05-1.35); ARTERIAL BLOOD HCO3 17.6 mmol/L (20-24); ARTERIAL BLOOD O2 SATURATION 91.3 % (94-98); ARTERIAL BLOOD PCO2 31.9 mmHg (35-45); ARTERIAL BLOOD PH 7.36 (7.35-7.45); ARTERIAL BLOOD PO2 62.2 mmHg (80-100); ARTERIAL BLOOD TOTAL CO2 18.6 mmol/L (23-27)
[2019-04-03] MEDS: ASPIRIN 81 MG TABLET, CHEWABLE PO SCH (11:43)
[2019-04-03] MEDS: DOCUSATE SODIUM 100 MG CAPSULE PO SCH (11:43)
[2019-04-03] MEDS: LOSARTAN POTASSIUM 25 MG TABLET PO SCH ×2 (11:43→23:25)
[2019-04-03] MEDS: LEVOFLOXACIN 750 MG TABLET PO SCH (11:44)
[2019-04-03] MEDS: FUROSEMIDE 20 MG TABLET PO SCH ×2 (11:44→17:43)
[2019-04-03] MEDS: CLOPIDOGREL BISULFATE 75 MG TABLET PO SCH ×2 (11:44→17:40)
[2019-04-03] MEDS: ENOXAPARIN SODIUM INJ 30 MG/0.3 ML DISP.SYRIN SUBCUT SCH (11:44)
[2019-04-03] MEDS: AMLODIPINE BESYLATE 5 MG TABLET PO SCH (11:44)
[2019-04-03] MEDS: METOPROLOL SUCCINATE 25 MG TAB.SR.24H PO SCH ×2 (11:44→23:26)
[2019-04-03] MEDS: ISOSORBIDE MONONITRATE 60 MG TAB.ER.24H PO SCH (11:44)
[2019-04-03] MEDS: TAMSULOSIN HCL 0.4 MG CAP.SR.24H PO SCH (11:44)
[2019-04-03] MEDS: CETIRIZINE 10 MG TABLET PO SCH (11:45)
[2019-04-03] MEDS: SERTRALINE HCL 50 MG TABLET PO SCH (11:45)
--- NOTE | 2019-04-03 14:55 | Progress Note ---
Provider Note Provider Note: CARDIOLOGY PROGRESS NOTE by Dr. Chery Padilla on 04/03/2019. SUBJECTIVE: The patient has taken a turn for the worse and is more short of breath. He is on a BiPAP. He denies any chest pain but obviously short of breath. There is no arrhythmia seen on the monitor. Chest x-ray shows worsening of the pneumonia. There is no definite evidence of heart failure. PHYSICAL EXAMINATION: The patient appears to be chronically ill. In no acute distress. Selected Entries 04/02/19 14:53 Temperature 97.5 F Temperature Oral Source Pulse Rate 94 Respiratory 18 Rate Blood Pressure 125/62 Blood Pressure 83 Mean BP Location Right Arm BP Position Supine O2 Sat by Pulse 89 L Oximetry Oxygen Flow 5.00 Rate Oxygen Delivery BiPap Method HEAD: Is atraumatic normocephalic. EYES: Pupils are equal round regular reactive to light accommodation. Extraocular movements are normal. The patient's conjunctiva shows pallor. There is no scleral icterus. EARS: Tympanic membranes are intact. External auditory canals are clear. NOSE: There is no deviated nasal septum. There is no inflammation nasal mucous membrane. MOUTH: Mucous membranes of mouth are moist. Tongue is moist. There is no ulcers. THROAT: There is no redness of the oropharynx. There is no exudates. SKIN: There is no skin rashes. There is no skin lesions. There is no petechia or ecchymosis. NECK: Is supple. There is no JVD. Carotids are equal there is no bruit. There is no lymphadenopathy. LUNGS: Trachea central. There is no accessory muscle respiration use. There is a few dry crackles in the left base greater than right base. No rales of CHF. HEART: S1-S2 is heard. S1 is of n ormal intensity. There is no S3 gallop. There is no S4 gallop. There is noes rub. There is systolic murmur left sternal border and the apex there is no rub. ABDOMEN: Soft. Nontender. There is no paraspinal megaly. Bowel sounds are well heard. EXTREMITIES: Femorals are diminished. There is no femoral bruits. Leg pulses are diminished. There is no pedal edema. There is no DVT or celluli tis. There is no calf tenderness. There is no cyanosis or clubbing. DIETITIAN ASSISTANT: The patient is slightly drowsy but seems to be oriented x2 with no focal deficits. PSYCHIATRIC: The patient does not appear to be agitated or depressed. Full psychiatric exam not done. Suspect the patient does have a mild degree of underlying dementia. Labs- All tests 24 hr 04/03/19 04/03/19 04/03/19 06:21 06:21 07:23 WBC 17.9 H RBC 2.80 L Hgb 8.1 L Hct 24.7 L MCV 88 MCH 28.9 MCHC 32.8 RDW 14.8 H Plt Count 428 Lymph % (Auto) Not Reportable Harlan % (Auto) Not Reportable Eos % (Auto) Not Reportable Baso % (Auto) Not Reportable Absolute Neuts (auto) Not Reportable Absolute Lymphs (auto) Not Reportable Absolute Monos (auto) Not Reportable Absolute Eos (auto) Not Reportable Absolute Basos (auto) Not Reportable Total Counted 100 Seg Neutrophils % Not Reportable Seg Neuts % (Manual) 90 H Lymphocytes % (Manual) 2 L Monocytes % (Manual) 7 Eosinophils % (Manual) 1 Basophils % (Manual) 0 Abs Neuts (Manual) 16.1 H Abs Lymphs (Manual) 0.4 L Abs Monocytes (Manual) 1.3 Absolute Eos (Manual) 0.2 Abs Basophils (Manual) 0.0 Platelet Comment ADEQUATE Polychromasia SLIGHT Anisocytosis SLIGHT Ovalocytes SLIGHT Carbonic Acid HCO3/H2CO3 Ratio ABG pH ABG pCO2 ABG pO2 ABG HCO3 ABG Total CO2 ABG O2 Saturation ABG Base Excess FiO2 Sodium 131.1 L Potassium 4.9 Chloride 98 Carbon Dioxide 16 L Anion Gap 17 BUN 52 H Creatinine 1.69 H Est GFR ( Amer) 48 L Est GFR (MDRD) Non-Af 40 L Glucose 304 H POC Glucose 311 H Calcium 8.6 04/03/19 04/03/19 04/03/19 10:20 11:59 14:53 WBC RBC Hgb Hct MCV MCH MCHC RDW Plt Count Lymph % (Auto) Harlan % (Auto) Eos % (Auto) Baso % (Auto) Absolute Neuts (auto) Absolute Lymphs (auto) Absolute Monos (auto) Absolute Eos (auto) Absolute Basos (auto) Total Counted Seg Neutrophils % Seg Neuts % (Manual) Lymphocytes % (Manual) Monocytes % (Manual) Eosinophils % (Manual) Basophils % (Manual) Abs Neuts (Manual) Abs Lymphs (Manual) Abs Monocytes (Manual) Absolute Eos (Manual) Abs Basophils (Manual) Platelet Comment Polychromasia Anisocytosis Ovalocytes Carbonic Acid 0.96 L HCO3/H2CO3 Ratio 18:1 ABG pH 7.36 ABG pCO2 31.9 L ABG pO2 62.2 L ABG HCO3 17.6 L ABG Total CO2 18.6 L ABG O2 Saturation 91.3 L ABG Base Excess -7.0 FiO2 40% Sodium Potassium Chloride Carbon Dioxide Anion Gap BUN Creatinine Est GFR ( Amer) Est GFR (MDRD) Non-Af Glucose POC Glucose 275 H 284 H Calcium 04/03/19 22:05 WBC RBC Hgb Hct MCV MCH MCHC RDW Plt Count Lymph % (Auto) [place]lan % (Auto) Eos % (Auto) Baso % (Auto) Absolute Neuts (auto) Absolute Lymphs (auto) Absolute Monos (auto) Absolute Eos (auto) Absolute Basos (auto) Total Counted Seg Neutrophils % Seg Neuts % (Manual) Lymphocytes % (Manual) Monocytes % (Manual) Eosinophils % (Manual) Basophils % (Manual) Abs Neuts (Manual) Abs Lymphs (Manual) Abs Monocytes (Manual) Absolute Eos (Manual) Abs Basophils (Manual) Platelet Comment Polychromasia Anisocytosis Ovalocytes Carbonic Acid HCO3/H2CO3 Ratio ABG pH ABG pCO2 ABG pO2 ABG HCO3 ABG Total CO2 ABG O2 Saturation ABG Base Excess FiO2 Sodium Potassium Chloride Carbon Dioxide Anion Gap BUN Creatinine Est GFR ( Amer) Est GFR (MDRD) Non-Af Glucose POC Glucose 310 H Calcium Hip/Pelvis X-Ray 03/26/19 00:00 IMPRESSION: MILD IRREGULARITY OF THE RIGHT FEMORAL NECK, SUSPICIOUS FOR MINIMALLY DISPLACED FRACTURE. Shoulder X-Ray 03/26/19 00:00 IMPRESSION: NEGATIVE STUDY OF THE RIGHT SHOULDER. NO RADIOGRAPHIC EVIDENCE OF ACUTE INJURY. Cervical Spine CT 03/26/19 11:43 IMPRESSION: CHRONIC DEGENERATIVE CHANGES. NO ACUTE FINDINGS. Lower Extremity CT 03/26/19 11:43 IMPRESSION: IMPACTED FRACTURE OF THE RIGHT FEMORAL NECK. Chest X-Ray 03/26/19 14:13 IMPRESSION: Borderline cardiomegaly without pulmonary edema. Fluoroscopy 03/27/19 00:00 IMPRESSION: IMAGE(S) OBTAINED DURING PROCEDURE. Hip/Pelvis X-Ray 03/27/19 00:00 IMPRESSION: IMAGE(S) OBTAINED DURING PROCEDURE. Chest X-Ray 03/29/19 00:00 IMPRESSION: CHRONIC INTERSTITIAL CHANGES. POSSIBLE DEVELOPING INFILTRATE/ PNEUMONIA IN THE RIGHT UPPER LOBE. SIMILAR FINDING IN THE LEFT COSTOPHRENIC ANGLE. Chest X-Ray 04/03/19 00:00 IMPRESSION: Bilateral pneumonia. No significant change. IMPRESSION/RECOMMENDATION: 1. Elevated troponin I: This is a type II supply demand mismatch VA secondary to the patient's acute anemia, acute renal insufficiency and pneumonia. No definite evidence of non-ST elevation VA. Hence we will treat underlying causs 2. Bibasilar pneumonia: Continue antibiotics. 3. Acute anemia: Most likely secondary to the patient's hip surgery/hip fracture. Agree with blood transfusion to keep the hemoglobin 10 or above. 4. Coronary artery disease and history of old myocardial infarction: No evidence of angina. No definite evidence of nondistention VA. Continue current anti-CAD medication. Hence would increase long-acting beta-khanh to 25 mg p.o. twice daily and also increase losartan to 25 mg p.o. every 12 hours.. Continue aspirin and isosorbide mononitrate. The patient also is on Plavix would continue this. 5. Cardiomyopathy with moderately reduced LV ejection fraction: Seems to be compensated no overt evidence of congestive heart failure. 6. Hypertension: Blood pressure is well controlled continue current medications. 7. Renal Failure: Seems to be worsening. Most likely secondary to infection 8. Diabetes mellitus type 2 [id number]. 9. Status post surgery for right fracture due to accidental falls. Medications reviewed. Medical regimen and management plan discussed with the attending provider. Would recommend changing the patient's antibiotics. Medical decision making is of moderate to high complexity. Discussed with the family members. Discussed the patient's condition with the patient's family. Discussed the pneumonia, his cardiomyopathy with reduced LV ejection fraction, and his renal status all discussed. Will follow
[2019-04-03] MEDS ORDERED: VANCOMYCIN HCL 0 MG in DEXTROSE 5%-WATER 250 ML IV NR (15:15)
[2019-04-03] MEDS: PATIROMER 8.4 GM SUSP PACKET PO SCH (17:20)
[2019-04-03] MEDS: FUROSEMIDE INJ/PF 20 MG/2 ML SDV IV SCH ×2 (17:20→21:38)
[2019-04-03] MEDS: PIPERACILLIN SODIUM/TAZOBACTAM 3.375 GM in NORMAL SALINE 100 ML IV SCH (17:41)
[2019-04-03] MEDS ORDERED: VANCOMYCIN HCL 1,500 MG in DEXTROSE 5%-WATER 250 ML IV SCH (18:00)
[2019-04-03] MEDS: INSULIN GLARGINE,HUM.REC.ANLOG 1,000 UNIT/10 ML VIAL SUBCUT SCH (23:25)
[2019-04-03] MEDS: ATORVASTATIN CALCIUM 20 MG TABLET PO SCH (23:26)
[2019-04-04] MEDS: MORPHINE SULFATE 10 MG/ML INJ IV PRN ×2 (00:15→04:56)
[2019-04-04] MEDS: PIPERACILLIN SODIUM/TAZOBACTAM 3.375 GM in NORMAL SALINE 100 ML IV SCH ×4 (00:15→19:30)
[2019-04-04] MEDS: LORAZEPAM INJ 2 MG/1 ML VIAL IV PRN ×2 (00:15→04:58)
[2019-04-04] MEDS: IPRATROPIUM/ALBUTEROL 0.5-2.5 MG/3 ML AMPUL NEB SCH ×3 (00:37→15:41)
[2019-04-04] MEDS ORDERED: HALOPERIDOL LACTATE INJ 5 MG/1 ML VIAL ONE (03:05)
[2019-04-04] MEDS ORDERED: HALOPERIDOL LACTATE INJ 5 MG/1 ML VIAL IV ONE (03:15)
[2019-04-04] MEDS: PANTOPRAZOLE SODIUM 40 MG TABLET.DR PO SCH (05:06)
[2019-04-04 05:44] LABS: HEMATOCRIT 23.5 % (37.9-51.0); MEAN CORPUSCULAR HEMOGLOBIN 29.3 pg (27.0-33.4); MEAN CORPUSCULAR HGB CONC 33.1 g/dL (32.0-36.0); MEAN CORPUSCULAR VOLUME 89 fl (80-97); PLATELET COUNT 379 10^3/uL (150-450); RED BLOOD COUNT 2.66 10^6/uL (4.35-5.55); WHITE BLOOD COUNT 20.3 10^3/uL (4.0-10.5)
[2019-04-04 06:01] LABS: ANION GAP 16 (5-19); BLOOD UREA NITROGEN 58 mg/dL (7-20); CALCIUM 8.7 mg/dL (8.4-10.2); CARBON DIOXIDE 17 mmol/L (22-30); CHLORIDE 100 mmol/L (98-107); GLUCOSE 338 mg/dL (75-110); POTASSIUM 4.8 mmol/L (3.6-5.0)
[2019-04-04 06:07] LABS: ABSOLUTE LYMPHOCYTES# (MANUAL) 0.4 10^3/uL (0.5-4.7); BAND NEUTROPHILS % (MANUAL) 1 % (3-5); BASOPHILS % (MANUAL) 0 % (0-2); EOSINOPHILS % (MANUAL) 0 % (0-6); LYMPHOCYTES % (MANUAL) 2 % (13-45); MONOCYTES % (MANUAL) 5 % (3-13); NUCLEATED RED BLOOD CELLS 1 /100 WBC (0); SEGMENTED NEUTROPHILS % (MAN) 92 % (42-78); TOTAL CELLS COUNTED 100
[2019-04-04 06:08] LABS: ANISOCYTOSIS SLIGHT; PLATELET COMMENT ADEQUATE; POLYCHROMASIA SLIGHT
[2019-04-04 06:09] LABS: HEMOGLOBIN 7.8 g/dL (13.5-17.0)
[2019-04-04] MEDS ORDERED: NORMAL SALINE 1000 ML 1,000 ML IV ONE (07:15)
[2019-04-04] MEDS ORDERED: ETOMIDATE INJ/PF 20 MG/10 ML SDV IV ONE ×2 (08:27→10:00)
[2019-04-04] MEDS ORDERED: PROPOFOL 1,000 MG/100 ML INFUS..BTL IV ONE (08:37)
[2019-04-04] MEDS: PROPOFOL 1,000 MG/100 ML INFUS..BTL IV PRN ×3 (08:45→20:15)
[2019-04-04] MEDS ORDERED: ACETAMINOPHEN 325 MG TABLET PO PRN (08:53)
[2019-04-04] MEDS ORDERED: MORPHINE SULFATE 10 MG/ML INJ ONE (08:57)
[2019-04-04] MEDS ORDERED: MORPHINE SULFATE 10 MG/ML INJ IV PRN (09:02)
[2019-04-04] MEDS ORDERED: MECLIZINE HCL 25 MG TABLET PO PRN (09:02)
[2019-04-04] MEDS ORDERED: PANTOPRAZOLE SODIUM 40 MG VIAL IV ONE (09:30)
[2019-04-04] MEDS ORDERED: FAMOTIDINE 20 MG TABLET PO SCH (10:00)
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
--- NOTE | 2019-04-04 10:19 | RADIOLOGY REPORT (SQ) ---
EXAM DESCRIPTION: CHEST SINGLE VIEW COMPLETED DATE/TIME: 04/04/2019 10:01 am REASON FOR STUDY: Intubation COMPARISON: 04/03/2019 EXAM PARAMETERS: NUMBER OF VIEWS: One view TECHNIQUE: Single frontal radiograph of the chest. RADIATION DOSE: N/A LIMITATIONS: None. FINDINGS: TEMPORARY SUPPORT DEVICES:ETT in expected location. NG tube courses below the amor-diaphr agm in to the stomach. LUNGS AND PLEURA: Diffuse parenchymal opacities without improvement. No effusions. No masses. No pne umothorax. MEDIASTINUM AND HILAR STRUCTURES: No masses. Contour normal. HEART AND VASCULAR STRUCTURES: Heart normal in size. normal vascularity. Aorta normal for age. BONES: No acute findings. OTHER: No other significant finding. IMPRESSION: Diffuse parenchymal opacities without improvement. SUPPORT DEVICE(S) IN EXPECTED LOCATIONS. TECHNICAL DOCUMENTATION: JOB ID: [id number] [employer]- All Rights Reserved Reading location - IP/workstation name: [email or web address]
[2019-04-04] MEDS: DOCUSATE SODIUM 100 MG/10 ML UDC NG SCH ×2 (10:30→17:31)
[2019-04-04] MEDS: INSULIN LISPRO 100 UNIT/ML 3 ML VIAL SUBCUT SCH ×6 (10:30→21:45)
[2019-04-04] MEDS: ASPIRIN 81 MG TABLET, CHEWABLE NG SCH (10:31)
[2019-04-04] MEDS: ENOXAPARIN SODIUM INJ 30 MG/0.3 ML DISP.SYRIN SUBCUT SCH (10:31)
[2019-04-04] MEDS: NORMAL SALINE 1000 ML 2,300 ML IV PRN ×3 (10:33→23:42)
--- NOTE | 2019-04-04 11:50 | Progress Note ---
Provider Note Provider Note: Patient intubated with #8 ETT. At 24 at [facility]. Etomidate for sedation.
[2019-04-04] MEDS ORDERED: CALCIUM GLUCONATE 1000 MG/10 ML INJ IV ONE (12:26)
[2019-04-04 12:43] LABS: ARTERIAL BLOOD BASE EXCESS -8.2 mmol/L; ARTERIAL BLOOD FIO2 80%; ARTERIAL BLOOD H2CO3 1.38 mmol/L (1.05-1.35); ARTERIAL BLOOD HCO3 18.8 mmol/L (20-24); ARTERIAL BLOOD O2 SATURATION 98.8 % (94-98); ARTERIAL BLOOD PCO2 45.7 mmHg (35-45); ARTERIAL BLOOD PH 7.23 (7.35-7.45); ARTERIAL BLOOD PO2 163.5 mmHg (80-100); ARTERIAL BLOOD TOTAL CO2 20.2 mmol/L (23-27)
[2019-04-04 13:16] LABS: ANION GAP 15 (5-19); BLOOD UREA NITROGEN 66 mg/dL (7-20); CALCIUM 7.9 mg/dL (8.4-10.2); CARBON DIOXIDE 16 mmol/L (22-30); CHLORIDE 103 mmol/L (98-107); GLUCOSE 339 mg/dL (75-110); POTASSIUM 4.9 mmol/L (3.6-5.0)
[2019-04-04] MEDS ORDERED: THIAMINE HCL INJ 200 MG/2 ML VIAL IM SCH (13:30)
[2019-04-04] MEDS: CALCIUM GLUCONATE 1 GM/NS 50 ML RTU IV SCH ×2 (14:43→17:14)
[2019-04-04] MEDS: HYDROCORTISONE SOD SUCCINATE INJ/PF 100 MG/2 ML SDV IV SCH ×2 (14:44→21:47)
[2019-04-04] MEDS: ASCORBIC ACID 500 MG TABLET PO SCH ×2 (14:44→17:31)
[2019-04-04] MEDS: THIAMINE HCL 200 MG in NORMAL SALINE 100 ML IV SCH (17:31)
[2019-04-04] MEDS: LINEZOLID 600 MG/300 ML RTUPB IV SCH (17:32)
[2019-04-04 18:15] LABS: AMORPHOUS SEDIMENT,URINE TRACE /HPF; APPEARANCE,URINE CLOUDY; BILIRUBIN,URINE NEGATIVE (NEGATIVE); COLOR,URINE AMBER; GLUCOSE, URINE >=500 mg/dL (NEGATIVE); KETONES,URINE TRACE mg/dL (NEGATIVE); LEUKOCYTE ESTERASE,URINE NEGATIVE (NEGATIVE); NITRITE,URINE NEGATIVE (NEGATIVE); PROTEIN,URINE 100 mg/dL (NEGATIVE); UROBILINOGEN,URINE NEGATIVE mg/dL (<2.0)
--- NOTE | 2019-04-04 18:31 | Progress Note ---
Provider Note Provider Note: CARDIOLOGY PROGRESS NOTE by Dr. Chery Meraz on 04/04/2019 SUBJECTIVE: The patient worsened in spite of his CPAP/BiPAP, and in anticipation of his impending respiratory failure, due to the patient's tiring respiratory infection the patient has been intubated and is now in the ICU. At present is sedated. There is no arrhythmia seen on the monitor. The patient's blood pressure is on the lower side. The patient also seems to have adrenal insufficiency which is being addressed. In spite of being in septic shock and with a low blood pressure the patient's urine output is is good. PHYSICAL EXAMINATION: The patient appears to be chronically ill. He is intubated and sedated. Selected Entries 04/04/19 14:00 Temperature 96.5 F L Temperature Axillary Source Pulse Rate 87 Respiratory 18 Rate Blood Pressure 83/52 L [Left Upper Arm ] Blood Pressure 62 Mean [Left Upper Arm] Blood Pressure Supine Position [Left Upper Arm] O2 Sat by Pulse 99 Oximetry Oxygen Delivery Mechanical Method ( Ventilator includes room air) Percent of 80 Oxygen HEAD: Is atraumatic normocephalic. EYES: Pupils are equal round regular reactive to light accommodation. Extraocular movements are normal. The patient's conjunctiva shows pallor. There is no scleral icterus. EARS: Tympanic membranes are intact. External auditory canals are clear. NOSE: There is no deviated nasal septum. There is no inflammation nasal mucous membrane. MOUTH: Mucous membranes of mouth are moist. Tongue is moist. There is no ulcers. THROAT: There is no redness of the oropharynx. There is no exudates. SKIN: There is no skin rashes. There is no skin lesions. There is no petechia or ecchymosis. NECK: Is supple. There is no JVD. Carotids are equal there is no bruit. There is no lymphadenopathy. LUNGS: Trachea central. There is no accessory muscle respiration use. There is a few dry crackles in the left base greater than right base. No rales of CHF. HEART: S1-S2 is heard. S1 is of normal intensity. There is no S3 gallop. There is no S4 gallop. There is noes rub. There is systolic murmur left sternal border and the apex there is no rub. ABDOMEN: Soft. Nontender. There is no paraspinal megaly. Bowel sounds are well heard. EXTREMITIES: Femorals are diminished. There is no femoral bruits. Leg pulses are diminished. There is no pedal edema. There is no DVT or cellulitis. There is no calf tenderness. There is no cyanosis or clubbing. [employer] and PSYCHIATRIC: Not examined due to patient being intubated and sedated. Labs- All tests 24 hr 04/03/19 04/04/19 04/04/19 22:05 05:19 05:19 WBC 20.3 H RBC 2.66 L Hgb 7.8 L Hct 23.5 L MCV 89 MCH 29.3 MCHC 33.1 RDW 15.0 H Plt Count 379 Lymph % (Auto) Not Reportable [place] % (Auto) Not Reportable Eos % (Auto) Not Reportable Baso % (Auto) Not Reportable Absolute Neuts (auto) Not Reportable Absolute Lymphs (auto) Not Reportable Absolute Monos (auto) Not Reportable Absolute Eos (auto) Not Reportable Absolute Basos (auto) Not Reportable Total Counted 100 Seg Neutrophils % Not Reportable Seg Neuts % (Manual) 92 H Band Neutrophils % 1 L Lymphocytes % (Manual) 2 L Monocytes % (Manual) 5 Eosinophils % (Manual) 0 Basophils % (Manual) 0 Abs Neuts (Manual) 18.9 H Abs Lymphs (Manual) 0.4 L Abs Monocytes (Manual) 1.0 Absolute Eos (Manual) 0.0 Abs Basophils (Manual) 0.0 Nucleated RBCs 1 Platelet Comment ADEQUATE Polychromasia SLIGHT Anisocytosis SLIGHT Carbonic Acid HCO3/H2CO3 Ratio ABG pH ABG pCO2 ABG pO2 ABG HCO3 ABG Total CO2 ABG O2 Saturation ABG Base Excess FiO2 Sodium 132.7 L Potassium 4.8 Chloride 100 Carbon Dioxide 17 L Anion Gap 16 BUN 58 H Creatinine 1.74 H Est GFR ( Amer) 47 L Est GFR (MDRD) Non-Af 38 L Glucose 338 H POC Glucose 310 H Lactic Acid Calcium 8.7 Random Cortisol Urine Color Urine Appearance Urine pH Ur Specific Hostetter Urine Protein Urine Glucose (UA) Urine Ketones Urine Blood Urine Nitrite Urine Bilirubin Urine Urobilinogen Ur Leukocyte Esterase Urine WBC (Auto) Urine RBC (Auto) Urine Bacteria (Auto) Squamous Epi Cells Auto Amorphous Sediment Auto Urine Mucus (Auto) Urine Yeast (Budding) Urine Ascorbic Acid 04/04/19 04/04/19 04/04/19 09:27 10:27 12:15 WBC RBC Hgb Hct MCV MCH MCHC RDW Plt Count Lymph % (Auto) [place] % (Auto) Eos % (Auto) Baso % (Auto) Absolute Neuts (auto) Absolute Lymphs (auto) Absolute Monos (auto) Absolute Eos (auto) Absolute Basos (auto) Total Counted Seg Neutrophils % Seg Neuts % (Manual) Band Neutrophils % Lymphocytes % (Manual) Monocytes % (Manual) Eosinophils % (Manual) Basophils % (Manual) Abs Neuts (Manual) Abs Lymphs (Manual) Abs Monocytes (Manual) Absolute Eos (Manual) Abs Basophils (Manual) Nucleated RBCs Platelet Comment Polychromasia Anisocytosis Carbonic Acid HCO3/H2CO3 Ratio ABG pH ABG pCO2 ABG pO2 ABG HCO3 ABG Total CO2 ABG O2 Saturation ABG Base Excess FiO2 Sodium Potassium Chloride Carbon Dioxide Anion Gap BUN Creatinine Est GFR ( Amer) Est GFR (MDRD) Non-Af Glucose POC Glucose 382 H Lactic Acid 1.8 1.3 Calcium Random Cortisol Urine Color Urine Appearance Urine pH Ur Specific Hostetter Urine Protein Urine Glucose (UA) Urine Ketones Urine Blood Urine Nitrite Urine Bilirubin Urine Urobilinogen Ur Leukocyte Esterase Urine WBC (Auto) Urine RBC (Auto) Urine Bacteria (Auto) Squamous Epi Cells Auto Amorphous Sediment Auto Urine Mucus (Auto) Urine Yeast (Budding) Urine Ascorbic Acid 04/04/19 04/04/19 04/04/19 12:15 12:33 14:34 WBC RBC Hgb Hct MCV MCH MCHC RDW Plt Count Lymph % (Auto) [place] % (Auto) Eos % (Auto) Baso % (Auto) Absolute Neuts (auto) Absolute Lymphs (auto) Absolute Monos (auto) Absolute Eos (auto) Absolute Basos (auto) Total Counted Seg Neutrophils % Seg Neuts % (Manual) Band Neutrophils % Lymphocytes % (Manual) Monocytes % (Manual) Eosinophils % (Manual) Basophils % (Manual) Abs Neuts (Manual) Abs Lymphs (Manual) Abs Monocytes (Manual) Absolute Eos (Manual) Abs Basophils (Manual) Nucleated RBCs Platelet Comment Polychromasia Anisocytosis Carbonic Acid 1.38 H HCO3/H2CO3 Ratio 13:1 ABG pH 7.23 L ABG pCO2 45.7 H ABG pO2 163.5 H ABG HCO3 18.8 L ABG Total CO2 20.2 L ABG O2 Saturation 98.8 H ABG Base Excess -8.2 FiO2 80% Sodium 134.3 L Potassium 4.9 Chloride 103 Carbon Dioxide 16 L Anion Gap 15 BUN 66 H Creatinine 1.90 H Est GFR ( Amer) 42 L Est GFR (MDRD) Non-Af 35 L Glucose 339 H POC Glucose 314 H Lactic Acid Calcium 7.9 L Random Cortisol 24.30 Urine Color Urine Appearance Urine pH Ur Specific Hostetter Urine Protein Urine Glucose (UA) Urine Ketones Urine Blood Urine Nitrite Urine Bilirubin Urine Urobilinogen Ur Leukocyte Esterase Urine WBC (Auto) Urine RBC (Auto) Urine Bacteria (Auto) Squamous Epi Cells Auto Amorphous Sediment Auto Urine Mucus (Auto) Urine Yeast (Budding) Urine Ascorbic Acid 04/04/19 04/04/19 14:55 17:50 WBC RBC Hgb Hct MCV MCH MCHC RDW Plt Count Lymph % (Auto) [place] % (Auto) Eos % (Auto) Baso % (Auto) Absolute Neuts (auto) Absolute Lymphs (auto) Absolute Monos (auto) Absolute Eos (auto) Absolute Basos (auto) Total Counted Seg Neutrophils % Seg Neuts % (Manual) Band Neutrophils % Lymphocytes % (Manual) Monocytes % (Manual) Eosinophils % (Manual) Basophils % (Manual) Abs Neuts (Manual) Abs Lymphs (Manual) Abs Monocytes (Manual) Absolute Eos (Manual) Abs Basophils (Manual) Nucleated RBCs Platelet Comment Polychromasia Anisocytosis Carbonic Acid HCO3/H2CO3 Ratio ABG pH ABG pCO2 ABG pO2 ABG HCO3 ABG Total CO2 ABG O2 Saturation ABG Base Excess FiO2 Sodium Potassium Chloride Carbon Dioxide Anion Gap BUN Creatinine Est GFR ( Amer) Est GFR (MDRD) Non-Af Glucose POC Glucose Lactic Acid 1.7 Calcium Random Cortisol Urine Color HIMA Urine Appearance CLOUDY Urine pH 5.0 Ur Specific Hostetter 1.020 Urine Protein 100 H Urine Glucose (UA) >=500 H Urine Ketones TRACE H Urine Blood SMALL H Urine Nitrite NEGATIVE Urine Bilirubin NEGATIVE Urine Urobilinogen NEGATIVE Ur Leukocyte Esterase NEGATIVE Urine WBC (Auto) 6 Urine RBC (Auto) 6 Urine Bacteria (Auto) TRACE Squamous Epi Cells Auto <1 Amorphous Sediment Auto TRACE Urine Mucus (Auto) OCC Urine Yeast (Budding) PRESENT Urine Ascorbic Acid NEGATIVE Hip/Pelvis X-Ray 03/26/19 00:00 IMPRESSION: MILD IRREGULARITY OF THE RIGHT FEMORAL NECK, SUSPICIOUS FOR MINIMALLY DISPLACED FRACTURE. Shoulder X-Ray 03/26/19 00:00 IMPRESSION: NEGATIVE STUDY OF THE RIGHT SHOULDER. NO RADIOGRAPHIC EVIDENCE OF ACUTE INJURY. Cervical Spine CT 03/26/19 11:43 IMPRESSION: CHRONIC DEGENERATIVE CHANGES. NO ACUTE FINDINGS. Lower Extremity CT 03/26/19 11:43 IMPRESSION: IMPACTED FRACTURE OF THE RIGHT FEMORAL NECK. Chest X-Ray 03/26/19 14:13 IMPRESSION: Borderline cardiomegaly without pulmonary edema. Fluoroscopy 03/27/19 00:00 IMPRESSION: IMAGE(S) OBTAINED DURING PROCEDURE. Hip/Pelvis X-Ray 03/27/19 00:00 IMPRESSION: IMAGE(S) OBTAINED DURING PROCEDURE. Chest X-Ray 03/29/19 00:00 IMPRESSION: CHRONIC INTERSTITIAL CHANGES. POSSIBLE DEVELOPING INFILTRATE/ PNEUMONIA IN THE RIGHT UPPER LOBE. SIMILAR FINDING IN THE LEFT COSTOPHRENIC ANGLE. Chest X-Ray 04/03/19 00:00 IMPRESSION: Bilateral pneumonia. No significant change. Chest X-Ray 04/04/19 08:56 IMPRESSION: Diffuse parenchymal opacities without improvement. SUPPORT DEVICE(S) IN EXPECTED LOCATIONS. IMPRESSION/RECOMMENDATION: 1. Acute respiratory failure hypercapnic most likely secondary to pneumonia 2. Septic shock: Blood pressure on the lower side. Consider inotropes versus starting the patient on vasopressin for septic shock. Note that the patient's also has adrenal insufficiency which is being treated with steroids. 3. Bibasilar pneumonia: Continue antibiotics. 4.. Acute anemia: Most likely secondary to the patient's hip surgery/hip fracture. Agree with blood transfusion to keep the hemoglobin 10 or above. Hemoglobin stable. 5. Coronary artery disease and history of old myocardial infarction: No evidence of angina. No definite evidence of nondistention IN. Continue current anti-CAD medication. Hence would increase long-acting beta-khanh to 25 mg p.o. twice daily and also increase losartan to 25 mg p.o. every 12 hours.. Continue aspirin and isosorbide mononitrate. The patient also is on Plavix would continue this. 6. Cardiomyopathy with moderately reduced LV ejection fraction: Seems to be compensated no overt evidence of congestive heart failure. 7. Hypertension: Blood pressure is well controlled continue current medications. 8. Renal Failure: Seems to be worsening. Most likely secondary to infection 9. Diabetes mellitus type 2 [id number]. 10.Status post surgery for right fracture due to accidental falls. 11.. Elevated troponin I: This is a type II supply demand mismatch IN secondary to the patient's acute anemia, acute renal insufficiency and pneumonia. No definite evidence of non-ST elevation IN. Hence we will treat underlying causes. Discussed with the patient's son. Discussed with the senior caregiver. Medical regimen and management plan discussed with senior caregiver. Medical decision making is of high complexity. 45 minutes spent with patient with more than 50% time spent in direct patient care. Will follow.
[2019-04-04] MEDS ORDERED: FENTANYL CITRATE INJ/PF 100 MCG/2 ML AMPUL IV PRN (20:01)
[2019-04-04 20:54] LABS: A TYPE INFLUENZA AG NEGATIVE (NEGATIVE); B INFLUENZA AG NEGATIVE (NEGATIVE)
[2019-04-04] MEDS: INSULIN GLARGINE,HUM.REC.ANLOG 1,000 UNIT/10 ML VIAL SUBCUT SCH (21:46)
[2019-04-04] MEDS: SENNOSIDES/DOCUSATE 8.6-50 MG 1 EACH TABLET NG SCH (22:00)
[2019-04-04] MEDS ORDERED: ALBUMIN HUMAN 500 ML IV ONE ×2 (23:17→23:30)
[2019-04-04] MEDS ORDERED: NORMAL SALINE 1000 ML 250 ML IV ONE (23:17)
--- NOTE | 2019-04-04 23:39 | Operative Report ---
Bedside Procedure - History of Present Illness History of Present Illness: HPI: Mr Pagan is a 73 year-old male with a past medical history significant for FL/NSTEMI, CAD s/p coronary stents, HFrEF 40-45%, pulmonary HTN, essential HTN, HLD, DM II, TIA, and GERD who presented to [facility] after sustaining an impacted right femoral neck fracture after a fall. To note, Mr Pagan has a fairly frequent fall history per medical record review and in speaking with his this AM. Sounds like he may have the beginnings of dementia as well Mrs Pagan reported. Upon looking back at his CXR on 03/26/2019, it appears that Mr Pagan may have had a subtle LLL infiltrate which could be consistent with a community acquired pneumonia that has unfortunately gotten worse during his hospitalization. Dr Beverly consulted the ICU team this morning for worsening acute hypoxic respiratory failure for which the patient definitely needs ICU at this time, likely requiring intubation for work of breathing. I discussed this with Mrs Pagan who is unfortunately also admitted with pneumonia in the same cohort room as her , as well as their daughter. They are okay with intubation at this time, but will discuss amongst themselves as a family later today what Mr Pagan's quality of life is at baseline to decide if they should pursue the comfort care route. I had a lengthy discussion recommending that we give Mr Pagan a fair chance at recovering from his pneumonia, but if he were to continue to need mechanical ventilation 7-14 days, then revisit goals and quality of life. Procedure: arterial line insertion Proceduralist: DESTINEE Cosby Indication: septic shock, CHF Anesthesia: 3 mL 1% Lidocaine without Epinephrine EBL: 3 Ml Complications: none Post-procedure Dx: hypovolemia, hypotension Patient placed in proper procedural position followed by prepping and draping in usual sterile fashion. Utilizing ultrasound the left radial artery was visualized and appeared free of thrombus. An 18-gauge introducer needle was then visualized entering the left radial artery with return of pulsatile blood. A guidewire was then inserted through the needle into the left radial artery and the needle was subsequently removed. The wire was confirmed to be in the left radial artery in 2 views utilizing ultrasound. A small skin stab incision was made to allow for introduction of the catheter without kinking/bending at the level of the skin. Next, an 18-gauge catheter was advanced over the wire into the left radial artery and the wire was subsequently removed, again noting pulsatile blood from the end of the catheter. Transducer tubing was hooked up to the catheter, the catheter was sutured into place, a Biopatch was applied, and a sterile occlusive transparent dressing was applied. EBL 3 mL. Patient tolerated the procedure well. DBP 38 and MAP 55 upon insertion of arterial line compared to 57 and 68 mm Hg respectively on the non-invasive cuff reading. Patient has pre-renal component of hypovolemia. Iniating 250 mL NS bolus followed by 500 mL 5% albumin bolus. BP already with significant improvement during 250 mL NS bolus. Will proceed with caution. May still end up needing vasopressor therapy or inotropic effect depending on course with respect to acute illness on top of underlying CHF/pulm HTN. Indication for Procedure: Septic shock Date: 04/04/19 Provider: JULIAN VALLE
[2019-04-05 00:11] LABS: ARTERIAL BLOOD BASE EXCESS -8.9 mmol/L; ARTERIAL BLOOD H2CO3 1.11 mmol/L (1.05-1.35); ARTERIAL BLOOD O2 SATURATION 96.1 % (94-98); ARTERIAL BLOOD PH 7.28 (7.35-7.45); ARTERIAL BLOOD TOTAL CO2 18.1 mmol/L (23-27)
[2019-04-05 00:15] LABS: ARTERIAL BLOOD FIO2 45%
[2019-04-05] MEDS ORDERED: VASOPRESSIN INJ 20 UNIT/1 ML VIAL ONE (00:23)
[2019-04-05] MEDS ORDERED: DEXTROSE 5%-WATER 250 ML with VASOPRESSIN 100 UNIT IV PRN ×2 (00:27)
[2019-04-05] MEDS: IPRATROPIUM/ALBUTEROL 0.5-2.5 MG/3 ML AMPUL NEB SCH ×4 (00:29→23:51)
[2019-04-05] MEDS: PIPERACILLIN SODIUM/TAZOBACTAM 3.375 GM in NORMAL SALINE 100 ML IV SCH ×5 (00:38→23:11)
[2019-04-05] MEDS: ASCORBIC ACID 500 MG TABLET PO SCH ×5 (00:40→23:11)
[2019-04-05] MEDS: PROPOFOL 1,000 MG/100 ML INFUS..BTL IV PRN ×2 (01:22→10:37)
--- NOTE | 2019-04-05 02:27 | Progress Note ---
Provider Note Provider Note: Mrs Candelaria Pagan 02/08/1950 [id number] granted me verbal permission to look at lab work in her electronic medical record current admission which was witnessed by four of her children in the room of her , Mr Mike Pagan in ICU 605-A on 04/04/2019 at 21:15 pm to determine if she had positive flu or bacterial cultures that would provide insight into Mr Pagan's pneumonia, since they are both admitted with pneumonia at this time. Her results are influenza A/B negative, blood Cx's are no growth thus far, and there is no sputum Cx as a reference. Though there is no insight into potentially targeting therapy for Mr Pagan at this time, I am grateful for Mrs Pagan for allowing me the opportunity to try to help her .
[2019-04-05] MEDS: INSULIN LISPRO 100 UNIT/ML 3 ML VIAL SUBCUT SCH ×7 (02:37→21:46)
[2019-04-05] MEDS ORDERED: NORMAL SALINE 1000 ML 500 ML IV ONE (02:38)
[2019-04-05] MEDS ORDERED: NORMAL SALINE 1000 ML 250 ML IV ONE (02:38)
[2019-04-05] MEDS ORDERED: INSULIN GLARGINE,HUM.REC.ANLOG 1,000 UNIT/10 ML VIAL SUBCUT SCH (02:45)
[2019-04-05] MEDS: ALBUMIN HUMAN 12.5 GM/50 ML RTUINJ IV SCH ×2 (03:25→05:19)
[2019-04-05] MEDS ORDERED: INSULIN LISPRO 100 UNIT/ML 3 ML VIAL SUBCUT SCH (04:00)
[2019-04-05] MEDS: NORMAL SALINE 1000 ML 2,300 ML IV PRN (04:08)
[2019-04-05] MEDS: THIAMINE HCL 200 MG in NORMAL SALINE 100 ML IV SCH ×2 (05:19→17:47)
[2019-04-05] MEDS: HYDROCORTISONE SOD SUCCINATE INJ/PF 100 MG/2 ML SDV IV SCH ×3 (05:20→21:44)
[2019-04-05] MEDS: PANTOPRAZOLE SODIUM 40 MG PACKET.DR NG SCH (05:20)
[2019-04-05] MEDS: LINEZOLID 600 MG/300 ML RTUPB IV SCH ×2 (05:24→17:53)
[2019-04-05 05:58] LABS: ARTERIAL BLOOD BASE EXCESS -10.4 mmol/L; ARTERIAL BLOOD H2CO3 1.19 mmol/L (1.05-1.35); ARTERIAL BLOOD HCO3 16.3 mmol/L (20-24); ARTERIAL BLOOD O2 SATURATION 96.9 % (94-98); ARTERIAL BLOOD PCO2 39.6 mmHg (35-45); ARTERIAL BLOOD PH 7.23 (7.35-7.45); ARTERIAL BLOOD PO2 105.6 mmHg (80-100); ARTERIAL BLOOD TOTAL CO2 17.5 mmol/L (23-27)
[2019-04-05 06:01] LABS: ARTERIAL BLOOD FIO2 45%
[2019-04-05 06:07] LABS: HEMATOCRIT 20.2 % (37.9-51.0); MEAN CORPUSCULAR HEMOGLOBIN 29.8 pg (27.0-33.4); MEAN CORPUSCULAR HGB CONC 33.4 g/dL (32.0-36.0); MEAN CORPUSCULAR VOLUME 89 fl (80-97); PLATELET COUNT 322 10^3/uL (150-450); RED BLOOD COUNT 2.27 10^6/uL (4.35-5.55); RED CELL DISTRIBUTION WIDTH 15.4 % (11.5-14.0); WHITE BLOOD COUNT 17.8 10^3/uL (4.0-10.5)
[2019-04-05 06:10] LABS: HEMOGLOBIN 6.8 g/dL (13.5-17.0)
[2019-04-05 06:26] LABS: ALBUMIN 2.8 g/dL (3.5-5.0); ALKALINE PHOSPHATASE 68 U/L (38-126); ANION GAP 15 (5-19); ASPARTATE AMINO TRANSFERASE 736 U/L (17-59); BILIRUBIN,DIRECT 1.1 mg/dL (0.0-0.4); BILIRUBIN,TOTAL 1.2 mg/dL (0.2-1.3); BLOOD UREA NITROGEN 70 mg/dL (7-20); CARBON DIOXIDE 16 mmol/L (22-30); CHLORIDE 105 mmol/L (98-107); GLUCOSE 216 mg/dL (75-110); PHOSPHORUS 6.6 mg/dL (2.5-4.5); POTASSIUM 5.3 mmol/L (3.6-5.0); TOTAL PROTEIN 5.5 g/dL (6.3-8.2)
[2019-04-05 07:12] LABS: ABSOLUTE LYMPHOCYTES# (MANUAL) 1.2 10^3/uL (0.5-4.7); ABSOLUTE MONOCYTES # (MANUAL) 0.5 10^3/uL (0.1-1.4); ANISOCYTOSIS SLIGHT; BAND NEUTROPHILS % (MANUAL) 3 % (3-5); BASOPHILS % (MANUAL) 0 % (0-2); EOSINOPHILS % (MANUAL) 0 % (0-6); HYPOCHROMASIA 3+; LYMPHOCYTES % (MANUAL) 7 % (13-45); MONOCYTES % (MANUAL) 3 % (3-13); NUCLEATED RED BLOOD CELLS 1 /100 WBC (0); PLATELET COMMENT ADEQUATE; SEGMENTED NEUTROPHILS % (MAN) 87 % (42-78); TOTAL CELLS COUNTED 100
[2019-04-05] MEDS ORDERED: NORMAL SALINE 250 ML IV PRN ×2 (08:46)
--- NOTE | 2019-04-05 08:47 | RADIOLOGY REPORT (SQ) ---
EXAM DESCRIPTION: CHEST SINGLE VIEW COMPLETED DATE/TIME: 04/05/2019 6:58 am REASON FOR STUDY: respiratory failure, pneumonia COMPARISON: 04/04/2019 EXAM PARAMETERS: NUMBER OF VIEWS: One view TECHNIQUE: Single frontal radiograph of the chest. RADIATION DOSE: N/A LIMITATIONS: None. FINDINGS: TEMPORARY SUPPORT DEVICES:ETT in expected location. NG tube courses below the amor-diaphr agm in to the stomach. LUNGS AND PLEURA: Technical differences, however improved aeration of the lungs. No effusions. No ma sses. No pneumothorax. MEDIASTINUM AND HILAR STRUCTURES: No masses. Contour normal. HEART AND VASCULAR STRUCTURES: Heart normal in size. normal vascularity. Aorta normal for age. BONES: No acute findings. OTHER: No other significant finding. IMPRESSION: Improved aeration of the lungs. SUPPORT DEVICE(S) IN EXPECTED LOCATIONS. TECHNICAL DOCUMENTATION: JOB ID: [id number] 2010 [employer]- All Rights Reserved Reading location - IP/workstation name: [email or web address]
[2019-04-05] MEDS: INSULIN GLARGINE,HUM.REC.ANLOG 1,000 UNIT/10 ML VIAL SUBCUT SCH ×2 (10:28→18:19)
[2019-04-05] MEDS: DEXTROSE 5%-WATER 1000 ML 1,000 ML with SODIUM BICARBONATE 150 MEQ IV PRN ×2 (10:28)
[2019-04-05] MEDS ORDERED: FUROSEMIDE INJ/PF 100 MG/10 ML SDV IV ONE (12:00)
--- NOTE | 2019-04-05 13:23 | Progress Note ---
Provider Note Provider Note: CARDIOLOGY PROGRESS NOTE by Dr. Chery Meraz on 04/05/2019. SUBJECTIVE: The patient is intubated and sedated. There is no arrhythmia seen on the monitor. He has been started on vasopressin and his blood pressure has come up. He also had an arterial line placed. He did receive about 7 L of urine and put out only about 297 cc of urine. The patient's renal function is worsened. His chest x-ray shows slight improvement. PHYSICAL EXAMINATION: The patient appears to be chronically ill. He is intubated and sedated. Selected Entries 04/05/19 12:00 Temperature 97.8 F Temperature Axillary Source Pulse Rate 84 Respiratory 20 Rate Blood Pressure 122/55 L [Left Lower Arm ] Blood Pressure 77 Mean [Left Lower Arm] Blood Pressure Supine Position [Left Lower Arm] Blood Pressure 122 Systolic [Left Lower Arm] O2 Sat by Pulse 95 Oximetry Oxygen Delivery Mechanical Method ( Ventilator includes room air) Percent of 40 Oxygen HEAD: Is atraumatic normocephalic. EYES: Pupils are equal round regular reactive to light accommodation. Extraocular movements are normal. The patient's conjunctiva shows pallor. There is no scleral icterus. EARS: Tympanic membranes are intact. External auditory canals are clear. NOSE: There is no deviated nasal septum. There is no inflammation nasal mucous membrane. MOUTH: Mucous membranes of mouth are moist. Tongue is moist. There is no ulcers. THROAT: There is no redness of the oropharynx. There is no exudates. SKIN: There is no skin rashes. There is no skin lesions. There is no petechia or ecchymosis. NECK: Is supple. There is no JVD. Carotids are equal there is no bruit. There is no lymphadenopathy. LUNGS: Trachea central. There is no accessory muscle respiration use. There is a few dry crackles in the left base greater than right base. No rales of CHF. HEART: S1-S2 is heard. S1 is of normal intensity. There is no S3 gallop. There is no S4 gallop. There is noes rub. There is systolic murmur left sternal border and the apex there is no rub. ABDOMEN: Soft. Nontender. There is no paraspinal megaly. Bowel sounds are well heard. EXTREMITIES: Femorals are diminished. There is no femoral bruits. Leg pulses are diminished. There is no pedal edema. There is no DVT or cellulitis. There is no calf tenderness. There is no cyanosis or clubbing. [employer] and PSYCHIATRIC: Not examined due to patient being intubated and sedated. IMPRESSION/RECOMMENDATION: 1. Acute respiratory failure hypercapnic most likely secondary to pneumonia 2. Septic shock: Blood pressure on the lower side. Blood pressure now is good with the patient being on vasopressin. Note that the patient's also has adrenal insufficiency which is being treated with steroids. 3. Bibasilar pneumonia: Continue antibiotics. 4.. Acute anemia: Most likely secondary to the patient's hip surgery/hip fracture. Agree with blood transfusion to keep the hemoglobin 10 or above. The patient's hemoglobin is further dropped to 6.8. He will be receiving blood transfusion. 5. Coronary artery disease and history of old myocardial infarction: No evidence of angina. No definite evidence of nondistention [place]. Continue current anti-CAD medication. Hence would increase long-acting beta-khanh to 25 mg p.o. twice daily and also increase losartan to 25 mg p.o. every 12 hours.. Continue aspirin and isosorbide mononitrate. The patient also is on Plavix would continue this. 6. Cardiomyopathy with moderately reduced LV ejection fraction: Seems to be compensated no overt evidence of congestive heart failure. 7. Hypertension: Blood pressure has come up now with recent treatment of the septic shock with vasopressin. 8. Renal Failure: Seems to be worsening. Most likely secondary to infection. At present the patient is stage IV chronic kidney disease. With a GFR around 21. The patient with declining urine output. We will give 60 mg of IV Lasix as discussed with the manager group. 9. Diabetes mellitus type 2 [id number]. 10.Status post surgery for right fracture due to accidental falls. 11.. Elevated troponin I: This is a type II supply demand mismatch VA secondary to the patient's acute anemia, acute renal insufficiency and pneumonia. No definite evidence of non-ST elevation VA. Hence we will treat underlying causes. Medications reviewed. Medications added. Medical regimen and management plan discussed with the manager group. Medical decision making is of high complexity. Discussed the patient's condition with the patient's. 45 minutes spent with patient more than 50% of time spent direct patient care. Will follow.
--- NOTE | 2019-04-05 14:34 | Operative Report ---
Bedside Procedure - History of Present Illness History of Present Illness: Septic shock and need for pressors Indication for Procedure: Lack of good IV access Date: 04/04/19 Provider: SHARDA DUBON - Central Line Right Internal jugular Time completed: 14:00 Consent obtained: Yes Central line pre-insertion: Sterile PPE donned, Chloraprep applied, Sterile drapes applied Central line lumen type: Triple Anesthetic type: 1% Lidocaine Ultrasound guided: No Line secured with sutures: Yes Central line post-insertion: Blood return from lumens, Biopatch applied, Sutured, Sterile dressing applied, Position confirmed w/ CXR Complications: No Notes: 04/05/19 14:32 Line near R atrium. No ectopy
--- NOTE | 2019-04-05 15:01 | RADIOLOGY REPORT (SQ) ---
EXAM DESCRIPTION: CHEST SINGLE VIEW COMPLETED DATE/TIME: 04/05/2019 2:36 pm REASON FOR STUDY: Central line placement RIJ. COMPARISON: 04/05/2019 0649 hours NUMBER OF VIEWS: One view. TECHNIQUE: Single frontal radiographic view of the chest acquired. LIMITATIONS: None. FINDINGS: Central venous access catheter placed via right IJ approach. Catheter tip at right atriu m. No pneumothorax. Radiographic appearance of the chest otherwise stable. IMPRESSION: CENTRAL VENOUS ACCESS CATHETER IN APPROPRIATE LOCATION. NO PNEUMOTHORAX. NEW CENTRAL L INE. TECHNICAL DOCUMENTATION: JOB ID: [id number] 2010 [employer]- All Rights Reserved Reading location - IP/workstation name: [email or web address]
[2019-04-05] MEDS: HEPARIN SOD (PORCINE) 5,000 UNIT/ML 1 ML VIAL SUBCUT SCH ×2 (15:31→21:44)
--- NOTE | 2019-04-05 17:05 | Progress Note ---
Provider Note Provider Note: Although CXR shows central line in appropriate position it was pulled back 2cm and resutured sterilely as it was in the RA.
[2019-04-05] MEDS: HYDROMORPHONE HCL INJ/PF 2 MG/ML AMPULE IV PRN (17:16)
--- NOTE | 2019-04-05 17:19 | PDOC CRITICAL CARE PROG REPORT ---
General Date:: 04/05/19 ICU Day:: 2 Ventilator Day:: 2 Hospital Day:: 2 Resuscitation Status: Full Code Events in the past 12 to 24 Hours:: Central line placed and patient on vasopressin. Review of systems relevant to events:: Respiratory and CV Reason for ICU Addmission:: Hypoxic respiratory failure due to pneumonia. Intubated and in septic shock - Medications: Medications reviewed and adjusted accordingly: Yes Vasopressors:: Vasopressin Sedation:: Propofol. Physical Exam Vital Signs: Temp Pulse Resp BP Pulse Ox 98.3 F 86 22 H 127/56 H 94 04/05/19 16:00 04/05/19 16:00 04/05/19 16:00 04/05/19 16:00 04/05/19 16:00 Intake & Output 04/04/19 04/05/19 04/06/19 06:59 06:59 06:59 Intake Total 1810 7180 1364 Output Total 3375 297 515 Balance -1565 6883 849 Weight 81.8 kg 88.4 kg Weight/Height Weight 88.4 kg Height 6 ft 2 in General appearance: PRESENT: no acute distress, thin Head exam: PRESENT: atraumatic, normocephalic Eye exam: PRESENT: conjunctiva pink, EOMI, PERRLA. ABSENT: scleral icterus Ear exam: PRESENT: normal external ear exam Mouth exam: PRESENT: moist, tongue midline Neck exam: PRESENT: other - RIJ central line. Respiratory exam: PRESENT: crackles, rhonchi, unlabored Cardiovascular exam: PRESENT: RRR. ABSENT: diastolic murmur, rubs, systolic murmur Vascular exam: PRESENT: normal capillary refill GI/Abdominal exam: PRESENT: normal bowel sounds, soft. ABSENT: distended, guarding, mass, organolmegaly, rebound, tenderness Rectal exam: PRESENT: deferred Gentrourinary exam: PRESENT: indwelling catheter Extremities exam: PRESENT: full ROM. ABSENT: calf tenderness, clubbing, pedal edema Neurological exam: PRESENT: other - Sedated. Skin exam: PRESENT: dry, intact, warm. ABSENT: cyanosis, rash Tubes/Lines: PRESENT: Endotracheal Tube, Central Line, Arterial Catheter, Nasogastic Tube Laboratory/Radiographs Laboratory Results: 04/05/19 05:39 04/05/19 05:39 04/04/19 04/04/19 04/05/19 17:50 23:48 05:39 WBC 17.8 H RBC 2.27 L Hgb 6.8 L Hct 20.2 L MCV 89 MCH 29.8 MCHC 33.4 RDW 15.4 H Plt Count 322 Seg Neutrophils % Not Reportable Carbonic Acid 1.11 HCO3/H2CO3 Ratio 15:1 ABG pH 7.28 L ABG pCO2 37.0 ABG pO2 91.0 ABG HCO3 17.0 L ABG O2 Saturation 96.1 ABG Base Excess -8.9 FiO2 45% Sodium Potassium Chloride Carbon Dioxide Anion Gap BUN Creatinine Est GFR ( Amer) Glucose Calcium Phosphorus Magnesium Total Bilirubin AST Alkaline Phosphatase Total Protein Albumin Urine Color HIMA Urine Appearance CLOUDY Urine pH 5.0 Ur Specific Winn 1.020 Urine Protein 100 H Urine Glucose (UA) >=500 H Urine Ketones TRACE H Urine Blood SMALL H Urine Nitrite NEGATIVE Ur Leukocyte Esterase NEGATIVE Urine WBC (Auto) 6 Urine RBC (Auto) 6 Blood Type Antibody Screen 04/05/19 04/05/19 04/05/19 05:39 05:39 09:34 WBC RBC Hgb Hct MCV MCH MCHC RDW Plt Count Seg Neutrophils % Carbonic Acid 1.19 HCO3/H2CO3 Ratio 13:1 ABG pH 7.23 L ABG pCO2 39.6 ABG pO2 105.6 H ABG HCO3 16.3 L ABG O2 Saturation 96.9 ABG Base Excess -10.4 FiO2 45% Sodium 136.4 L Potassium 5.3 H Chloride 105 Carbon Dioxide 16 L Anion Gap 15 BUN 70 H Creatinine 2.94 H Est GFR ( Amer) 25 L Glucose 216 H Calcium 8.0 L Phosphorus 6.6 H Magnesium 2.3 Total Bilirubin 1.2 AST 736 H Alkaline Phosphatase 68 Total Protein 5.5 L Albumin 2.8 L Urine Color Urine Appearance Urine pH Ur Specific Winn Urine Protein Urine Glucose (UA) Urine Ketones Urine Blood Urine Nitrite Ur Leukocyte Esterase Urine WBC (Auto) Urine RBC (Auto) Blood Type B NEGATIVE Antibody Screen NEGATIVE 03/26/19 03/26/19 03/31/19 07:06 07:06 03:31 Creatine Kinase 127 164 CK-MB (CK-2) Troponin I < 0.012 03/31/19 03/31/19 03/31/19 03:31 05:20 05:20 Creatine Kinase 162 CK-MB (CK-2) 1.03 1.23 Troponin I 0.342 0.376 03/31/19 03/31/19 03/31/19 10:39 10:39 16:38 Creatine Kinase 157 115 CK-MB (CK-2) 1.36 Troponin I 0.301 03/31/19 16:38 Creatine Kinase CK-MB (CK-2) 1.31 Troponin I 0.323 Impressions: Shoulder X-Ray 03/26/19 00:00 IMPRESSION: NEGATIVE STUDY OF THE RIGHT SHOULDER. NO RADIOGRAPHIC EVIDENCE OF ACUTE INJURY. Cervical Spine CT 03/26/19 11:43 IMPRESSION: CHRONIC DEGENERATIVE CHANGES. NO ACUTE FINDINGS. Lower Extremity CT 03/26/19 11:43 IMPRESSION: IMPACTED FRACTURE OF THE RIGHT FEMORAL NECK. Fluoroscopy 03/27/19 00:00 IMPRESSION: IMAGE(S) OBTAINED DURING PROCEDURE. Hip/Pelvis X-Ray 03/27/19 00:00 IMPRESSION: IMAGE(S) OBTAINED DURING PROCEDURE. Chest X-Ray 04/05/19 02:45 IMPRESSION: Improved aeration of the lungs. SUPPORT DEVICE(S) IN EXPECTED LOCATIONS. All labs, radiographs, diagnostic studies and EKGs were personally reviewed: Yes In addition, reports of radiographic and diagnostic studies were read: Yes Assessment and Plan - Diagnosis (1) Septic shock Is this a current diagnosis for this admission?: Yes Plan: Septic shock from pneumonia. On vasopressin. Will attempt to begin weaning of vasopressin in AM. MAP > 75. Also on Vit C and thiamine. (2) Hypoadrenalism Is this a current diagnosis for this admission?: Yes Plan: Cortisol only 24, now on stress dose steroids. (3) Acute respiratory failure with hypoxia Is this a current diagnosis for this admission?: Yes Plan: He is on the ventilator and not ready to wean yet. (4) Chronic HFrEF (heart failure with reduced ejection fraction) Is this a current diagnosis for this admission?: Yes Plan: EF 40-45%. Watch fluids carefully. May need milrinone. (5) Pneumonia Qualifiers: Pneumonia type: due to unspecified organism Laterality: bilateral Lung location: unspecified part of lung Qualified Code(s): J18.9 - Pneumonia, unspecified organism Is this a current diagnosis for this admission?: Yes Plan: Most likely a CAP as his is hospitalized for the same disease. Plan Summary: Maintain both vent and vasopressin and begin weaning both in AM. Critical Time Critical Time (minutes): 40 Level of Care: ICU Anticipated discharge: SNF Within: Other - Too soon to tell. -: 1. The care of a critical patient is a dynamic process. This note is a transportation services representative synopsis but static in nature. The timeframe for treatments given in order is not necessarily the actual time these treatments may have been done. 2. This patient requires critical care secondary to ongoing requirements for therapy not offered or safe outside the critical care environment. Transfer to a lower level of care will result in altered life or limb morbidity and mortality. 3. Multidisciplinary rounds completed. 4. ABCDE bundle addressed.
[2019-04-05 18:36] LABS: HEMATOCRIT 24.5 % (37.9-51.0); MEAN CORPUSCULAR HEMOGLOBIN 28.3 pg (27.0-33.4); MEAN CORPUSCULAR HGB CONC 32.5 g/dL (32.0-36.0); MEAN CORPUSCULAR VOLUME 87 fl (80-97); PLATELET COUNT 317 10^3/uL (150-450); RED BLOOD COUNT 2.81 10^6/uL (4.35-5.55); RED CELL DISTRIBUTION WIDTH 17.5 % (11.5-14.0); WHITE BLOOD COUNT 19.9 10^3/uL (4.0-10.5)
[2019-04-05 18:54] LABS: ABSOLUTE MONOCYTES # (MANUAL) 0.6 10^3/uL (0.1-1.4); BAND NEUTROPHILS % (MANUAL) 1 % (3-5); BASOPHILS % (MANUAL) 0 % (0-2); EOSINOPHILS % (MANUAL) 0 % (0-6); LYMPHOCYTES % (MANUAL) 10 % (13-45); MONOCYTES % (MANUAL) 3 % (3-13); SEGMENTED NEUTROPHILS % (MAN) 86 % (42-78); TOTAL CELLS COUNTED 100
[2019-04-05 18:55] LABS: ANISOCYTOSIS 1+
[2019-04-05 18:56] LABS: OVALOCYTES SLIGHT; PLATELET CLUMPS PRESENT; PLATELET COMMENT ADEQUATE; PLATELET LARGE PRESENT; POIKILOCYTOSIS SLIGHT
[2019-04-05] MEDS: MILRINONE LACTATE/D5W 20 MG/100 ML RTUINJ IV PRN (19:47)
[2019-04-05] MEDS ORDERED: FLUCONAZOLE IV ONE (20:00)
[2019-04-05] MEDS ORDERED: [UNRECOGNIZED DRUG - OTHER] IV ONE (20:00)
[2019-04-05] MEDS ORDERED: ALBUMIN HUMAN 12.5 GM/50 ML RTUINJ IV SCH (21:00)
[2019-04-05] MEDS: SENNOSIDES/DOCUSATE 8.6-50 MG 1 EACH TABLET NG SCH (21:45)
[2019-04-05 22:38] LABS: ARTERIAL BLOOD BASE EXCESS -9.4 mmol/L; ARTERIAL BLOOD H2CO3 1.23 mmol/L (1.05-1.35); ARTERIAL BLOOD HCO3 17.3 mmol/L (20-24); ARTERIAL BLOOD O2 SATURATION 92.4 % (94-98); ARTERIAL BLOOD PCO2 40.8 mmHg (35-45); ARTERIAL BLOOD PH 7.25 (7.35-7.45); ARTERIAL BLOOD PO2 73.6 mmHg (80-100); ARTERIAL BLOOD TOTAL CO2 18.6 mmol/L (23-27)
[2019-04-05 22:49] LABS: ARTERIAL BLOOD FIO2 40%
[2019-04-05 22:53] LABS: ANION GAP 15 (5-19); BLOOD UREA NITROGEN 79 mg/dL (7-20); CALCIUM 7.7 mg/dL (8.4-10.2); CARBON DIOXIDE 18 mmol/L (22-30); CHLORIDE 102 mmol/L (98-107); GLUCOSE 260 mg/dL (75-110); POTASSIUM 4.6 mmol/L (3.6-5.0)
[2019-04-06] MEDS: DEXTROSE 5%-WATER 1000 ML 1,000 ML with SODIUM BICARBONATE 150 MEQ IV PRN ×6 (00:43→21:46)
[2019-04-06] MEDS: INSULIN LISPRO 100 UNIT/ML 3 ML VIAL SUBCUT SCH ×6 (01:49→21:56)
[2019-04-06] MEDS: PROPOFOL 1,000 MG/100 ML INFUS..BTL IV PRN ×3 (02:06→20:26)
[2019-04-06] MEDS: MILRINONE LACTATE/D5W 20 MG/100 ML RTUINJ IV PRN ×2 (04:06→23:31)
[2019-04-06] MEDS: THIAMINE HCL 200 MG in NORMAL SALINE 100 ML IV SCH ×2 (05:32→17:13)
[2019-04-06] MEDS: LINEZOLID 600 MG/300 ML RTUPB IV SCH ×2 (05:33→17:14)
[2019-04-06] MEDS: PIPERACILLIN SODIUM/TAZOBACTAM 3.375 GM in NORMAL SALINE 100 ML IV SCH ×4 (05:33→23:32)
[2019-04-06] MEDS: PANTOPRAZOLE SODIUM 40 MG PACKET.DR NG SCH (05:33)
[2019-04-06] MEDS: HEPARIN SOD (PORCINE) 5,000 UNIT/ML 1 ML VIAL SUBCUT SCH ×3 (05:33→21:47)
[2019-04-06] MEDS: HYDROCORTISONE SOD SUCCINATE INJ/PF 100 MG/2 ML SDV IV SCH ×3 (05:33→21:47)
[2019-04-06] MEDS: ASCORBIC ACID 500 MG TABLET PO SCH ×4 (05:34→23:31)
[2019-04-06 05:40] LABS: MEAN CORPUSCULAR HEMOGLOBIN 28.1 pg (27.0-33.4); MEAN CORPUSCULAR HGB CONC 32.6 g/dL (32.0-36.0); MEAN CORPUSCULAR VOLUME 86 fl (80-97); PLATELET COUNT 329 10^3/uL (150-450); RED BLOOD COUNT 2.66 10^6/uL (4.35-5.55); RED CELL DISTRIBUTION WIDTH 17.6 % (11.5-14.0); WHITE BLOOD COUNT 19.8 10^3/uL (4.0-10.5)
[2019-04-06 05:41] LABS: ARTERIAL BLOOD BASE EXCESS -7.1 mmol/L; ARTERIAL BLOOD H2CO3 1.31 mmol/L (1.05-1.35); ARTERIAL BLOOD HCO3 19.3 mmol/L (20-24); ARTERIAL BLOOD O2 SATURATION 94.6 % (94-98); ARTERIAL BLOOD PCO2 43.4 mmHg (35-45); ARTERIAL BLOOD PH 7.27 (7.35-7.45); ARTERIAL BLOOD PO2 82.3 mmHg (80-100); ARTERIAL BLOOD TOTAL CO2 20.7 mmol/L (23-27)
[2019-04-06 05:42] LABS: ARTERIAL BLOOD FIO2 45%
[2019-04-06 05:44] LABS: HEMOGLOBIN 7.5 g/dL (13.5-17.0)
[2019-04-06 05:49] LABS: ALBUMIN 2.5 g/dL (3.5-5.0); ALKALINE PHOSPHATASE 82 U/L (38-126); ANION GAP 15 (5-19); ASPARTATE AMINO TRANSFERASE 284 U/L (17-59); BILIRUBIN,DIRECT 1.2 mg/dL (0.0-0.4); BILIRUBIN,TOTAL 1.3 mg/dL (0.2-1.3); BLOOD UREA NITROGEN 81 mg/dL (7-20); CALCIUM 7.6 mg/dL (8.4-10.2); CARBON DIOXIDE 19 mmol/L (22-30); CHLORIDE 102 mmol/L (98-107); GLUCOSE 277 mg/dL (75-110); POTASSIUM 4.1 mmol/L (3.6-5.0); TOTAL PROTEIN 5.2 g/dL (6.3-8.2)
[2019-04-06 06:00] LABS: ABSOLUTE LYMPHOCYTES# (MANUAL) 1.4 10^3/uL (0.5-4.7); ABSOLUTE MONOCYTES # (MANUAL) 0.4 10^3/uL (0.1-1.4); ANISOCYTOSIS 1+; BASOPHILS % (MANUAL) 0 % (0-2); EOSINOPHILS % (MANUAL) 0 % (0-6); HYPOCHROMASIA 1+; LYMPHOCYTES % (MANUAL) 7 % (13-45); MONOCYTES % (MANUAL) 2 % (3-13); NUCLEATED RED BLOOD CELLS 2 /100 WBC (0); PLATELET COMMENT ADEQUATE; SEGMENTED NEUTROPHILS % (MAN) 91 % (42-78); TOTAL CELLS COUNTED 100
--- NOTE | 2019-04-06 08:42 | RADIOLOGY REPORT (SQ) ---
EXAM DESCRIPTION: CHEST SINGLE VIEW COMPLETED DATE/TIME: 04/06/2019 6:40 am REASON FOR STUDY: respiratory failure, pneumonia COMPARISON: AP view of the chest from 04/05/2019 EXAM PARAMETERS: NUMBER OF VIEWS: One view. TECHNIQUE: An AP view of the chest was obtained. RADIATION DOSE: NA LIMITATIONS: None. FINDINGS: LUNGS AND PLEURA: Low inspiratory lung volumes with diffuse bilateral patchy and asymmetri c parenchymal opacities. The costophrenic sulci are blunted. The contours of the hemidiaphragms are indistinct. There is no pneumothorax. MEDIASTINUM AND HILAR STRUCTURES: Stable mediastinal and hilar contours. HEART AND VASCULAR STRUCTURES: Stable cardiac silhouette. BONES: No acute findings. HARDWARE: The tip of the endotracheal tube projects 1.8 cm above the deandre. The tip of the right IJ central venous catheter projects at the level of the cavoatrial junction the tip of the endotracheal tube projects past the gastroesophageal junction and outside the field of view of the radiograph. OTHER: No other finding. IMPRESSION: Tubes and lines as above. Otherwise unchanged radiographic appearance of the chest. TECHNICAL DOCUMENTATION: JOB ID: [id number] 2010 [employer]- All Rights Reserved Reading location - IP/workstation name: [email or web address]
[2019-04-06] MEDS: IPRATROPIUM/ALBUTEROL 0.5-2.5 MG/3 ML AMPUL NEB SCH ×2 (08:44→16:39)
--- NOTE | 2019-04-06 09:10 | PDOC CRITICAL CARE PROG REPORT ---
General Date:: 04/06/19 ICU Day:: 2 Ventilator Day:: 2 Hospital Day:: 11 Resuscitation Status: Full Code Events in the past 12 to 24 Hours:: More stable from hemodynamic stand point Review of systems relevant to events:: Respiratory, CV, neurological. Reason for ICU Addmission:: Hypoxic respiratory failure due to pneumonia. Intubated and in septic shock - Medications: Medications reviewed and adjusted accordingly: Yes Vasopressors:: Vasopressin. Sedation:: Propofol. Physical Exam Vital Signs: Temp Pulse Resp BP Pulse Ox 97.8 F 96 19 112/49 L 94 04/06/19 03:55 04/06/19 08:52 04/06/19 08:52 04/05/19 18:00 04/06/19 08:52 Intake & Output 04/05/19 04/06/19 04/07/19 06:59 06:59 06:59 Intake Total 7180 4977 Output Total 297 1245 Balance 6883 3732 Weight 88.4 kg 94.2 kg Weight/Height Weight 94.2 kg Height 6 ft 2 in General appearance: PRESENT: no acute distress, thin Head exam: PRESENT: atraumatic, normocephalic Eye exam: PRESENT: conjunctiva pink, EOMI, PERRLA. ABSENT: scleral icterus Ear exam: PRESENT: normal external ear exam Mouth exam: PRESENT: moist, tongue midline Respiratory exam: PRESENT: crackles, decreased breath sounds, rhonchi, unlabored Cardiovascular exam: PRESENT: RRR, tachycardia. ABSENT: diastolic murmur, rubs, systolic murmur GI/Abdominal exam: PRESENT: normal bowel sounds, soft. ABSENT: distended, guarding, mass, organolmegaly, rebound, tenderness Rectal exam: PRESENT: deferred Gentrourinary exam: PRESENT: indwelling catheter Extremities exam: PRESENT: +1 edema Musculoskeletal exam: PRESENT: normal inspection Neurological exam: PRESENT: other - Sedated. Skin exam: PRESENT: dry, intact, warm. ABSENT: cyanosis, rash Tubes/Lines: PRESENT: Endotracheal Tube, Central Line, Arterial Catheter, Nasogastic Tube Laboratory/Radiographs Laboratory Results: 04/06/19 05:07 04/06/19 05:07 04/05/19 04/05/19 04/05/19 09:34 18:21 21:58 WBC 19.9 H RBC 2.81 L Hgb 8.0 L Hct 24.5 L MCV 87 MCH 28.3 MCHC 32.5 RDW 17.5 H Plt Count 317 Seg Neutrophils % Not Reportable Carbonic Acid 1.23 HCO3/H2CO3 Ratio 14:1 ABG pH 7.25 L ABG pCO2 40.8 ABG pO2 73.6 L ABG HCO3 17.3 L ABG O2 Saturation 92.4 L ABG Base Excess -9.4 FiO2 40% Sodium Potassium Chloride Carbon Dioxide Anion Gap BUN Creatinine Est GFR ( Amer) Glucose Lactic Acid Calcium Total Bilirubin AST Alkaline Phosphatase Total Protein Albumin Blood Type B NEGATIVE Antibody Screen NEGATIVE 04/05/19 04/05/19 04/06/19 21:58 21:58 05:07 WBC 19.8 H RBC 2.66 L Hgb 7.5 L Hct 23.0 L MCV 86 MCH 28.1 MCHC 32.6 RDW 17.6 H Plt Count 329 Seg Neutrophils % Not Reportable Carbonic Acid HCO3/H2CO3 Ratio ABG pH ABG pCO2 ABG pO2 ABG HCO3 ABG O2 Saturation ABG Base Excess FiO2 Sodium 134.7 L Potassium 4.6 Chloride 102 Carbon Dioxide 18 L Anion Gap 15 BUN 79 H Creatinine 3.58 H Est GFR ( Amer) 20 L Glucose 260 H Lactic Acid 1.3 Calcium 7.7 L Total Bilirubin AST Alkaline Phosphatase Total Protein Albumin Blood Type Antibody Screen 04/06/19 04/06/19 05:07 05:16 WBC RBC Hgb Hct MCV MCH MCHC RDW Plt Count Seg Neutrophils % Carbonic Acid 1.31 HCO3/H2CO3 Ratio 14:1 ABG pH 7.27 L ABG pCO2 43.4 ABG pO2 82.3 ABG HCO3 19.3 L ABG O2 Saturation 94.6 ABG Base Excess -7.1 FiO2 45% Sodium 135.5 L Potassium 4.1 Chloride 102 Carbon Dioxide 19 L Anion Gap 15 BUN 81 H Creatinine 3.28 H Est GFR ( Amer) 22 L Glucose 277 H Lactic Acid Calcium 7.6 L Total Bilirubin 1.3 AST 284 H Alkaline Phosphatase 82 Total Protein 5.2 L Albumin 2.5 L Blood Type Antibody Screen 03/26/19 03/26/19 03/31/19 07:06 07:06 03:31 Creatine Kinase 127 164 CK-MB (CK-2) Troponin I < 0.012 03/31/19 03/31/1903/31/20 03:31 05:20 05:20 Creatine Kinase 162 CK-MB (CK-2) 1.03 1.23 Troponin I 0.342 0.376 03/31/19 03/31/19 03/31/19 10:39 10:39 16:38 Creatine Kinase 157 115 CK-MB (CK-2) 1.36 Troponin I 0.301 03/31/19 16:38 Creatine Kinase CK-MB (CK-2) 1.31 Troponin I 0.323 Impressions: Shoulder X-Ray 03/26/19 00:00 IMPRESSION: NEGATIVE STUDY OF THE RIGHT SHOULDER. NO RADIOGRAPHIC EVIDENCE OF ACUTE INJURY. Cervical Spine CT 03/26/19 11:43 IMPRESSION: CHRONIC DEGENERATIVE CHANGES. NO ACUTE FINDINGS. Lower Extremity CT 03/26/19 11:43 IMPRESSION: IMPACTED FRACTURE OF THE RIGHT FEMORAL NECK. Fluoroscopy 03/27/19 00:00 IMPRESSION: IMAGE(S) OBTAINED DURING PROCEDURE. Hip/Pelvis X-Ray 03/27/19 00:00 IMPRESSION: IMAGE(S) OBTAINED DURING PROCEDURE. Chest X-Ray 04/06/19 02:45 IMPRESSION: Tubes and lines as above. Otherwise unchanged radiographic appearance of the chest. All labs, radiographs, diagnostic studies and EKGs were personally reviewed: Yes In addition, reports of radiographic and diagnostic studies were read: Yes Assessment and Plan - Diagnosis (1) Septic shock Is this a current diagnosis for this admission?: Yes Plan: Improving. Will start weaning vasopressin as MAP about 80. (2) Hypoadrenalism Is this a current diagnosis for this admission?: Yes Plan: Continue stress dose steroids. Of questionable value in septic shock but definately for CIRCI. (3) Acute respiratory failure with hypoxia Is this a current diagnosis for this admission?: Yes Plan: Starting to excersize and wean ventilator. (4) Chronic HFrEF (heart failure with reduced ejection fraction) Is this a current diagnosis for this admission?: Yes Plan: On milrinone as long as he is still in a bit of shock. (5) Pneumonia Qualifiers: Pneumonia type: due to unspecified organism Laterality: bilateral Lung location: unspecified part of lung Qualified Code(s): J18.9 - Pneumonia, unspecified organism Is this a current diagnosis for this admission?: Yes Plan: The fact that this could be an aspiration is possible. However his has PNA and location is not typicle for aspiratin. Continue antibiotics. Plan Summary: Wean vasopressin and ventilator. Decrease IVF. Still needs ventilator for now. Critical Time Critical Time (minutes): 40 Level of Care: ICU Anticipated discharge: SNF Within: Other - Too soon to tell. -: 1. The care of a critical patient is a dynamic process. This note is a advertising sales representative synopsis but static in nature. The timeframe for treatments given in order is not necessarily the actual time these treatments may have been done. 2. This patient requires critical care secondary to ongoing requirements for therapy not offered or safe outside the critical care environment. Transfer to a lower level of care will result in altered life or limb morbidity and mortality. 3. Multidisciplinary rounds completed. 4. ABCDE bundle addressed.
[2019-04-06] MEDS ORDERED: BISACODYL 10 MG SUPP.RECT PR ONE (09:13)
[2019-04-06] MEDS: ASPIRIN 81 MG TABLET, CHEWABLE NG SCH (10:30)
[2019-04-06] MEDS: POLYETHYLENE GLYCOL 3350 POWDER 17 GM/1 PACKET PO SCH (10:30)
[2019-04-06] MEDS: INSULIN GLARGINE,HUM.REC.ANLOG 1,000 UNIT/10 ML VIAL SUBCUT SCH ×2 (10:35→17:12)
[2019-04-06] MEDS: HYDROMORPHONE HCL INJ/PF 2 MG/ML AMPULE IV PRN ×2 (11:23→20:25)
[2019-04-06] MEDS: FLUCONAZOLE 400 MG/NS RTU 400 MG/200 ML RTUPB IV SCH (20:25)
[2019-04-06] MEDS: SENNOSIDES/DOCUSATE 8.6-50 MG 1 EACH TABLET NG SCH (21:47)
[2019-04-07] MEDS: IPRATROPIUM/ALBUTEROL 0.5-2.5 MG/3 ML AMPUL NEB SCH ×3 (00:15→16:30)
[2019-04-07] MEDS: INSULIN LISPRO 100 UNIT/ML 3 ML VIAL SUBCUT SCH ×6 (02:13→21:54)
[2019-04-07] MEDS: THIAMINE HCL 200 MG in NORMAL SALINE 100 ML IV SCH ×2 (06:03→18:35)
[2019-04-07] MEDS: LINEZOLID 600 MG/300 ML RTUPB IV SCH ×2 (06:04→17:37)
[2019-04-07] MEDS: HYDROCORTISONE SOD SUCCINATE INJ/PF 100 MG/2 ML SDV IV SCH ×3 (06:04→21:55)
[2019-04-07] MEDS: PIPERACILLIN SODIUM/TAZOBACTAM 3.375 GM in NORMAL SALINE 100 ML IV SCH (06:04)
[2019-04-07] MEDS: PROPOFOL 1,000 MG/100 ML INFUS..BTL IV PRN (06:05)
[2019-04-07] MEDS: HEPARIN SOD (PORCINE) 5,000 UNIT/ML 1 ML VIAL SUBCUT SCH ×3 (06:05→21:54)
[2019-04-07] MEDS: PANTOPRAZOLE SODIUM 40 MG PACKET.DR NG SCH (06:06)
[2019-04-07] MEDS: ASCORBIC ACID 500 MG TABLET PO SCH ×3 (06:07→17:35)
[2019-04-07 06:36] LABS: HEMATOCRIT 21.3 % (37.9-51.0); MEAN CORPUSCULAR HEMOGLOBIN 28.4 pg (27.0-33.4); MEAN CORPUSCULAR HGB CONC 33.3 g/dL (32.0-36.0); MEAN CORPUSCULAR VOLUME 85 fl (80-97); PLATELET COUNT 345 10^3/uL (150-450); RED CELL DISTRIBUTION WIDTH 17.3 % (11.5-14.0); WHITE BLOOD COUNT 19.4 10^3/uL (4.0-10.5)
[2019-04-07 06:57] LABS: ALBUMIN 2.3 g/dL (3.5-5.0); ALKALINE PHOSPHATASE 80 U/L (38-126); ANION GAP 11 (5-19); ASPARTATE AMINO TRANSFERASE 70 U/L (17-59); BILIRUBIN,DIRECT 0.3 mg/dL (0.0-0.4); BILIRUBIN,TOTAL 0.6 mg/dL (0.2-1.3); BLOOD UREA NITROGEN 91 mg/dL (7-20); CALCIUM 7.4 mg/dL (8.4-10.2); CARBON DIOXIDE 24 mmol/L (22-30); CHLORIDE 98 mmol/L (98-107); GLUCOSE 288 mg/dL (75-110); POTASSIUM 3.7 mmol/L (3.6-5.0); TOTAL PROTEIN 4.9 g/dL (6.3-8.2)
[2019-04-07 07:29] LABS: HEMOGLOBIN 7.1 g/dL (13.5-17.0)
[2019-04-07 07:32] LABS: ABSOLUTE LYMPHOCYTES# (MANUAL) 1.7 10^3/uL (0.5-4.7); ABSOLUTE MONOCYTES # (MANUAL) 0.6 10^3/uL (0.1-1.4); BASOPHILS % (MANUAL) 0 % (0-2); EOSINOPHILS % (MANUAL) 0 % (0-6); LYMPHOCYTES % (MANUAL) 9 % (13-45); MONOCYTES % (MANUAL) 3 % (3-13); SEGMENTED NEUTROPHILS % (MAN) 88 % (42-78); TOTAL CELLS COUNTED 100
[2019-04-07 07:34] LABS: ANISOCYTOSIS 1+; OVALOCYTES SLIGHT; PLATELET COMMENT ADEQUATE; POLYCHROMASIA SLIGHT; TEAR DROP CELLS SLIGHT
--- NOTE | 2019-04-07 09:03 | PDOC PROGRESS REPORT ---
Subjective Progress Note for:: 04/07/19 Subjective:: Patient currently intubated and sedated. Reason For Visit: SEPSIS Physical Exam Vital Signs: Temp Pulse Resp BP Pulse Ox 98.0 F 92 12 147/64 H 95 04/07/19 05:39 04/07/19 08:26 04/07/19 08:26 04/06/19 18:00 04/07/19 08:26 Intake & Output 04/06/19 04/07/19 04/08/19 06:59 06:59 06:59 Intake Total 4977 3928 Output Total 1245 1510 Balance 3732 2418 Weight 94.2 kg 97.5 kg Musculoskeletal exam: PRESENT: other - Right hip: Dressing clean/dry/intact no erythema or drainage. Moderate thigh swelling without change Results Laboratory Results: 04/07/19 06:18 04/07/19 06:18 04/06/19 04/07/19 04/07/19 05:07 06:18 06:18 WBC 19.4 H RBC 2.50 L Hgb 7.1 L Hct 21.3 L MCV 85 MCH 28.4 MCHC 33.3 RDW 17.3 H Plt Count 345 Seg Neutrophils % Not Reportable Sodium 133.3 L Potassium 3.7 Chloride 98 Carbon Dioxide 24 Anion Gap 11 BUN 91 H Creatinine 3.34 H Est GFR ( Amer) 22 L Glucose 288 H Calcium 7.4 L Total Bilirubin 0.6 AST 70 H Alkaline Phosphatase 80 Total Protein 4.9 L Albumin 2.3 L Triglycerides 248 H 04/04/19 10:10 Tracheal Aspirate Gram Stain - Final 04/04/19 10:10 Tracheal Aspirate Sputum Culture - Final C.albicans/C.dubliniensis Normal Lisa Absent 04/04/19 10:10 Nasophary (Mrsa Only) MRSA Culture - Final NO MRSA RECOVERED 03/26/19 03/26/19 03/31/19 07:06 07:06 03:31 Creatine Kinase 127 164 CK-MB (CK-2) Troponin I < 0.012 03/31/19 03/31/19 03/31/19 03:31 05:20 05:20 Creatine Kinase 162 CK-MB (CK-2) 1.03 1.23 Troponin I 0.342 0.376 03/31/19 03/31/19 03/31/19 10:39 10:39 16:38 Creatine Kinase 157 115 CK-MB (CK-2) 1.36 Troponin I 0.301 03/31/19 16:38 Creatine Kinase CK-MB (CK-2) 1.31 Troponin I 0.323 Impressions: Shoulder X-Ray 03/26/19 00:00 IMPRESSION: NEGATIVE STUDY OF THE RIGHT SHOULDER. NO RADIOGRAPHIC EVIDENCE OF ACUTE INJURY. Cervical Spine CT 03/26/19 11:43 IMPRESSION: CHRONIC DEGENERATIVE CHANGES. NO ACUTE FINDINGS. Lower Extremity CT 03/26/19 11:43 IMPRESSION: IMPACTED FRACTURE OF THE RIGHT FEMORAL NECK. Fluoroscopy 03/27/19 00:00 IMPRESSION: IMAGE(S) OBTAINED DURING PROCEDURE. Hip/Pelvis X-Ray 03/27/19 00:00 IMPRESSION: IMAGE(S) OBTAINED DURING PROCEDURE. Chest X-Ray 04/06/19 02:45 IMPRESSION: Tubes and lines as above. Otherwise unchanged radiographic appearance of the chest. Assessment & Plan - Diagnosis (1) Closed displaced fracture of right femoral neck Is this a current diagnosis for this admission?: Yes Plan: Patient currently intubated and sedated due to septic shock from pneumonia. Currently no sign or symptoms of infection from the surgical site. Patient may begin physical therapy once extubated. May consider radiographs and 7-10 days of the right hip once extubated. - Time Time Spent with patient: Less than 15 minutes
[2019-04-07] MEDS: INSULIN GLARGINE,HUM.REC.ANLOG 1,000 UNIT/10 ML VIAL SUBCUT SCH ×2 (09:08→17:34)
[2019-04-07] MEDS: MILRINONE LACTATE/D5W 20 MG/100 ML RTUINJ IV PRN (09:08)
[2019-04-07] MEDS: POLYETHYLENE GLYCOL 3350 POWDER 17 GM/1 PACKET PO SCH (09:11)
--- NOTE | 2019-04-07 09:27 | PDOC CRITICAL CARE PROG REPORT ---
General Date:: 04/07/19 ICU Day:: 3 Ventilator Day:: 3 Hospital Day:: 12 Resuscitation Status: Full Code Events in the past 12 to 24 Hours:: Septic shock abating. Try extubating. Review of systems relevant to events:: Respiratory, CV and orthopedics. Reason for ICU Addmission:: Hypoxic respiratory failure due to pneumonia. Intubated and in septic shock - Medications: Medications reviewed and adjusted accordingly: Yes Vasopressors:: Milrinone Sedation:: Diprivan. Physical Exam Vital Signs: Temp Pulse Resp BP Pulse Ox 97.4 F 92 12 155/0 H 95 04/07/19 08:00 04/07/19 08:26 04/07/19 08:26 04/07/19 08:00 04/07/19 08:26 Intake & Output 04/06/19 04/07/19 04/08/19 06:59 06:59 06:59 Intake Total 4977 3928 100 Output Total 1245 1510 225 Balance 3732 2418 -125 Weight 94.2 kg 97.5 kg Weight/Height Weight 97.5 kg Height 6 ft 2 in General appearance: PRESENT: no acute distress, thin Head exam: PRESENT: atraumatic, normocephalic Eye exam: PRESENT: conjunctiva pink, EOMI, PERRLA. ABSENT: scleral icterus Ear exam: PRESENT: normal external ear exam Mouth exam: PRESENT: moist, tongue midline Respiratory exam: PRESENT: clear to auscultation blank, decreased breath sounds. ABSENT: rales, rhonchi, wheezes Cardiovascular exam: PRESENT: RRR. ABSENT: diastolic murmur, rubs, systolic murmur GI/Abdominal exam: PRESENT: normal bowel sounds, soft. ABSENT: distended, guarding, mass, organolmegaly, rebound, tenderness Rectal exam: PRESENT: deferred Gentrourinary exam: PRESENT: indwelling catheter Extremities exam: PRESENT: full ROM, other - R hip incision clean.. ABSENT: calf tenderness, clubbing, pedal edema Musculoskeletal exam: PRESENT: normal inspection Neurological exam: PRESENT: other - Sedated Skin exam: PRESENT: dry, intact, warm. ABSENT: cyanosis, rash Tubes/Lines: PRESENT: Endotracheal Tube, Central Line, Arterial Catheter, Nasogastic Tube Laboratory/Radiographs Laboratory Results: 04/07/19 06:18 04/07/19 06:18 04/06/19 04/07/19 04/07/19 05:07 06:18 06:18 WBC 19.4 H RBC 2.50 L Hgb 7.1 L Hct 21.3 L MCV 85 MCH 28.4 MCHC 33.3 RDW 17.3 H Plt Count 345 Seg Neutrophils % Not Reportable Sodium 133.3 L Potassium 3.7 Chloride 98 Carbon Dioxide 24 Anion Gap 11 BUN 91 H Creatinine 3.34 H Est GFR ( Amer) 22 L Glucose 288 H Calcium 7.4 L Total Bilirubin 0.6 AST 70 H Alkaline Phosphatase 80 Total Protein 4.9 L Albumin 2.3 L Triglycerides 248 H 04/04/19 10:10 Tracheal Aspirate Gram Stain - Final 04/04/19 10:10 Tracheal Aspirate Sputum Culture - Final C.albicans/C.dubliniensis Normal Lisa Absent 04/04/19 10:10 Nasophary (Mrsa Only) MRSA Culture - Final NO MRSA RECOVERED 03/26/19 03/26/19 03/31/19 07:06 07:06 03:31 Creatine Kinase 127 164 CK-MB (CK-2) Troponin I < 0.012 03/31/19 03/31/19 03/31/19 03:31 05:20 05:20 Creatine Kinase 162 CK-MB (CK-2) 1.03 1.23 Troponin I 0.342 0.376 03/31/19 03/31/19 03/31/19 10:39 10:39 16:38 Creatine Kinase 157 115 CK-MB (CK-2) 1.36 Troponin I 0.301 03/31/19 16:38 Creatine Kinase CK-MB (CK-2) 1.31 Troponin I 0.323 Impressions: Shoulder X-Ray 03/26/19 00:00 IMPRESSION: NEGATIVE STUDY OF THE RIGHT SHOULDER. NO RADIOGRAPHIC EVIDENCE OF ACUTE INJURY. Cervical Spine CT 03/26/19 11:43 IMPRESSION: CHRONIC DEGENERATIVE CHANGES. NO ACUTE FINDINGS. Lower Extremity CT 03/26/19 11:43 IMPRESSION: IMPACTED FRACTURE OF THE RIGHT FEMORAL NECK. Fluoroscopy 03/27/19 00:00 IMPRESSION: IMAGE(S) OBTAINED DURING PROCEDURE. Hip/Pelvis X-Ray 03/27/19 00:00 IMPRESSION: IMAGE(S) OBTAINED DURING PROCEDURE. Chest X-Ray 04/06/19 02:45 IMPRESSION: Tubes and lines as above. Otherwise unchanged radiographic appearance of the chest. Assessment and Plan - Diagnosis (1) Septic shock Is this a current diagnosis for this admission?: Yes (2) Hypoadrenalism Is this a current diagnosis for this admission?: Yes (3) Acute respiratory failure with hypoxia Is this a current diagnosis for this admission?: Yes (4) Chronic HFrEF (heart failure with reduced ejection fraction) Is this a current diagnosis for this admission?: Yes (5) Pneumonia Qualifiers: Pneumonia type: due to unspecified organism Laterality: bilateral Lung location: unspecified part of lung Qualified Code(s): J18.9 - Pneumonia, unspecified organism Is this a current diagnosis for this admission?: Yes Critical Time Critical Time (minutes): 35 Level of Care: ICU Anticipated discharge: SNF Within: Other - Too soon to tell. -: 1. The care of a critical patient is a dynamic process. This note is a renewals representative synopsis but static in nature. The timeframe for treatments given in order is not necessarily the actual time these treatments may have been done. 2. This patient requires critical care secondary to ongoing requirements for therapy not offered or safe outside the critical care environment. Transfer to a lower level of care will result in altered life or limb morbidity and mortality. 3. Multidisciplinary rounds completed. 4. ABCDE bundle addressed.
[2019-04-07] MEDS ORDERED: NORMAL SALINE 250 ML IV PRN ×2 (10:35)
[2019-04-07] MEDS: PIPERACILLIN SODIUM/TAZOBACTAM 2.25 GM in NORMAL SALINE 50 ML IV SCH ×2 (15:50→20:49)
[2019-04-07] MEDS: HYDROMORPHONE HCL INJ/PF 2 MG/ML AMPULE IV PRN (16:27)
[2019-04-07] MEDS ORDERED: HYDRALAZINE HCL INJ/PF 20 MG/1 ML SDV IV ONE ×2 (18:30→20:15)
[2019-04-07 20:37] LABS: MEAN CORPUSCULAR HEMOGLOBIN 28.5 pg (27.0-33.4); MEAN CORPUSCULAR HGB CONC 33.4 g/dL (32.0-36.0); MEAN CORPUSCULAR VOLUME 85 fl (80-97); PLATELET COUNT 410 10^3/uL (150-450); RED BLOOD COUNT 3.41 10^6/uL (4.35-5.55); RED CELL DISTRIBUTION WIDTH 16.4 % (11.5-14.0); WHITE BLOOD COUNT 22.8 10^3/uL (4.0-10.5)
[2019-04-07 20:45] LABS: HEMOGLOBIN 9.7 g/dL (13.5-17.0)
[2019-04-07] MEDS: DEXTROSE 5%-WATER 1000 ML 1,000 ML with SODIUM BICARBONATE 150 MEQ IV PRN ×2 (20:50)
[2019-04-07] MEDS: FLUCONAZOLE 400 MG/NS RTU 400 MG/200 ML RTUPB IV SCH (20:50)
[2019-04-07] MEDS ORDERED: NORMAL SALINE INJ/PF 0.9% 10 ML SDV IV PRN (20:52)
[2019-04-07] MEDS ORDERED: HYDROMORPHONE HCL INJ/PF 2 MG/ML AMPULE IV ONE (21:45)
[2019-04-07] MEDS: SENNOSIDES/DOCUSATE 8.6-50 MG 1 EACH TABLET NG SCH (21:55)
--- NOTE | 2019-04-07 23:31 | Progress Note ---
Provider Note Provider Note: CARDIOLOGY PROGRESS NOTE by Dr. Chery Meraz on 04/07/2019. SUBJECTIVE:. The patient seems to be intubated and sedated. He is now more awake and responds appropriately. His blood pressure is high. He is off the milrinone. There is no arrhythmia seen on the monitor. His renal function is deteriorated. Will give 1 dose of hydralazine for his high blood pressure. PHYSICAL EXAMINATION: The patient appears to be chronically ill. He is intubated and sedated. Selected Entries 04/07/19 17:16 Temperature 98.7 F Temperature Core Source Pulse Rate 105 H Respiratory 11 L Rate Blood Pressure 170/71 H [Left Lower Arm ] Blood Pressure 104 Mean [Left Lower Arm] Blood Pressure Supine Position [Left Lower Arm] O2 Sat by Pulse 94 Oximetry Oxygen Delivery Mechanical Method ( Ventilator includes room air) Percent of 40 Oxygen HEAD: Is atraumatic normocephalic. EYES: Pupils are equal round regular reactive to light accommodation. Extraocular movements are normal. The patient's conjunctiva shows pallor. There is no scleral icterus. EARS: Tympanic membranes are intact. External auditory canals are clear. NOSE: There is no deviated nasal septum. There is no inflammation nasal mucous membrane. MOUTH: Mucous membranes of mouth are moist. Tongue is moist. There is no ulcers. THROAT: There is no redness of the oropharynx. There is no exudates. SKIN: There is no skin rashes. There is no skin lesions. There is no petechia or ecchymosis. NECK: Is supple. There is no JVD. Carotids are equal there is no bruit. There is no lymphadenopathy. LUNGS: Trachea central. There is no accessory muscle respiration use. There is a few dry crackles in the left base greater than right base. No rales of CHF. HEART: S1-S2 is heard. S1 is of normal intensity. There is no S3 gallop. There is no S4 gallop. There is noes rub. There is systolic murmur left sternal border and the apex there is no rub. ABDOMEN: Soft. Nontender. There is no hepatosplenomegaly.Bowel sounds are well heard. EXTREMITIES: Femorals are diminished. There is no femoral bruits. Leg pulses are diminished. There is no pedal edema. There is no DVT or cellulitis. There is no calf tenderness. There is no cyanosis or clubbing. COREMAKER FLOOR and PSYCHIATRIC: Not examined due to patient being intubated and sedated. Labs- All tests 24 hr 04/05/19 04/07/19 04/07/19 09:34 01:54 05:51 WBC RBC Hgb Hct MCV MCH MCHC RDW Plt Count Lymph % (Auto) [place] % (Auto) Eos % (Auto) Baso % (Auto) Absolute Neuts (auto) Absolute Lymphs (auto) Absolute Monos (auto) Absolute Eos (auto) Absolute Basos (auto) Total Counted Seg Neutrophils % Seg Neuts % (Manual) Lymphocytes % (Manual) Monocytes % (Manual) Eosinophils % (Manual) Basophils % (Manual) Abs Neuts (Manual) Abs Lymphs (Manual) Abs Monocytes (Manual) Absolute Eos (Manual) Abs Basophils (Manual) Platelet Comment Polychromasia Anisocytosis Tear Drop Cells Ovalocytes Sodium Potassium Chloride Carbon Dioxide Anion Gap BUN Creatinine Est GFR ( Amer) Est GFR (MDRD) Non-Af Glucose POC Glucose 368 H 328 H Calcium Total Bilirubin Direct Bilirubin Neonat Total Bilirubin Neonat Direct Bilirubin Neonat Indirect Bili AST ALT Alkaline Phosphatase Total Protein Albumin Blood Type B NEGATIVE Blood Type Confirm B NEGATIVE Antibody Screen NEGATIVE Crossmatch See Detail 04/07/19 04/07/19 04/07/19 06:18 06:18 09:06 WBC 19.4 H RBC 2.50 L Hgb 7.1 L Hct 21.3 L MCV 85 MCH 28.4 MCHC 33.3 RDW 17.3 H Plt Count 345 Lymph % (Auto) Not Reportable [place] % (Auto) Not Reportable Eos % (Auto) Not Reportable Baso % (Auto) Not Reportable Absolute Neuts (auto) Not Reportable Absolute Lymphs (auto) Not Reportable Absolute Monos (auto) Not Reportable Absolute Eos (auto) Not Reportable Absolute Basos (auto) Not Reportable Total Counted 100 Seg Neutrophils % Not Reportable Seg Neuts % (Manual) 88 H Lymphocytes % (Manual) 9 L Monocytes % (Manual) 3 Eosinophils % (Manual) 0 Basophils % (Manual) 0 Abs Neuts (Manual) 17.1 H Abs Lymphs (Manual) 1.7 Abs Monocytes (Manual) 0.6 Absolute Eos (Manual) 0.0 Abs Basophils (Manual) 0.0 Platelet Comment ADEQUATE Polychromasia SLIGHT Anisocytosis 1+ Tear Drop Cells SLIGHT Ovalocytes SLIGHT Sodium 133.3 L Potassium 3.7 Chloride 98 Carbon Dioxide 24 Anion Gap 11 BUN 91 H Creatinine 3.34 H Est GFR ( Amer) 22 L Est GFR (MDRD) Non-Af 18 L Glucose 288 H POC Glucose 343 H Calcium 7.4 L Total Bilirubin 0.6 Direct Bilirubin 0.3 Neonat Total Bilirubin Not Reportable Neonat Direct Bilirubin Not Reportable Neonat Indirect Bili Not Reportable AST 70 H ALT 187 H Alkaline Phosphatase 80 Total Protein 4.9 L Albumin 2.3 L Blood Type Blood Type Confirm Antibody Screen Crossmatch 04/07/19 04/07/19 04/07/19 13:11 17:19 20:18 WBC 22.8 H RBC 3.41 L Hgb 9.7 L D Hct 29.0 L MCV 85 MCH 28.5 MCHC 33.4 RDW 16.4 H Plt Count 410 Lymph % (Auto) [place] % (Auto) Eos % (Auto) Baso % (Auto) Absolute Neuts (auto) Absolute Lymphs (auto) Absolute Monos (auto) Absolute Eos (auto) Absolute Basos (auto) Total Counted Seg Neutrophils % Seg Neuts % (Manual) Lymphocytes % (Manual) Monocytes % (Manual) Eosinophils % (Manual) Basophils % (Manual) Abs Neuts (Manual) Abs Lymphs (Manual) Abs Monocytes (Manual) Absolute Eos (Manual) Abs Basophils (Manual) Platelet Comment Polychromasia Anisocytosis Tear Drop Cells Ovalocytes Sodium Potassium Chloride Carbon Dioxide Anion Gap BUN Creatinine Est GFR ( Amer) Est GFR (MDRD) Non-Af Glucose POC Glucose 307 H 288 H Calcium Total Bilirubin Direct Bilirubin Neonat Total Bilirubin Neonat Direct Bilirubin Neonat Indirect Bili AST ALT Alkaline Phosphatase Total Protein Albumin Blood Type Blood Type Confirm Antibody Screen Crossmatch 04/07/19 21:46 WBC RBC Hgb Hct MCV MCH MCHC RDW Plt Count Lymph % (Auto) [place] % (Auto) Eos % (Auto) Baso % (Auto) Absolute Neuts (auto) Absolute Lymphs (auto) Absolute Monos (auto) Absolute Eos (auto) Absolute Basos (auto) Total Counted Seg Neutrophils % Seg Neuts % (Manual) Lymphocytes % (Manual) Monocytes % (Manual) Eosinophils % (Manual) Basophils % (Manual) Abs Neuts (Manual) Abs Lymphs (Manual) Abs Monocytes (Manual) Absolute Eos (Manual) Abs Basophils (Manual) Platelet Comment Polychromasia Anisocytosis Tear Drop Cells Ovalocytes Sodium Potassium Chloride Carbon Dioxide Anion Gap BUN Creatinine Est GFR ( Amer) Est GFR (MDRD) Non-Af Glucose POC Glucose 255 H Calcium Total Bilirubin Direct Bilirubin Neonat Total Bilirubin Neonat Direct Bilirubin Neonat Indirect Bili AST ALT Alkaline Phosphatase Total Protein Albumin Blood Type Blood Type Confirm Antibody Screen Crossmatch Hip/Pelvis X-Ray 03/26/19 00:00 IMPRESSION: MILD IRREGULARITY OF THE RIGHT FEMORAL NECK, SUSPICIOUS FOR MINIMALLY DISPLACED FRACTURE. Shoulder X-Ray 03/26/19 00:00 IMPRESSION: NEGATIVE STUDY OF THE RIGHT SHOULDER. NO RADIOGRAPHIC EVIDENCE OF ACUTE INJURY. Cervical Spine CT 03/26/19 11:43 IMPRESSION: CHRONIC DEGENERATIVE CHANGES. NO ACUTE FINDINGS. Lower Extremity CT 03/26/19 11:43 IMPRESSION: IMPACTED FRACTURE OF THE RIGHT FEMORAL NECK. Chest X-Ray 03/26/19 14:13 IMPRESSION: Borderline cardiomegaly without pulmonary edema. Fluoroscopy 03/27/19 00:00 IMPRESSION: IMAGE(S) OBTAINED DURING PROCEDURE. Hip/Pelvis X-Ray 03/27/19 00:00 IMPRESSION: IMAGE(S) OBTAINED DURING PROCEDURE. Chest X-Ray 03/29/19 00:00 IMPRESSION: CHRONIC INTERSTITIAL CHANGES. POSSIBLE DEVELOPING INFILTRATE/ PNEUMONIA IN THE RIGHT UPPER LOBE. SIMILAR FINDING IN THE LEFT COSTOPHRENIC ANGLE. Chest X-Ray 04/03/19 00:00 IMPRESSION: Bilateral pneumonia. No significant change. Chest X-Ray 04/04/19 08:56 IMPRESSION: Diffuse parenchymal opacities without improvement. SUPPORT DEVICE(S) IN EXPECTED LOCATIONS. Chest X-Ray 04/05/19 00:00 IMPRESSION: CENTRAL VENOUS ACCESS CATHETER IN APPROPRIATE LOCATION. NO PNEUMOTHORAX. NEW CENTRAL LINE. Chest X-Ray 04/05/19 02:45 IMPRESSION: Improved aeration of the lungs. SUPPORT DEVICE(S) IN EXPECTED LOCATIONS. Chest X-Ray 04/06/19 02:45 IMPRESSION: Tubes and lines as above. Otherwise unchanged radiographic appearance of the chest. The patient's 24-hour intake is 3028 mL. Output is 1510 mL. IMPRESSION/RECOMMENDATION: 1. Acute respiratory failure hypercapnic most likely secondary to pneumonia 2. Septic shock: This is resolved. The patient is hypertensive. Will give 1 dose of hydralazine. 3. Bibasilar pneumonia: Continue antibiotics. 4.. Acute anemia: Most likely secondary to the patient's hip surgery/hip fracture. Agree with blood transfusion to keep the hemoglobin 10 or above. The patient's hemoglobin is further dropped to 6.8. He will be receiving blood transfusion. 5. Coronary artery disease and history of old myocardial infarction: No evidence of angina. No definite evidence of nondistention IL. Continue current anti-CAD medication. Hence would increase long-acting beta-khanh to 50 mg p.o. twice daily. Worsening renal function the patient's losartan is being held. Will restart later. If her renal dysfunction persists then will transition to hydralazine p.o.. Continue aspirin and isosorbide mononitrate. The patient also is on Plavix would continue this. 6. Cardiomyopathy with moderately reduced LV ejection fraction: Seems to be compensated no overt evidence of congestive heart failure. He is off milrinone. 7. Hypertension: Blood pressure has come up now with recent treatment of the septic shock with vasopressin. 8. Renal Failure: Seems to be worsening. Most likely secondary to infection. At present the patient is stage IV chronic kidney disease. There is further decrease in his GFR to 18 mL/per minute.. The patient with declining urine output. 9. Diabetes mellitus type 2 [id number]. 10.Status post surgery for right fracture due to accidental falls. 11.. Elevated troponin I: This is a type II supply demand mismatch IL secondary to the patient's acute anemia, acute renal insufficiency and pneumonia. No definite evidence of non-ST elevation IL. Hence we will treat underlying causes. Medications reviewed. Medications adjusted. Medical regimen and management plan discussed with smokehouse worker. Medical decision making is of high complexity. 40 minutes spent as patient more than 50% of time spent in direct patient care. Will follow. Discussed with the patient's family.
[2019-04-07] MEDS ORDERED: METOPROLOL SUCCINATE 25 MG TAB.SR.24H PO SCH (23:33)
[2019-04-08] MEDS: IPRATROPIUM/ALBUTEROL 0.5-2.5 MG/3 ML AMPUL NEB SCH ×3 (00:42→16:27)
[2019-04-08] MEDS: PIPERACILLIN SODIUM/TAZOBACTAM 2.25 GM in NORMAL SALINE 50 ML IV SCH ×4 (02:33→21:20)
[2019-04-08] MEDS: INSULIN LISPRO 100 UNIT/ML 3 ML VIAL SUBCUT SCH ×6 (02:35→21:35)
[2019-04-08 03:20] LABS: HEMATOCRIT 30.2 % (37.9-51.0); HEMOGLOBIN 10.1 g/dL (13.5-17.0); MEAN CORPUSCULAR HEMOGLOBIN 28.3 pg (27.0-33.4); MEAN CORPUSCULAR HGB CONC 33.3 g/dL (32.0-36.0); MEAN CORPUSCULAR VOLUME 85 fl (80-97); PLATELET COUNT 420 10^3/uL (150-450); RED BLOOD COUNT 3.56 10^6/uL (4.35-5.55); RED CELL DISTRIBUTION WIDTH 16.1 % (11.5-14.0)
[2019-04-08 03:32] LABS: ANION GAP 13 (5-19); BLOOD UREA NITROGEN 85 mg/dL (7-20); CALCIUM 7.9 mg/dL (8.4-10.2); CARBON DIOXIDE 28 mmol/L (22-30); CHLORIDE 97 mmol/L (98-107); GLUCOSE 180 mg/dL (75-110); TRIGLYCERIDES 268 mg/dL (<150)
[2019-04-08 03:34] LABS: POTASSIUM 2.9 mmol/L (3.6-5.0)
[2019-04-08 03:44] LABS: ABSOLUTE LYMPHOCYTES# (MANUAL) 1.4 10^3/uL (0.5-4.7); ABSOLUTE MONOCYTES # (MANUAL) 1.2 10^3/uL (0.1-1.4); BAND NEUTROPHILS % (MANUAL) 1 % (3-5); BASOPHILS % (MANUAL) 0 % (0-2); EOSINOPHILS % (MANUAL) 0 % (0-6); LYMPHOCYTES % (MANUAL) 5 % (13-45); MONOCYTES % (MANUAL) 5 % (3-13); NUCLEATED RED BLOOD CELLS 1 /100 WBC (0); SEGMENTED NEUTROPHILS % (MAN) 88 % (42-78); TOTAL CELLS COUNTED 100
[2019-04-08 03:45] LABS: ANISOCYTOSIS 1+
[2019-04-08] MEDS ORDERED: POTASSI CL 20 MEQ/50 ML RIDER 20 MEQ/50 ML RTUPB IV ONE (03:45)
[2019-04-08 03:46] LABS: PLATELET COMMENT ADEQUATE
[2019-04-08 03:47] LABS: POLYCHROMASIA SLIGHT
[2019-04-08] MEDS: POTASSI CL 20 MEQ/50 ML RIDER 20 MEQ/50 ML RTUPB IV SCH ×2 (03:52→05:37)
[2019-04-08] MEDS: HEPARIN SOD (PORCINE) 5,000 UNIT/ML 1 ML VIAL SUBCUT SCH ×3 (05:36→21:19)
[2019-04-08] MEDS: PANTOPRAZOLE SODIUM 40 MG PACKET.DR NG SCH (05:36)
[2019-04-08] MEDS: HYDROCORTISONE SOD SUCCINATE INJ/PF 100 MG/2 ML SDV IV SCH ×3 (05:36→21:19)
[2019-04-08] MEDS: LINEZOLID 600 MG/300 ML RTUPB IV SCH ×2 (05:37→18:08)
[2019-04-08] MEDS ORDERED: MECLIZINE HCL 25 MG TABLET ONE (05:39)
[2019-04-08] MEDS: HYDROMORPHONE HCL INJ/PF 2 MG/ML AMPULE IV PRN (06:15)
[2019-04-08] MEDS: POLYETHYLENE GLYCOL 3350 POWDER 17 GM/1 PACKET PO SCH (11:10)
[2019-04-08] MEDS: DEXTROSE 5%-WATER 1000 ML 1,000 ML with SODIUM BICARBONATE 150 MEQ IV PRN ×2 (11:10)
[2019-04-08] MEDS: FUROSEMIDE INJ/PF 20 MG/2 ML SDV IV SCH (11:11)
[2019-04-08] MEDS: INSULIN GLARGINE,HUM.REC.ANLOG 1,000 UNIT/10 ML VIAL SUBCUT SCH ×2 (11:11→18:07)
[2019-04-08] MEDS: ISOSORBIDE MONONITRATE 60 MG TAB.ER.24H PO SCH (11:12)
[2019-04-08] MEDS: ASPIRIN 81 MG TABLET, CHEWABLE NG SCH (11:12)
[2019-04-08] MEDS: AMLODIPINE BESYLATE 5 MG TABLET PO SCH (11:13)
[2019-04-08] MEDS: SERTRALINE HCL 50 MG TABLET PO SCH (11:13)
[2019-04-08] MEDS ORDERED: METOPROLOL TARTRATE 50 MG TABLET NG ONE (13:00)
[2019-04-08 13:09] LABS: ANION GAP 11 (5-19); BLOOD UREA NITROGEN 81 mg/dL (7-20); CARBON DIOXIDE 33 mmol/L (22-30); CHLORIDE 97 mmol/L (98-107); GLUCOSE 162 mg/dL (75-110); PHOSPHORUS 4.8 mg/dL (2.5-4.5); POTASSIUM 3.1 mmol/L (3.6-5.0)
[2019-04-08] MEDS: HYDRALAZINE HCL 25 MG TABLET NG SCH ×2 (13:40→21:19)
[2019-04-08] MEDS ORDERED: POTASSIUM CHLORIDE 10 MEQ TABLET.ER PO SCH (15:00)
[2019-04-08] MEDS ORDERED: ACETAMINOPHEN 325 MG TABLET NG PRN (15:30)
[2019-04-08] MEDS ORDERED: MECLIZINE HCL 25 MG TABLET NG PRN (15:30)
[2019-04-08] MEDS ORDERED: MAG HYDROX/AL HYDROX/SIMETH SUSP 30 ML UDCUP NG PRN (15:30)
[2019-04-08] MEDS: FLUCONAZOLE 400 MG/NS RTU 400 MG/200 ML RTUPB IV SCH (21:20)
[2019-04-08] MEDS: METOPROLOL TARTRATE 100 MG TABLET NG SCH (21:20)
[2019-04-08] MEDS: LOSARTAN POTASSIUM 25 MG TABLET NG SCH (21:20)
[2019-04-08] MEDS: SENNOSIDES/DOCUSATE 8.6-50 MG 1 EACH TABLET NG SCH (21:20)
[2019-04-08] MEDS ORDERED: ATORVASTATIN CALCIUM 20 MG TABLET NG SCH (22:00)
[2019-04-08] MEDS ORDERED: POTASSIUM CHLORIDE 20 MEQ PACKET NG SCH (22:00)
[2019-04-09] MEDS: HYDROMORPHONE HCL INJ/PF 2 MG/ML AMPULE IV PRN ×2 (00:07→17:36)
[2019-04-09] MEDS: IPRATROPIUM/ALBUTEROL 0.5-2.5 MG/3 ML AMPUL NEB SCH ×3 (00:27→15:59)
[2019-04-09 03:41] LABS: HEMATOCRIT 28.9 % (37.9-51.0); HEMOGLOBIN 9.6 g/dL (13.5-17.0); MEAN CORPUSCULAR HGB CONC 33.2 g/dL (32.0-36.0); MEAN CORPUSCULAR VOLUME 85 fl (80-97); PLATELET COUNT 401 10^3/uL (150-450); RED BLOOD COUNT 3.43 10^6/uL (4.35-5.55); RED CELL DISTRIBUTION WIDTH 16.5 % (11.5-14.0); WHITE BLOOD COUNT 23.6 10^3/uL (4.0-10.5)
[2019-04-09 03:50] LABS: ANION GAP 7 (5-19); BLOOD UREA NITROGEN 77 mg/dL (7-20); CALCIUM 7.9 mg/dL (8.4-10.2); CARBON DIOXIDE 36 mmol/L (22-30); CHLORIDE 99 mmol/L (98-107); GLUCOSE 88 mg/dL (75-110)
[2019-04-09 04:05] LABS: ABSOLUTE LYMPHOCYTES# (MANUAL) 0.9 10^3/uL (0.5-4.7); ABSOLUTE MONOCYTES # (MANUAL) 0.9 10^3/uL (0.1-1.4); BAND NEUTROPHILS % (MANUAL) 1 % (3-5); BASOPHILS % (MANUAL) 0 % (0-2); EOSINOPHILS % (MANUAL) 0 % (0-6); LYMPHOCYTES % (MANUAL) 4 % (13-45); MONOCYTES % (MANUAL) 4 % (3-13); NUCLEATED RED BLOOD CELLS 1 /100 WBC (0); SEGMENTED NEUTROPHILS % (MAN) 91 % (42-78); TOTAL CELLS COUNTED 100
[2019-04-09 04:06] LABS: ANISOCYTOSIS 1+; PLATELET COMMENT ADEQUATE
[2019-04-09] MEDS: INSULIN LISPRO 100 UNIT/ML 3 ML VIAL SUBCUT SCH ×6 (04:06→21:22)
[2019-04-09] MEDS: PIPERACILLIN SODIUM/TAZOBACTAM 2.25 GM in NORMAL SALINE 50 ML IV SCH ×4 (04:07→21:19)
[2019-04-09] MEDS: HEPARIN SOD (PORCINE) 5,000 UNIT/ML 1 ML VIAL SUBCUT SCH ×3 (05:51→21:20)
[2019-04-09] MEDS: HYDROCORTISONE SOD SUCCINATE INJ/PF 100 MG/2 ML SDV IV SCH ×3 (05:51→21:20)
[2019-04-09] MEDS: PANTOPRAZOLE SODIUM 40 MG PACKET.DR NG SCH (05:51)
[2019-04-09] MEDS: LINEZOLID 600 MG/300 ML RTUPB IV SCH ×2 (05:51→17:58)
[2019-04-09] MEDS: HYDRALAZINE HCL 25 MG TABLET NG SCH ×3 (05:52→21:21)
--- NOTE | 2019-04-09 09:12 | PDOC CRITICAL CARE PROG REPORT ---
General Date:: 04/09/19 ICU Day:: 5 Hospital Day:: 14 Resuscitation Status: Full Code Events in the past 12 to 24 Hours:: Extubated Review of systems relevant to events:: Neurological, CV, pulmonary Reason for ICU Addmission:: Hypoxic respiratory failure due to pneumonia. Intubated and in septic shock - Medications: Medications reviewed and adjusted accordingly: Yes Vasopressors:: None Sedation:: None Physical Exam Vital Signs: Temp Pulse Resp BP Pulse Ox 97.7 F 77 19 160/74 H 95 04/09/19 08:00 04/09/19 08:27 04/09/19 08:27 04/09/19 08:00 04/09/19 08:27 Intake & Output 04/08/19 04/09/19 04/10/19 06:59 06:59 06:59 Intake Total 3790 450 Output Total 4780 3650 175 Balance -990 -3200 -175 Weight 98.2 kg 97.2 kg Weight/Height Weight 97.2 kg Height 6 ft 2 in General appearance: PRESENT: no acute distress, thin Head exam: PRESENT: atraumatic, normocephalic Eye exam: PRESENT: conjunctiva pink, EOMI, PERRLA. ABSENT: scleral icterus Ear exam: PRESENT: normal external ear exam Mouth exam: PRESENT: moist, tongue midline Respiratory exam: PRESENT: clear to auscultation blank, decreased breath sounds. ABSENT: rales, rhonchi, wheezes Cardiovascular exam: PRESENT: RRR. ABSENT: diastolic murmur, rubs, systolic murmur Vascular exam: PRESENT: normal capillary refill GI/Abdominal exam: PRESENT: normal bowel sounds, soft. ABSENT: distended, gu arding, mass, organolmegaly, rebound, tenderness Rectal exam: PRESENT: deferred Gentrourinary exam: PRESENT: indwelling catheter Extremities exam: PRESENT: +1 edema - R edema > left Neurological exam: PRESENT: altered, awake Skin exam: PRESENT: dry, intact, warm. ABSENT: cyanosis, rash Tubes/Lines: PRESENT: Central Line, Nasogastic Tube Laboratory/Radiographs Laboratory Results: 04/09/19 03:30 04/09/19 03:30 04/08/19 04/09/19 04/09/19 12:30 03:30 03:30 WBC 23.6 H RBC 3.43 L Hgb 9.6 L Hct 28.9 L MCV 85 MCH 28.0 MCHC 33.2 RDW 16.5 H Plt Count 401 Seg Neutrophils % Not Reportable Sodium 141.0 142.4 Potassium 3.1 L 3.0 L* Chloride 97 L 99 Carbon Dioxide 33 H 36 H Anion Gap 11 7 BUN 81 H 77 H Creatinine 2.54 H 2.13 H Est GFR ( Amer) 30 L 37 L Glucose 162 H 88 Calcium 8.0 L 7.9 L Phosphorus 4.8 H Magnesium 2.3 03/26/19 03/26/19 03/31/19 07:06 07:06 03:31 Creatine Kinase 127 164 CK-MB (CK-2) Troponin I < 0.012 03/31/19 03/31/19 03/31/19 03:31 05:20 05:20 Creatine Kinase 162 CK-MB (CK-2) 1.03 1.23 Troponin I 0.342 0.376 03/31/19 03/31/19 03/31/19 10:39 10:39 16:38 Creatine Kinase 157 115 CK-MB (CK-2) 1.36 Troponin I 0.301 03/31/19 16:38 Creatine Kinase CK-MB (CK-2) 1.31 Troponin I 0.323 Impressions: Shoulder X-Ray 03/26/19 00:00 IMPRESSION: NEGATIVE STUDY OF THE RIGHT SHOULDER. NO RADIOGRAPHIC EVIDENCE OF ACUTE INJURY. Cervical Spine CT 03/26/19 11:43 IMPRESSION: CHRONIC DEGENERATIVE CHANGES. NO ACUTE FINDINGS. Lower Extremity CT 03/26/19 11:43 IMPRESSION: IMPACTED FRACTURE OF THE RIGHT FEMORAL NECK. Fluoroscopy 03/27/19 00:00 IMPRESSION: IMAGE(S) OBTAINED DURING PROCEDURE. Hip/Pelvis X-Ray 03/27/19 00:00 IMPRESSION: IMAGE(S) OBTAINED DURING PROCEDURE. Chest X-Ray 04/06/19 02:45 IMPRESSION: Tubes and lines as above. Otherwise unchanged radiographic appearance of the chest. All labs, radiographs, diagnostic studies and EKGs were personally reviewed: Yes In addition, reports of radiographic and diagnostic studies were read: Yes Assessment and Plan - Diagnosis (1) Septic shock Is this a current diagnosis for this admission?: Yes Plan: Resolved. Lactate 1.3. Off pressors. (2) Hypoadrenalism Is this a current diagnosis for this admission?: Yes Plan: Steroids cut back. BUN likely artificialy high. May be playing a role in co nfusion. (3) Acute respiratory failure with hypoxia Is this a current diagnosis for this admission?: Yes Plan: Off and on bipap. (4) Chronic HFrEF (heart failure with reduced ejection fraction) Is this a current diagnosis for this admission?: Yes Plan: Stable (5) Pneumonia Qualifiers: Pneumonia type: due to unspecified organism Laterality: bilateral Lung location: unspecified part of lung Qualified Code(s): J18.9 - Pneumonia, unspecified organism Is this a current diagnosis for this admission?: Yes Plan: Continue abx total of 7 days. Plan Summary: He is not moving R side well. Doubt stroke but will check CT. Critical Time Critical Time (minutes): 35 Level of Care: ICU Anticipated discharge: SNF Within: Other - Within a week. -: 1. The care of a critical patient is a dynamic process. This note is a office services representative synopsis but static in nature. The timeframe for treatments given in order is not necessarily the actual time these treatments may have been done. 2. This patient requires critical care secondary to ongoing requirements for therapy not offered or safe outside the critical care environment. Transfer to a lower level of care will result in altered life or limb morbidity and mortal ity. 3. Multidisciplinary rounds completed. 4. ABCDE bundle addressed.
[2019-04-09] MEDS ORDERED: NORMAL SALINE 1000 ML 1,000 ML IV PRN (09:19)
[2019-04-09] MEDS: METOPROLOL TARTRATE 100 MG TABLET NG SCH ×2 (09:40→21:22)
[2019-04-09] MEDS: SERTRALINE HCL 50 MG TABLET NG SCH (09:40)
[2019-04-09] MEDS: FUROSEMIDE INJ/PF 20 MG/2 ML SDV IV SCH (09:40)
[2019-04-09] MEDS: POTASSIUM CHLORIDE 20 MEQ PACKET NG SCH ×3 (09:41→17:59)
[2019-04-09] MEDS: POLYETHYLENE GLYCOL 3350 POWDER 17 GM/1 PACKET NG SCH (09:41)
[2019-04-09] MEDS: LOSARTAN POTASSIUM 25 MG TABLET NG SCH ×2 (09:41→21:21)
[2019-04-09] MEDS: AMLODIPINE BESYLATE 5 MG TABLET NG SCH (09:41)
[2019-04-09] MEDS: INSULIN GLARGINE,HUM.REC.ANLOG 1,000 UNIT/10 ML VIAL SUBCUT SCH ×2 (09:43→18:00)
--- NOTE | 2019-04-09 13:37 | RADIOLOGY REPORT (SQ) ---
EXAM DESCRIPTION: CT HEAD WITHOUT COMPLETED DATE/TIME: 04/09/2019 1:08 pm REASON FOR STUDY: Not waking up as expected, not moving R side well. COMPARISON: None. TECHNIQUE: Axial images acquired through the brain without intravenous contrast. Images reviewed wi th bone, brain and subdural windows. Additional sagittal and coronal reconstructions were generated. Images stored on PACS. All CT scanners at this facility use dose modulation, iterative reconstruction, and/or weight based d osing when appropriate to reduce radiation dose to as low as reasonably achievable (ALARA). [facility]: Dose Right [facility]: CareDose [facility]: Dose Right [facility]: Teradose 4D [facility]: SkyJam RADIATION DOSE: CT Rad equipment meets quality standard of care and radiation dose reduction techniq ues were employed. CTDIvol: 48.6 mGy. DLP: 929 mGy-cm. LIMITATIONS: None. FINDINGS: There are geographic areas of hypoattenuation associated with effacement of the -white matter differentiation and cerebral sulci in the posterior aspect of the left frontal lobe, left occ ipital lobe, and right cerebellar hemisphere. There is no acute intracranial hemorrhage, extra-axial fluid collection, mass effect or midline shift . There is no effacement of the basal subarachnoid cisterns. The globes are aphakic. The orbits are intact. There is a nasoenteric tube in place. The paranasal sinuses are clear. There is no calvarial fracture. IMPRESSION: Geographic areas of hypoattenuation associated with effacement of the -white matter differentiation and cerebral sulci in the posterior aspect of the left frontal lobe, left occipital l obe, and right cerebellar hemisphere concerning for embolic infarcts. Correlation with MRI is sugges stanley. EVIDENCE OF ACUTE STROKE: YES. COMMENT: Quality ID # [id number]: Final reports with documentation of one or more dose reduction techniques (e.g., Automated exposure control, adjustment of the mA and/or kV according to patient size, use of iterative reconstruction technique) TECHNICAL DOCUMENTATION: JOB ID: [id number] 2010 [employer]- All Rights Reserved Reading location - IP/workstation name: [email or web address]
[2019-04-09] MEDS: CLOPIDOGREL BISULFATE 75 MG TABLET PO SCH (17:58)
--- NOTE | 2019-04-09 19:35 | Progress Note ---
Provider Note Provider Note: CARDIOLOGY PROGRESS NOTE by Dr. Chery Padilla on 04/09/2019. SUBJECTIVE: The patient has been extubated yesterday. The patient appears to be lethargic. His CT scan shows new/recent stroke. In 3 areas. The patient moves all 4 extremities. But he is very lethargic and very drowsy. There is no arrhythmia seen on the monitor. He does not seem to be in any respiratory distress. His renal function/GFR has improved to 30 mL/min. PHYSICAL EXAMINATION: The patient appears to be chronically ill and malnourished . He is a frail build. Selected Entries 04/09/19 12:00 Temperature 97.6 F Temperature Oral Source Pulse Rate 68 Respiratory 20 Rate Blood Pressure 152/83 H [Left Upper Arm ] Blood Pressure 106 Mean [Left Upper Arm] Blood Pressure Supine Position [Left Upper Arm] O2 Sat by Pulse 93 Oximetry Oxygen Delivery Bi-pap Method ( includes room air) HEAD: Is atraumatic normocephalic. EYES: Pupils are equal round regular reactive to light accommodation. Extraocular movements are normal. The patient's conjunctiva shows pallor. There is no scleral icterus. EARS: Tympanic membranes are intact. External auditory canals are clear. NOSE: There is no deviated nasal septum. There is no inflammation nasal mucous membrane. MOUTH: Mucous membranes of mouth are moist. Tongue is moist. There is no ulcers. THROAT: There is no redness of the oropharynx. There is no exudates. SKIN: There is no skin rashes. There is no skin lesions. There is no petechia or ecchymosis. NECK: Is supple. There is no JVD. Carotids are equal there is no bruit. There is no lymphadenopathy. LUNGS: Trachea central. There is no accessory muscle respiration use. There is a few dry crackles in the left base greater than right base. No rales of CHF. HEART: S1-S2 is heard. S1 is of normal intensity. There is no S3 gallop. There is no S4 gallop. There is noes rub. There is systolic murmur left sternal border and the apex there is no rub. ABDOMEN: Soft. Nontender. There is no hepatosplenomegaly.Bowel sounds are well heard. EXTREMITIES: Femorals are diminished. There is no femoral bruits. Leg pulses are diminished. There is no pedal edema. There is no DVT or cellulitis. There is no calf tenderness. There is no cyanosis or clubbing. SENIOR TECH MANUFACTURING ENGINEERING: The patient is conscious but very drowsy. He is on BiPAP. He moves all 4 extremities. PSYCHIATRIC: The patient does not appear to be agitated or anxious. He is very lethargic. The patient's 24-hour intake is 800 mL. Output is 3650 mL. Labs- All tests 24 hr 04/09/19 04/09/19 04/09/19 02:42 03:30 03:30 WBC 23.6 H RBC 3.43 L Hgb 9.6 L Hct 28.9 L MCV 85 MCH 28.0 MCHC 33.2 RDW 16.5 H Plt Count 401 Lymph % (Auto) Not Reportable Morrow % (Auto) Not Reportable Eos % (Auto) Not Reportable Baso % (Auto) Not Reportable Absolute Neuts (auto) Not Reportable Absolute Lymphs (auto) Not Reportable Absolute Monos (auto) Not Reportable Absolute Eos (auto) Not Reportable Absolute Basos (auto) Not Reportable Total Counted 100 Seg Neutrophils % Not Reportable Seg Neuts % (Manual) 91 H Band Neutrophils % 1 L Lymphocytes % (Manual) 4 L Monocytes % (Manual) 4 Eosinophils % (Manual) 0 Basophils % (Manual) 0 Abs Neuts (Manual) 21.7 H Abs Lymphs (Manual) 0.9 Abs Monocytes (Manual) 0.9 Absolute Eos (Manual) 0.0 Abs Basophils (Manual) 0.0 Nucleated RBCs 1 Platelet Comment ADEQUATE Anisocytosis 1+ Sodium 142.4 Potassium 3.0 L* Chloride 99 Carbon Dioxide 36 H Anion Gap 7 BUN 77 H Creatinine 2.13 H Est GFR ( Amer) 37 L Est GFR (MDRD) Non-Af 30 L Glucose 88 POC Glucose 102 Calcium 7.9 L 04/09/19 04/09/19 04/09/19 05:50 12:31 17:44 WBC RBC Hgb Hct MCV MCH MCHC RDW Plt Count Lymph % (Auto) Morrow % (Auto) Eos % (Auto) Baso % (Auto) Absolute Neuts (auto) Absolute Lymphs (auto) Absolute Monos (auto) Absolute Eos (auto) Absolute Basos (auto) Total Counted Seg Neutrophils % Seg Neuts % (Manual) Band Neutrophils % Lymphocytes % (Manual) Monocytes % (Manual) Eosinophils % (Manual) Basophils % (Manual) Abs Neuts (Manual) Abs Lymphs (Manual) Abs Monocytes (Manual) Absolute Eos (Manual) Abs Basophils (Manual) Nucleated RBCs Platelet Comment Anisocytosis Sodium Potassium Chloride Carbon Dioxide Anion Gap BUN Creatinine Est GFR ( Amer) Est GFR (MDRD) Non-Af Glucose POC Glucose 90 106 60 L Calcium 04/09/19 04/09/19 04/09/19 18:17 18:44 21:14 WBC RBC Hgb Hct MCV MCH MCHC RDW Plt Count Lymph % (Auto) Morrow % (Auto) Eos % (Auto) Baso % (Auto) Absolute Neuts (auto) Absolute Lymphs (auto) Absolute Monos (auto) Absolute Eos (auto) Absolute Basos (auto) Total Counted Seg Neutrophils % Seg Neuts % (Manual) Band Neutrophils % Lymphocytes % (Manual) Monocytes % (Manual) Eosinophils % (Manual) Basophils % (Manual) Abs Neuts (Manual) Abs Lymphs (Manual) Abs Monocytes (Manual) Absolute Eos (Manual) Abs Basophils (Manual) Nucleated RBCs Platelet Comment Anisocytosis Sodium Potassium Chloride Carbon Dioxide Anion Gap BUN Creatinine Est GFR ( Amer) Est GFR (MDRD) Non-Af Glucose POC Glucose 168 H 146 H 84 Calcium Hip/Pelvis X-Ray 03/26/19 00:00 IMPRESSION: MILD IRREGULARITY OF THE RIGHT FEMORAL NECK, SUSPICIOUS FOR MINIMALLY DISPLACED FRACTURE. Shoulder X-Ray 03/26/19 00:00 IMPRESSION: NEGATIVE STUDY OF THE RIGHT SHOULDER. NO RADIOGRAPHIC EVIDENCE OF ACUTE INJURY. Cervical Spine CT 03/26/19 11:43 IMPRESSION: CHRONIC DEGENERATIVE CHANGES. NO ACUTE FINDINGS. Lower Extremity CT 03/26/19 11:43 IMPRESSION: IMPACTED FRACTURE OF THE RIGHT FEMORAL NECK. Chest X-Ray 03/26/19 14:13 IMPRESSION: Borderline cardiomegaly without pulmonary edema. Fluoroscopy 03/27/19 00:00 IMPRESSION: IMAGE(S) OBTAINED DURING PROCEDURE. Hip/Pelvis X-Ray 03/27/19 00:00 IMPRESSION: IMAGE(S) OBTAINED DURING PROCEDURE. Chest X-Ray 03/29/19 00:00 IMPRESSION: CHRONIC INTERSTITIAL CHANGES. POSSIBLE DEVELOPING INFILTRATE/ PNEUMONIA IN THE RIGHT UPPER LOBE. SIMILAR FINDING IN THE LEFT COSTOPHRENIC ANGLE. Chest X-Ray 04/03/19 00:00 IMPRESSION: Bilateral pneumonia. No significant change. Chest X-Ray 04/04/19 08:56 IMPRESSION: Diffuse parenchymal opacities without improvement. SUPPORT DEVICE(S) IN EXPECTED LOCATIONS. Chest X-Ray 04/05/19 00:00 IMPRESSION: CENTRAL VENOUS ACCESS CATHETER IN APPROPRIATE LOCATION. NO PNEUMOTHORAX. NEW CENTRAL LINE. Chest X-Ray 04/05/19 02:45 IMPRESSION: Improved aeration of the lungs. SUPPORT DEVICE(S) IN EXPECTED LOCATIONS. Chest X-Ray 04/06/19 02:45 IMPRESSION: Tubes and lines as above. Otherwise unchanged radiographic appearance of the chest. Head CT 04/09/19 00:00 IMPRESSION: Geographic areas of hypoattenuation associated with effacement of the -white matter differentiation and cerebral sulci in the posterior aspect of the left frontal lobe, left occipital lobe, and right cerebellar hemisphere concerning for embolic infarcts. Correlation with MRI is suggested. EVIDENCE OF ACUTE STROKE: YES. IMPRESSION/RECOMMENDATION: 1. Acute CVA by CT scan. 2. Acute respiratory failure hypercapnic most likely secondary to pneumonia.. He is extubated. The patient is on BiPAP. 3. Septic shock: This is resolved. The patient is hypertensive. Continue hydralazine. Would later restart the patient's ARB. 4. Bibasilar pneumonia: Continue antibiotics. 5.. Acute anemia: Most likely secondary to the patient's hip surgery/hip fracture. Agree with blood transfusion to keep the hemoglobin 10 or above. The patient's hemoglobin is further dropped to 6.8. He will be receiving blood transfusion. 6. Coronary artery disease and history of old myocardial infarction: No evidence of angina. No definite evidence of nondistention [place]. Continue current anti-CAD medication. Hence would increase long-acting beta-khanh to 50 mg p.o. twice daily. Worsening renal function the patient's losartan is being held. Will restart later. If her renal dysfunction persists then will transition to hydralazine p.o.. Continue aspirin and isosorbide mononitrate. The patient also is on Plavix would continue this. 7. Cardiomyopathy with moderately reduced LV ejection fraction: Seems to be compensated no overt evidence of congestive heart failure. He is off milrinone. 8. Hypertension: Blood pressure has come up now with recent treatment of the septic shock with vasopressin. Suppressant and milrinone have been discontinued. 9. Renal Failure: Seems to be proving. Most likely secondary to infection. At present the patient is stage IV chronic kidney disease. There is further increase in his GFR to 30 mL/per minute.. The patient with declining urine output. 10. Diabetes mellitus type 2 [id number]. 10.Status post surgery for right fracture due to accidental falls. 12.. Elevated troponin I: This is a type II supply demand mismatch [place] secondary to the patient's acute anemia, acute renal insufficiency and pneumonia. No definite evidence of non-ST elevation [place]. Hence we will treat underlying causes. Medications reviewed. Medical management and medical regimen discussed with auto body service mechanic. Medical decision making is of high complexity. 40 minutes spent on this patient with more than 50% time spent in direct patient care. Thom morrison.
[2019-04-09] MEDS: SENNOSIDES/DOCUSATE 8.6-50 MG 1 EACH TABLET NG SCH (21:22)
[2019-04-09] MEDS ORDERED: ATORVASTATIN CALCIUM 40 MG TABLET NG SCH (22:00)
[2019-04-09] MEDS ORDERED: ATORVASTATIN CALCIUM 20 MG TABLET NG SCH (22:00)
[2019-04-10] MEDS: IPRATROPIUM/ALBUTEROL 0.5-2.5 MG/3 ML AMPUL NEB SCH ×3 (00:06→15:35)
[2019-04-10] MEDS: INSULIN LISPRO 100 UNIT/ML 3 ML VIAL SUBCUT SCH ×3 (02:03→09:59)
[2019-04-10] MEDS: PIPERACILLIN SODIUM/TAZOBACTAM 2.25 GM in NORMAL SALINE 50 ML IV SCH ×2 (02:03→09:53)
[2019-04-10] MEDS: HYDROMORPHONE HCL INJ/PF 2 MG/ML AMPULE IV PRN ×2 (02:26→07:56)
[2019-04-10 03:57] LABS: ANION GAP 8 (5-19); BLOOD UREA NITROGEN 78 mg/dL (7-20); CALCIUM 8.5 mg/dL (8.4-10.2); CARBON DIOXIDE 39 mmol/L (22-30); CHLORIDE 100 mmol/L (98-107); CHOLESTEROL 106.55 mg/dL (0-200); GLUCOSE 82 mg/dL (75-110); POTASSIUM 3.4 mmol/L (3.6-5.0); TRIGLYCERIDES 159 mg/dL (<150)
[2019-04-10 04:08] LABS: DIRECT LDL 77 mg/dL (<100); VLDL CHOLESTEROL 31.8 mg/dL (10-31)
[2019-04-10] MEDS: HYDROCORTISONE SOD SUCCINATE INJ/PF 100 MG/2 ML SDV IV SCH (05:50)
[2019-04-10] MEDS: HEPARIN SOD (PORCINE) 5,000 UNIT/ML 1 ML VIAL SUBCUT SCH (05:50)
[2019-04-10] MEDS: HYDRALAZINE HCL 25 MG TABLET NG SCH (05:51)
[2019-04-10] MEDS: PANTOPRAZOLE SODIUM 40 MG PACKET.DR NG SCH (05:51)
[2019-04-10] MEDS: LINEZOLID 600 MG/300 ML RTUPB IV SCH (05:51)
[2019-04-10] MEDS ORDERED: NORMAL SALINE 1000 ML 1,000 ML IV PRN (06:28)
[2019-04-10] MEDS ORDERED: FUROSEMIDE INJ/PF 40 MG/4 ML SDV ONE (07:54)
--- NOTE | 2019-04-10 08:22 | RADIOLOGY REPORT (SQ) ---
EXAM DESCRIPTION: CHEST SINGLE VIEW COMPLETED DATE/TIME: 04/10/2019 5:53 am REASON FOR STUDY: tachypnea COMPARISON: 04/06/2019 EXAM PARAMETERS: NUMBER OF VIEWS: One view. TECHNIQUE: Single frontal radiographic view of the chest acquired. RADIATION DOSE: NA LIMITATIONS: None. FINDINGS: LUNGS AND PLEURA: Worsening diffuse bilateral parenchymal opacities throughout both lungs. Small bilateral effusions. No pneumothorax. MEDIASTINUM AND HILAR STRUCTURES: No masses. Contour normal. HEART AND VASCULAR STRUCTURES: Enlarged, stable. Cardiac silhouette largely obscured. BONES: No acute findings. HARDWARE: Extubation. Enteric tube tip below diaphragm but excluded by collimation. Right internal jugular central venous catheter tip at cavoatrial junction. OTHER: No other significant finding. IMPRESSION: Worsening diffuse bilateral parenchymal opacities throughout both lungs possibly represe nting multifocal pneumonia or edema/ARDS. Small bilateral effusions. Extubation. Remaining lines as above. TECHNICAL DOCUMENTATION: JOB ID: [id number] 2010 [employer]- All Rights Reserved Reading location - IP/workstation name: [email or web address]
[2019-04-10] MEDS: AMLODIPINE BESYLATE 5 MG TABLET NG SCH (09:53)
[2019-04-10] MEDS: LOSARTAN POTASSIUM 25 MG TABLET NG SCH (09:53)
[2019-04-10] MEDS: CLOPIDOGREL BISULFATE 75 MG TABLET PO SCH (09:53)
[2019-04-10] MEDS: POLYETHYLENE GLYCOL 3350 POWDER 17 GM/1 PACKET NG SCH (09:53)
[2019-04-10] MEDS: ASPIRIN 81 MG TABLET, CHEWABLE NG SCH (09:53)
[2019-04-10] MEDS: METOPROLOL TARTRATE 100 MG TABLET NG SCH (09:54)
[2019-04-10] MEDS: SERTRALINE HCL 50 MG TABLET NG SCH (09:54)
[2019-04-10] MEDS: POTASSIUM CHLORIDE 20 MEQ PACKET NG SCH (09:54)
[2019-04-10] MEDS ORDERED: FUROSEMIDE INJ/PF 20 MG/2 ML SDV IV SCH (10:00)
[2019-04-10] MEDS ORDERED: HYDROMORPHONE HCL INJ/PF 2 MG/ML AMPULE IV PRN (10:48)
[2019-04-10] MEDS: INSULIN GLARGINE,HUM.REC.ANLOG 1,000 UNIT/10 ML VIAL SUBCUT SCH (11:35)
--- NOTE | 2019-04-10 13:00 | PDOC CRITICAL CARE PROG REPORT ---
General Date:: 04/10/19 ICU Day:: 6 Hospital Day:: 15 Resuscitation Status: Do Not Resuscitate Events in the past 12 to 24 Hours:: He has ruled in for 3 strokes, having more difficulty with respiratory secretions. Review of systems relevant to events:: Respiratory, neurological. Reason for ICU Addmission:: Hypoxic respiratory failure due to pneumonia. - Medications: Medications reviewed and adjusted accordingly: Yes Vasopressors:: None Sedation:: None Physical Exam Vital Signs: Temp Pulse Resp BP Pulse Ox 97.8 F 95 23 H 141/80 H 90 L 04/10/19 10:00 04/10/19 10:00 04/10/19 12:33 04/10/19 11:40 04/10/19 12:33 Intake & Output 04/09/19 04/10/19 04/11/19 06:59 06:59 06:59 Intake Total 800 3663 560 Output Total 3650 2950 875 Balance -2850 713 -315 Weight 97.2 kg 96.7 kg Weight/Height Weight 96.7 kg Height 6 ft 2 in General appearance: PRESENT: no acute distress, thin Head exam: PRESENT: atraumatic, normocephalic Eye exam: PRESENT: conjunctiva pink, EOMI, PERRLA. ABSENT: scleral icterus Ear exam: PRESENT: normal external ear exam Mouth exam: PRESENT: moist, tongue midline Respiratory exam: PRESENT: accessory muscle use, crackles, rhonchi, tachypnea, unlabored Cardiovascular exam: PRESENT: RRR. ABSENT: diastolic murmur, rubs, systolic murmur GI/Abdominal exam: PRESENT: normal bowel sounds, soft. ABSENT: distended, guarding, mass, organolmegaly, rebound, tenderness Rectal exam: PRESENT: deferred Gentrourinary exam: PRESENT: indwelling catheter Extremities exam: PRESENT: +1 edema - Edema in R arm., other - Incision on R hip clean. Neurological exam: PRESENT: altered, other - Obtunded Laboratory/Radiographs Laboratory Results: 04/09/19 03:30 04/10/19 03:25 04/10/19 03:25 Sodium 146.5 H Potassium 3.4 L Chloride 100 Carbon Dioxide 39 H Anion Gap 8 BUN 78 H Creatinine 2.16 H Est GFR ( Amer) 36 L Glucose 82 Calcium 8.5 Triglycerides 159 H Cholesterol 106.55 LDL Cholesterol Direct 77 VLDL Cholesterol 31.8 H HDL Cholesterol 16 L 04/04/19 09:35 Blood Blood Culture - Final NO GROWTH IN 5 DAYS 04/04/19 09:27 Blood Blood Culture - Final NO GROWTH IN 5 DAYS 03/26/19 03/26/19 03/31/19 07:06 07:06 03:31 Creatine Kinase 127 164 CK-MB (CK-2) Troponin I < 0.012 03/31/19 03/31/19 03/31/19 03:31 05:20 05:20 Creatine Kinase 162 CK-MB (CK-2) 1.03 1.23 Troponin I 0.342 0.376 03/31/19 03/31/19 03/31/19 10:39 10:39 16:38 Creatine Kinase 157 115 CK-MB (CK-2) 1.36 Troponin I 0.301 03/31/19 16:38 Creatine Kinase CK-MB (CK-2) 1.31 Troponin I 0.323 Impressions: Shoulder X-Ray 03/26/19 00:00 IMPRESSION: NEGATIVE STUDY OF THE RIGHT SHOULDER. NO RADIOGRAPHIC EVIDENCE OF ACUTE INJURY. Cervical Spine CT 03/26/19 11:43 IMPRESSION: CHRONIC DEGENERATIVE CHANGES. NO ACUTE FINDINGS. Lower Extremity CT 03/26/19 11:43 IMPRESSION: IMPACTED FRACTURE OF THE RIGHT FEMORAL NECK. Fluoroscopy 03/27/19 00:00 IMPRESSION: IMAGE(S) OBTAINED DURING PROCEDURE. Hip/Pelvis X-Ray 03/27/19 00:00 IMPRESSION: IMAGE(S) OBTAINED DURING PROCEDURE. Head CT 04/09/19 00:00 IMPRESSION: Geographic areas of hypoattenuation associated with effacement of the -white matter differentiation and cerebral sulci in the posterior aspect of the left frontal lobe, left occipital lobe, and right cerebellar hemisphere concerning for embolic infarcts. Correlation with MRI is suggested. EVIDENCE OF ACUTE STROKE: YES. Chest X-Ray 04/10/19 00:00 IMPRESSION: Worsening diffuse bilateral parenchymal opacities throughout both lungs possibly representing multifocal pneumonia or edema/ARDS. Small bilateral effusions. Extubation. Remaining lines as above. All labs, radiographs, diagnostic studies and EKGs were personally reviewed: Yes In addition, reports of radiographic and diagnostic studies were read: Yes Assessment and Plan - Diagnosis (1) Septic shock Is this a current diagnosis for this admission?: Yes Plan: Resolved (2) Hypoadrenalism Is this a current diagnosis for this admission?: Yes Plan: Due to multiple illnesses. (3) Acute respiratory failure with hypoxia Is this a current diagnosis for this admission?: Yes Plan: He is having further increased need for higher FiO2. His CXR shows bilateral fluffy infiltrates. These have not improved with lasix. The family is resigned to the fact that his chances of good functional recovery are not good. We will proceed to make him comfortable and provide comfort measures. (4) Chronic HFrEF (heart failure with reduced ejection fraction) Is this a current diagnosis for this admission?: Yes Plan: Stable (5) Pneumonia Qualifiers: Pneumonia type: due to unspecified organism Laterality: bilateral Lung location: unspecified part of lung Qualified Code(s): J18.9 - Pneumonia, unspecified organism Is this a current diagnosis for this admission?: Yes Plan: Not resolved Plan Summary: Pt is now DNR with comfort measures. Critical Time Critical Time (minutes): 35 Level of Care: ICU Anticipated discharge: Hospice Within: within 24 hours -: 1. The care of a critical patient is a dynamic process. This note is a claims service representative synopsis but static in nature. The timeframe for treatments given in order is not necessarily the actual time these treatments may have been done. 2. This patient requires critical care secondary to ongoing requirements for therapy not offered or safe outside the critical care environment. Transfer to a lower level of care will result in altered life or limb morbidity and mortality. 3. Multidisciplinary rounds completed. 4. ABCDE bundle addressed.
[2019-04-10] MEDS ORDERED: HYDROMORPHONE HCL INJ/PF 2 MG/ML AMPULE ONE (14:18)
[2019-04-10] MEDS ORDERED: HYDROMORPHONE HCL INJ/PF 2 MG/ML AMPULE IV ONE (14:30)
--- NOTE | 2019-04-10 15:17 | Death Summary ---
Summary Date : 04/10/19 Time of :: 14:30 Autopsy: No Resuscitation Status: Comfort Measures Only Consulting Provider: Devonte Tariq MD - Final Diagnosis (1) Septic shock Is this a current diagnosis for this admission?: Yes (2) Hypoadrenalism Is this a current diagnosis for this admission?: Yes (3) Acute respiratory failure with hypoxia Is this a current diagnosis for this admission?: Yes (4) Chronic HFrEF (heart failure with reduced ejection fraction) Is this a current diagnosis for this admission?: Yes (5) Pneumonia Is this a current diagnosis for this admission?: Yes Hospital Course:: This patient was a 73 yo man who was admitted with a fractured R hip which was repaired. Several days post-op he deveoped a pneumonia, unsure if it was aspiration, but treated with antibiotics. Despite this he went into septic shock, was intubated, and also found to be hypoadrenal. He was extubated but remained sluggish requiring bipap and the found to not be moving his R arm. This had been hurt in the fall that fractured his hip but he underwent a CT finding a total of 3 strokes, cerebellar, frontal and occipital parietal. He was treated as a new stroke but his respiratory status worsened and his family felt that he had been threw enough and made him comfort care and he quickly at 14:30PM on 04/10 with family present.
[2019-04-10 15:47] VITALS: BP 130/78
[2019-04-10] MEDS ORDERED: HYDROCORTISONE SOD SUCCINATE INJ/PF 100 MG/2 ML SDV IV SCH (18:00)
--- NOTE | 2019-04-10 23:43 | Progress Note ---
Provider Note Provider Note: CARDIOLOGY note: The patient's family has made the patient comfort measures. Hence rounds not done today. Will sign off.
--- NOTE | 2019-04-12 16:29 | XCELERA REPORT ---
[address] [address] Transthoracic Echocardiogram Report Name: FLORENTINO HAMEED JR, JR Age: 73 yrs Gender: Male : 1945 Patient Status: Inpatient Patient Location: ICU^605^A Study Date: 04/10/2019 09:14 AM Height: 74 in Weight: 213 lb BSA: 2.2 m2 Procedure: A two-dimensional transthoracic echocardiogram with color flow and Doppler was performed. The study was technically limited with all images being suboptimal in quality. Reason For Study: CVA History: CVA. Ordering Physician: SHARDA DUBON Performed By: Allegra Klein Interpretation Summary The left ventricle is mildly to moderately dilated. There is normal left ventricular wall thickness. LV EF is 25% to 30% Left ventricular systolic function is severely reduced. Doppler measurements suggest impaired left ventricular relaxation, which is associated with grade I/IV or mild diastolic dysfunction There is severe global hypokinesis of the left ventricle. There is no thrombus. No VSD,ASD,or PFO seen The right ventricle is mildly dilated. The right ventricle is not well visualized secondary to technical limitations The right atrium is mild to moderately dilated. The left atrium is moderately dilated. There is no evidence of mitral valve prolapse. There is no vegetation seen on the mitral valve. There is no mitral valve stenosis. There is a moderate amount of mitral regurgitation There is no aortic valvular vegetation. There is no aortic valve stenosis There is aortic sclerosis without aortic stenosis. No aortic regurgitation is present. There is no tricuspid stenosis. There is a moderate amount of tricuspid regurgitation There is servere pulmonary hypertension by echo RVSP is 86 to 91 m of Hg ,with RA mean of 15 to 20. There is no pulmonic valvular stenosis. There is a trace amount of pulmonic regurgitation The aortic root is normal size. The inferior vena cava appeared dilated and decreased < 50% with respiration (RAP 15-20 mmHg) Minimal pericardial effusion. There are no echocardiographic or Doppler indications for cardiac tamponade MMode/2D Measurements & Calculations RVDd: 3.0 cm LVIDd: 5.6 cm FS: 14.9 % Ao root diam: 2.8 cm IVSd: 0.92 cm LVIDs: 4.7 cm EDV(Teich): 152.3 ml Ao root area: 6.2 cm2 LVPWd: 0.85 cm ESV(Teich): 104.9 ml LA dimension: 4.7 cm EF(Teich): 31.2 % LVOT diam: 1.9 cm LVOT area: 2.8 cm2 Doppler Measurements & Calculations MV E max leslie: MV P1/2t max leslie: Ao V2 max: LV V1 max P.5 cm/sec 75.5 cm/sec 143.3 cm/sec 2.4 mmHg MV A max leslie: MV P1/2t: 57.5 msec Ao max PG: LV V1 max: 76.5 cm/sec MVA(P1/2t): 3.8 cm2 8.2 mmHg 76.7 cm/sec MV E/A: 0.97 MV dec slope: GABI(V,D): 1.5 cm2 384.9 cm/sec2 MV dec time: 0.20 sec PA V2 max: PI end-d leslie: TR max leslie: MV P1/2t-pr_phl: 63.7 cm/sec 187.3 cm/sec 421.0 cm/sec 57.5 msec PA max PG: TR max P.6 mmHg 70.9 mmHg Left Ventricle The left ventricle is mildly to moderately dilated. There is normal left ventricular wall thickness. LV EF is 25% to 30%. Left ventricular systolic function is severely reduced. Doppler measurements suggest impaired left ventricular relaxation, which is associated with grade I/IV or mild diastolic dysfunction. There is severe global hypokinesis of the left ventricle. There is no thrombus. No VSD,ASD,or PFO seen. Right Ventricle The right ventricle is mildly dilated. The right ventricle is not well visualized secondary to technical limitations. Atria The right atrium is mild to moderately dilated. The left atrium is moderately dilated. Mitral Valve There is no evidence of mitral valve prolapse. There is no vegetation seen on the mitral valve. There is no mitral valve stenosis. There is a moderate amount of mitral regurgitation. Aortic Valve There is no aortic valvular vegetation. There is no aortic valve stenosis. There is aortic sclerosis without aortic stenosis. No aortic regurgitation is present. Tricuspid Valve There is no tricuspid stenosis. There is a moderate amount of tricuspid regurgitation. There is servere pulmonary hypertension by echo. RVSP is 86 to 91 m of Hg ,with RA mean of 15 to 20. Pulmonic Valve There is no pulmonic valvular stenosis. There is a trace amount of pulmonic regurgitation. Great Vessels The aortic root is normal size. The inferior vena cava appeared dilated and decreased < 50% with respiration (RAP 15-20 mmHg). Effusions Minimal pericardial effusion. There are no echocardiographic or Doppler indications for cardiac tamponade. : SHARDA DUBON, Chery
== END 2019-04-10 14:30 | DRG 480 ==
LOC: ER 06:45 → EH 14:58 → 4S 17:13 → 3S 03-31 05:17 → ICU 04-04 08:03
PROVIDERS: ADMIT Anesthesiology; ATTEND Anesthesiology
PROC: 0QS634Z Reposition Right Upper Femur with Internal Fixation Device, Percutaneous Approach (ICD-10-PCS; principal; 2019-03-27 15:00)
PROC: 30233N1 Transfusion of Nonautologous Red Blood Cells into Peripheral Vein, Percutaneous Approach (ICD-10-PCS; 2019-03-31)
PROC: 5A1955Z Respiratory Ventilation, Greater than 96 Consecutive Hours (ICD-10-PCS; 2019-04-04)
PROC: 0BH17EZ Insertion of Endotracheal Airway into Trachea, Via Natural or Artificial Opening (ICD-10-PCS; 2019-04-04)
PROC: 02H633Z Insertion of Infusion Device into Right Atrium, Percutaneous Approach (ICD-10-PCS; 2019-04-04)
PROC: 02HV33Z Insertion of Infusion Device into Superior Vena Cava, Percutaneous Approach (ICD-10-PCS; 2019-04-04)
PROC: 30233N1 Transfusion of Nonautologous Red Blood Cells into Peripheral Vein, Percutaneous Approach (ICD-10-PCS; 2019-04-05)
PROC: 30233N1 Transfusion of Nonautologous Red Blood Cells into Peripheral Vein, Percutaneous Approach (ICD-10-PCS; 2019-04-07)
DX: S72.091A Other fracture of head and neck of right femur, initial encounter for closed fracture (principal); A41.9 Sepsis, unspecified organism; R65.21 Severe sepsis with septic shock; I21.A1 Myocardial infarction type 2; J96.02 Acute respiratory failure with hypercapnia; I63.541 Cerebral infarction due to unspecified occlusion or stenosis of right cerebellar artery; J96.01 Acute respiratory failure with hypoxia; I63.89 Other cerebral infarction; N17.9 Acute kidney failure, unspecified; I50.42 Chronic combined systolic (congestive) and diastolic (congestive) heart failure; I42.9 Cardiomyopathy, unspecified; E27.40 Unspecified adrenocortical insufficiency; Z51.5 Encounter for palliative care; W18.30XA Fall on same level, unspecified, initial encounter; Y92.002 Bathroom of unspecified non-institutional (private) residence as the place of occurrence of the external cause; I11.0 Hypertensive heart disease with heart failure; I25.2 Old myocardial infarction; E78.5 Hyperlipidemia, unspecified; E11.9 Type 2 diabetes mellitus without complications; Z86.73 Personal history of transient ischemic attack (TIA), and cerebral infarction without residual deficits; R29.6 Repeated falls; I27.20 Pulmonary hypertension, unspecified; D64.9 Anemia, unspecified; E87.5 Hyperkalemia; I25.10 Atherosclerotic heart disease of native coronary artery without angina pectoris; K21.9 Gastro-esophageal reflux disease without esophagitis; M19.90 Unspecified osteoarthritis, unspecified site; Z87.891 Personal history of nicotine dependence; Z79.82 Long term (current) use of aspirin; Z79.84 Long term (current) use of oral hypoglycemic drugs; Z79.899 Other long term (current) drug therapy; Z88.6 Allergy status to analgesic agent; Z79.02 Long term (current) use of antithrombotics/antiplatelets; S40.011A Contusion of right shoulder, initial encounter; Z66 Do not resuscitate; Z87.828 Personal history of other (healed) physical injury and trauma
CPT/HCPCS: 01220; 31500; 36415; 36430; 36556; 36600; 36620; 70450; 71045; 72125; 78466; 80048; 80053; 80061; 81001; 82533; 82550; 82553; 82803; 82962; 83036; 83605; 83735; 83930; 83935; 84100; 84300; 84478; 84484; 85025; 85027; 85610; 85730; 86850; 86900; 86901; 86920; 87040; 87070; 87205; 87804; 93005; 93010; 93306; 94002; 94003; 94640; 94660; 94667; 94799; 99285; 99291; 99292; J0610; A9538; C1713; C1769; C9113; J0131; J0360; J0690; J0692; J1170; J1450; J1630; J1642; J1644; J1650; J1720; J1815; J1940; J1956; J2020; J2060; J2260; J2270; J2405; J2543; J2704; J3010; J3370; J3411; J3480; J3490; J7030; J7050; J7060; J7614; J7620; P9016; P9041; Q9969